=== PATIENT | female | born 1955 | race Caucasian/White ===

== ENCOUNTER 2024-12-09 16:17 | Emergency (ER) | payer MEDICARE, OTHER, SELFPAY ==
[2024-12-09 16:27] VITALS: BP 128/78; PULSE 74; TEMP 36.8; O2SAT 94; BMI 20.7
--- NOTE | 2024-12-09 16:42 | ED_ITS ---
HPI HPI - General Adult General Chief complaint: Upper Respiratory Infection Stated complaint: CONGESTION,COUGH 5TH DAY Time Seen by Provider: 12/09/24 16:19 Source: patient Mode of arrival: walk-in Related Data Previous Rx's ?Medication ?Instructions ?Recorded albuterol sulfate 90 mcg/actuation 2 inh inhalation QID PRN shortness 12/09/24 aerosol inhaler of breath or wheezing #8.5 grams benzonatate 200 mg capsule 200 mg PO TID PRN cough #20 caps 12/09/24 methylprednisolone 4 mg tablets in 4 mg PO DAILY #21 ea 12/09/24 a dose pack (Medrol (Sonny)) Allergies Allergy/AdvReac Type Severity Reaction Status Date / Time ibuprofen Allergy Severe Swelling Verified 12/09/24 16:32 of Lip/Tongue/Throat morphine Allergy Severe Vomiting Verified 12/09/24 16:32 Opioid HPI Opioid Management Most Recent Opioid Data: No Data to Display PFSH PFSH Social History Little interest or pleasure in doing things: not at all Feeling down, depressed, or hopeless: not at all Exam Narrative Exam Narrative: Prior to examining the patient, I have washed with hospital approved and provided Antiseptic [employer] and have also applied gloves.? Prior to touching the patient, I asked for consent to examine the patient.? General: Alert and oriented, well nourished, mild distress. Eye: PERRL, EOMI, normal conjunctiva. 4 mm and reactive HENT: Normocephalic, normal hearing, moist oral mucosa, no scleral icterus, no sinus tenderness. Tympanic membranes are not red, dull, bulging. Posterior oropharynx has no erythema, edema, or exudate Neck: Supple, non-tender, no carotid bruits, no JVD, no lymphadenopathy. Lungs: Clear to auscultation and percussion, non-labored respiration. Coarse breath sounds with scant end expiratory wheezing throughout. There is no rales or rhonchi appreciated. Heart: Normal rate, regular rhythm, 2 out of 4 systolic ejection murmur best auscultated at the right upper sternal border, gallop or edema. Abdomen: Soft, non-tender, non-distended, normal bowel sounds, no masses. Musculoskeletal: Normal range of motion and strength, no tenderness or swelling. Skin: Skin is warm, dry and pink, no rashes or lesions. Neurologic: Awake, alert, and oriented X3, CN II-XII intact. Psychiatric: Cooperative, appropriate mood and affect.? Following the conclusion of the examination, I have washed my hands thoroughly after removing examination gloves. Constitutional Vital Signs, click to edit/add: Last Vital Signs Temp 98.2 F 12/09/24 16:27 Pulse 75 12/09/24 17:00 Resp 18 12/09/24 16:27 BP 128/78 12/09/24 16:27 Pulse Ox 95 12/09/24 17:00 O2 Del Method Room Air 12/09/24 17:00 Course Course Hospital Course: The murmur is unknown to the patient. So on the physical exam discussion I recommended that she follow-up with her physician once her symptoms resolved. I did describe that they could have some innocent murmurs in times of illnesses but I did want her to proceed with getting follow-up for that. Vital Signs Vital signs: Vital Signs Temperature 98.2 F 12/09/24 16:27 Pulse Rate 74 12/09/24 16:27 Respiratory Rate 18 12/09/24 16:27 Blood Pressure 128/78 12/09/24 16:27 Pulse Oximetry 94 L 12/09/24 16:27 Oxygen Delivery Method Room Air 12/09/24 16:27 Temperature 98.2 F 12/09/24 16:27 Pulse Rate 75 12/09/24 17:00 Respiratory Rate 18 12/09/24 16:27 Blood Pressure 128/78 12/09/24 16:27 Pulse Oximetry 95 12/09/24 17:00 Oxygen Delivery Method Room Air 12/09/24 17:00 Medical Decision Making Lab Data Labs: Lab Results 12/09/24 Range/Units 16:34 Influenza Type A Ag Negative Influenza Type B Ag Negative SARS-CoV-2 Ag (CV2AG) Negative (NEGATIVE) Discharge Plan Discharge Chief Complaint: Upper Respiratory Infection Clinical Impression: Heart murmur, Bronchitis Patient Disposition: Home, Self-Care Time of Disposition Decision: 17:30 Condition: Good Mode of Transportation: Private Vehicle Prescriptions / Home Meds: New benzonatate 200 mg capsule 200 mg PO TID PRN (Reason: cough) Qty: 20 0RF albuterol sulfate 90 mcg/actuation HFA aerosol inhaler 2 inh inhalation QID PRN (Reason: shortness of breath or wheezing) Qty: 8.5 0RF methylprednisolone [Medrol (Sonny)] 4 mg tablets,dose pack 4 mg PO DAILY Qty: 21 0RF Rx Instructions: please use directions on package. Print Language: Hebrew Instructions: Acute Bronchitis (ED), Heart Murmur (ED) Additional Instructions: It was an honor to take care of you today. Thank you for trusting me with your care. Feel better soon.
[2024-12-09 16:55] LABS: Influenza Virus A Antigen Negative; Influenza Virus B Antigen Negative; Internal Control Within Normal Limits; SARS-CoV-2 Ag NEGATIVE (NEGATIVE)
[2024-12-09] MEDS: IPRATROPIUM/ALBUTEROL SULFATE 3 ML AMPUL.NEB IH (16:59)
[2024-12-09 17:00] VITALS: PULSE 75; O2SAT 95
[2024-12-09] MEDS: DEXAMETHASONE SOD PHOS 10 MG/ML VIAL PO (17:09)
== END 2024-12-09 17:40 | disposition home or self-care (01) ==
PROVIDERS: Emergency Provider Emergency Medicine; PCP Family Medicine
DX: J40 Bronchitis, not specified as acute or chronic (principal); R01.1 Cardiac murmur, unspecified
CPT/HCPCS: 71046; 87804; 87811; 94640; 99285; J1100

== ENCOUNTER 2025-06-11 17:59 | Emergency (ER) | payer MEDICARE, OTHER, SELFPAY ==
[2025-06-11] VITALS (7 sets, daily range): BP systolic 109–150; BP diastolic 75–77; PULSE 64–70; TEMP 36.7; O2SAT 92–98; BMI 20.6
--- OUTSIDE RECORDS SUMMARY | 2025-06-11 18:10 | XMS_ITS | CCD ---
Author Organization [facility] Care Team Providers Care Live In Companion Name Role Phone MD Rip Torres Attending Provider Furlong, DO Rogers Primary Care Provider Chinedu, Rogers Primary Care Unavailable Rip Torres Attending Unavailable Rip Torres Admitting Unavailable Rogers Che MD Primary Care Provider [phone] ROGERS CHE Referring Unavailable TURNERLONG, ROGERS Najera Primary Care Unavailable TurnerRogers may DO Primary Care Provider Rogers Che DO Primary Care Provider [phone] NEREYDA SINGH Referring Unavailable ROGERS CHE Primary Care Unavailable MAGDY MAI Referring Unavailable ROGERS CHE Primary Care Unavailable PROVIDER, UNKNOWN Referring Unavailable ROGERS CHE Primary Care Unavailable ALLY MENENDEZ Admitting Unavailable ALLY MENENDEZ Attending Unavailable FURLONG, ROGERS GEMA Primary Care Unavailab le FURLONG, ROGERS GEMA Primary Care Unavailab le VENNEPUREDDY, DON Referring Unavailable FURLONG, ROGERS GEMA Primary Care Unavailab le FURLONG, ROGERS GEMA Primary Care Unavailab le VENNEPUREDDY, DON Attending Unavailable TURNERLONG, ROGERS RIBEIRO Referring Unavailab le FURLONG, ROGERS GEMA Primary Care Unavailab le VENNEPUREDDY, DON Attending Unavailable FURLONG, ROGERS GEMA Primary Care Unavailab le FURLONG, ROGERS GEMA Primary Care Unavailab le VENNEPUREDDY, DON Attending Unavailable Furlong Rogers SCHOFIELD Primary Care Provider [phone] KAYLA RAWLS Admitting Unavailable RAWLS, CAROLINEIN Attending Unavailable RAWLS, CAROLINEIN Attending Unavailable RAWLS, CAROLINEIN Attending Unavailable RAWLS, CAROLINEIN Attending Unavailable RAWLS, JIAARAMIN Referring Unavailable RAWLS, JIANLIN Referring Unavailable FELTER, PATIENCE A Attending Unavailable FELTER, PATIENCE A Attending Unavailable FELTER, PATIENCE A Attending Unavailable RAMIRO TORRES Referring Unavailable FOREMAN, MARGY Layne Attending Unavailable FURLONG, ROGERS G Referring Unavailable FURLONG, ROGERS G Primary Care Unavailable FURLONG, ROGERS G Attending Unavailable FURLONG, ROGERS G Referring Unavailable FURLONG, ROGERS G Primary Care Unavailable FURLONG, ROGERS G Attending Unavailable FURLONG, ROGERS G Referring Unavailable FURLONG, ROGERS G Primary Care Unavailable MARGY FOREMAN Attending Unavailable FURLONG, ROGERS G Referring Unavailable FURLONG, ROGERS G Primary Care Unavailable POLINA ALMEIDA Attending Unavailable FURLONG, ROGERS G Referring Unavailable FURLONG, ROGERS G Primary Care Unavailable FURLONG, ROGERS G Referring Unavailable FURLONG, ROGERS G Primary Care Unavailable Allergies Allergy Classification Reported Allergen(s) Allergy Type Date of Onset Reaction(s) Facility (20 sources) Ibuprofen; Translations: [IBUPROFEN] Drug Allergy 4 Hives, Other: See Comments, Other (See Comments) [facility] Healthcare (20 sources) Morphine; Translations: [MORPHINE] Drug Allergy 4 Other, GI Upset, Other: See Comments, Vomiting, Other (See Comments) [facility] Medications Current Medications Medication Drug Class(es) Dates Sig (Normalized) Sig (Original) [id number] 200 actuat albuterol 0.09 mg/actuat metered dose inhaler (4 sources) beta2-Adrenergic Agonist Start: 12-09-2024 take 2 puff(s) by mouth four times daily as needed for wheezing albuterol (PROVENTIL HFA;VENTOLIN HFA) 90 mcg/actuation inhaler INHALE 2 PUFFS BY MOUTH 4 TIMES DAILY NEEDED FOR SHORTNESS OF BREATH FOR WHEEZING 12/09/2024 Active azithromycin 250 mg oral tablet (2 sources) Macrolide Antimicrobial Start: 12-22-2024 End: 12-26-2024 azithromycin (ZITHROMAX) 250 mg tablet Indications: Upper respiratory tract infection, unspecified type Take 2 tablets the first day, then 1 tablet daily for 4 days. 6 tablet 12/22/2024 12/26/2024 Active benzonatate 200 mg oral capsule (4 sources) Non-narcotic Antitussive Start: 12-09-2024 take 1 capsule by mouth three times daily as needed for cough benzonatate (TESSALON PERLES) 200 mg capsule TAKE 1 CAPSULE BY MOUTH THREE TIMES DAILY NEEDED FOR COUGH 12/09/2024 Active calcium carbonate 1500 mg oral tablet (12 sources) calcium carbonat e (OS-SAMUEL) 600 mg elemental (1,500 mg) tablet Take 2 tablets (1,200 mg total) by mouth. Active calcium carbonat e 1500 (600 Ca) MG tablet every 12 (twelve) hours. Active calcium carbonate 1250 mg / cholecalciferol 0.01 mg chewable tablet (20 sources) Vitamin D calcium carbonat e-vitamin D3 (CALCIUM 500 + D) 500 mg-10 mcg (400 unit) chewable tablet Calcium 500 + D one tablet daily Active Calcium Carbonate / vitamin D3 (4 sources) calcium carbonat e/vitamin D3 (CALCIUM WITH VITAMIN D3 ORAL) Take by mouth once daily. Active chlorhexidine gluconate 1.2 mg/ml mouthwash (8 sources) Start: 08-16-2022 chlorhexidine (Peridex) 0.12 % solution 08/16/2022 Active cholecalciferol 0.025 mg ora l capsule (9 sources) Vitamin D cholecalciferol (Vitamin D-3) 25 MCG (1000 UT) capsule 1 (one) time each day at the same time. Active End: 12-22-2024 take 1 capsule by mouth in the morning cholecalciferol, vitamin D3, 2,000 units capsule Take 1 capsule (2,000 Units total) by mouth in the morning. 12/22/2024 Discontinued (Therapy completed) clindamycin 300 mg oral capsule (5 sources) Lincosamide Antibacterial Start: 06-06-2024 take 1 capsule by mouth every six hours clindamycin (Cleocin) 300 MG capsule TAKE 1 CAPSULE BY MOUTH EVERY 6 HOURS 06/06/2024 Active cyclobenzaprine hydrochloride 10 mg oral tablet (8 sources) Muscle Relaxant Start: 01-07-2023 cyclobenzaprine (Flexeril) 10 MG tablet 01/07/2023 Active diphenhydrAMINE hydrochloride 20 mg/ml / zinc acetate 1 mg/ml topical cream (5 sources) Histamine-1 Receptor Antagonist Start: 06-25-2024 End: 06-25-2025 diphenhydrAMINE-zin c acetate (Benadryl Extra Strength) cream Indications: Rash and other nonspecific skin eruption Apply topically 3 (three) times a day as needed for itching 28 g 2 06/25/2024 06/25/2025 Active docosahexaenoic acid 120 mg / eicosapentaenoic acid 180 mg oral capsule (2 sources) omega-3 1000 MG capsule capsule Take by mouth. 0 Active esomeprazole 40 mg delayed release oral capsule (20 sources) Proton Pump Inhibitor End: 12-22-2024 take 1 capsule by mouth before mealtime esomeprazole (NexIUM) [address] capsule Take 40 mg by mouth in the morning. Take before meals. Active fexofenadine hydrochloride 180 mg oral tablet (6 sources) Histamine-1 Receptor Antagonist Start: 11-12-2023 take 1 tablet by mouth once daily fexofenadine (Alva) 180 MG tablet Indications: Dermatographism Take 1 tablet daily, by mouth, 30 days 30 tablet 11 11/12/2023 Active 12 hr fexofenadine hydrochloride 60 mg / pseudoephedrine hydrochloride 120 mg extended release oral tablet (20 sources) alpha-Adrenergic Agonist, Histamine-1 Receptor Antagonist take 1 tablet by mouth once daily fexofenadine-pseudo ephedrine (ALVA-D) 60-120 mg per 12 hr tablet Take 1 tablet by mouth once daily. Active 24 hr mirabegron 50 mg extended release oral tablet (17 sources) beta3-Adrenergic Agonist Start: 11-06-2023 End: 11-05-2024 take 1 tablet by mouth every twenty-four hours in the morning mirabegron ER (Myrbetriq) 50 MG 24 hr tablet Indications: Urinary urgency Take 1 tablet (50 mg) by mouth in the morning. Do not crush, chew, or split.. 30 tablet 11 11/06/2023 11/05/2024 Active omeprazole 40 mg delayed release oral capsule (7 sources) Proton Pump Inhibitor Start: 10-13-2024 End: 10-13-2025 take 1 capsule by mouth once daily omeprazole (PRILOSEC) 40 mg capsule Take 40 mg by mouth once daily. 10/13/2024 10/13/2025 Active 24 hr oxybutynin chloride 10 mg extended release oral tablet (20 sources) Cholinergic Muscarinic Antagonist Start: 03-25-2024 End: 03-25-2025 take 1 tablet by mouth once daily oxybutynin XL (DITROPAN-XL) 10 mg 24 hr tablet TAKE 1 TABLET BY MOUTH ONCE DAILY DO NOT CRUSH CHEW OR SPLIT 05/26/2024 Active sertraline 25 mg oral tablet (20 sources) Serotonin Reuptake Inhibitor Start: 01-29-2025 take 1 tablet by mouth in the morning sertraline (ZOLOFT) 25 mg tablet Indications: Mild major depression TAKE 1 TABLET BY MOUTH IN THE MORNING 90 tablet 1 01/29/2025 Active Start: 05-26-2024 End: 01-29-2025 take 1 tablet by mouth in the morning sertraline (ZOLOFT) 25 mg tablet Indications: Mild major depression Take 1 tablet (25 mg total) by mouth in the morning. 90 tablet 1 08/19/2024 01/29/2025 Discontinued Start: 08-07-2023 End: 08-19-2024 take 1 tablet by mouth in the morning sertraline (ZOLOFT) 50 mg tablet take 1 tablet by mouth in the morning 180 tablet 05/25/2024 08/19/2024 Discontinued (Reorder) Start: 04-03-2023 take 2 tablets by mo uth in the morning sertraline (Zoloft) 25 MG tablet Take 50 mg by mouth in the morning. 04/03/2023 Active vit C/E/Zn/coppr/lutein/zeax an (PRESERVISION AREDS-2 ORAL) (4 sources) vit C/E/Zn/coppr /lutein/zeaxan (PRESERVISION AREDS-2 ORAL) Take by mouth once daily. Active Zinc (8 sources) take 50 mg by mouth in the morning ZINC ORAL Take 50 mg by mouth in the morning. Active ZINC ORAL Take b y mouth once daily. Active Completed/Discontinued Medications Medication Drug Class(es) Dates Sig (Normalized) Sig (Original) lansoprazole 30 mg delayed release oral capsule (2 sources) Proton Pump Inhibitor End: 11-06-2023 take 1 capsule by mouth once daily lansoprazole (Prevacid) [address] capsule Take 1 capsule every day by oral route. 0 11/06/2023 Discontinued (Therapy completed) omega 0-ltv-fou-fish oil (Fish OiL) 300-1,000 mg capsule (11 sources) End: 05-26-2024 omega 4-uzh-xvm-fish oil (Fish OiL) 300-1,000 mg capsule Take by mouth. 05/26/2024 Discontinued (Therapy completed) omega 3-dha-epa- fish oil (Fish OiL) 300-1,000 mg capsule Take by mouth. Active omega 3-dha-epa- fish oil (Fish OiL) 300-1,000 mg capsule Take by mouth. 0 Active zinc gluconate 50 mg oral tablet (15 sources) End: 06-16-2024 take 1 tablet by mouth in the morning zinc gluconate 50 mg tablet Take 1 tablet (50 mg total) by mouth in the morning. 06/16/2024 Discontinued (Therapy completed) Problems Active Problems Problem Classification Problem Date Documented Da te Episodic/Chronic Allergic reactions (3 sources) Irritant contact dermatitis caused by chemical; Translations: [Irritant contact dermatitis due to other chemical products] 06-16-2024 Episodic Anxiety disorders (8 sources) Anxiety; Translations: [Anxiety disorder, unspecified] Onset: 4 11-01-2023 Chronic Diseases of white blood cells (10 sources) Decreased white blood cell count, unspecified; Translations: [Neutropenia] Onset: 4 09-16-2024 Chronic Disorders of lipid metabolism (20 sources) Hypercholesterolemia; Translations: [Pure hypercholesterolemia, unspecified] Onset: 3 11-01-2023 Chronic Esophageal disorders (20 sources) Gastroesophageal reflux disease; Translations: [Gastro-esophageal reflux disease without esophagitis] Onset: 2 11-01-2023 Chronic Essential hypertension (1 source) Hypertensive disorder Onset: Chronic Genitourinary symptoms and ill-defined conditions (10 sources) Urge incontinence of urine; Translations: [Urge incontinence] Onset: 4 11-06-2023 Chronic Genitourinary symptoms and ill-defined conditions (2 sources) Urgent desire to urinate; Translations: [Urgency of urination] 11-06-2023 Episodic Mood disorders (20 sources) Mild major depression; Translations: [Major depressive disorder, single episode, mild] Onset: 3 Resolved: 4 11-01-2023 Chronic Non-Hodgkin`s lymphoma (2 sources) History of malignant hematologic neoplasm; Translations: [Personal history of other malignant neoplasms of lymphoid, hematopoietic and related tissues] Onset: 5 10-28-2024 Episodic Nutritional deficiencies (9 sources) Vitamin D deficiency; Translations: [Vitamin D deficiency, unspecified] Onset: 4 11-01-2023 Chronic Osteoporosis (20 sources) Senile osteoporosis; Translations: [Age-related osteoporosis without current pathological fracture] Onset: 2 11-01-2023 Chronic Other circulatory disease (2 sources) Spider nevus; Translations: [Nevus, non-neoplastic] 06-25-2024 Episodic Other gastrointestinal disorders (20 sources) Irritable bowel syndrome; Translations: [Irritable bowel syndrome without diarrhea] Onset: 2 11-01-2023 Chronic Other hematologic conditions (1 source) Red blood cell disorder; Translations: [Other abnormality of red blood cells] 09-16-2024 Episodic Other hematologic conditions (1 source) Other abnormality of red blood cells; Translations: [Other abnormality of red blood cells] Onset: 4 Episodic Other screening for suspected conditions (not mental disorders or infectious disease) (5 sources) Cancer cervix screening status; Translations: [Encounter for screening for malignant neoplasm of cervix] Onset: 4 11-01-2023 Episodic Other skin disorders (4 sources) Seborrheic keratosis; Translations: [Other seborrheic keratosis] 06-25-2024 Episodic Other skin disorders (2 sources) Lentiginosis; Translations: [Other melanin hyperpigmentation] 06-25-2024 Episodic Other skin disorders (2 sources) Eruption; Translations: [Rash and other nonspecific skin eruption] 06-25-2024 Episodic Other skin disorders (2 sources) Inflamed seborrheic keratosis; Translations: [Inflamed seborrheic keratosis] 02-25-2025 Episodic Other upper respiratory infections (2 sources) Upper respiratory infection; Translations: [Acute upper respiratory infection, unspecified] Onset: 5 12-22-2024 Episodic Residual codes; unclassified (20 sources) Sleep apnea; Translations: [Sleep apnea, unspecified] Onset: 3 11-01-2023 Chronic Residual codes; unclassified (2 sources) Hypersomnia; Translations: [Hypersomnia, unspecified] 10-22-2023 Chronic Residual codes; unclassified (7 sources) Obstructive sleep apnea syndrome; Translations: [Obstructive sleep apnea (adult) (pediatric)] 10-22-2023 Chronic Residual codes; unclassified (1 source) Initial insomnia; Translations: [Other insomnia] 10-22-2023 Chronic Residual codes; unclassified (2 sources) Insomnia; Translations: [Other insomnia] 02-25-2024 Chronic Residual codes; unclassified (2 sources) Obstructive sleep apnea (adult) (pediatric); Translations: [Obstructive sleep apnea (adult) (pediatric)] Onset: 4 Chronic Screening and history of mental health and substance abuse codes (2 sources) Patient encounter status; Translations: [Encounter for screening for depression] 02-24-2024 Episodic Unclassified (1 source) Unspecified temporomandibular joint disorder, unspecified side; Translations: [Unspecified temporomandibular joint disorder, unspecified side] Onset: 2 Unclassified (1 source) wound on leg recheck Onset: 4 Past or Other Problems Problem Classification Problem Date Documented Da te Episodic/Chronic Abdominal hernia (20 sources) Diaphragmatic hernia; Translations: [Diaphragmatic hernia without obstruction or gangrene] Onset: 2 11-01-2023 Episodic Abdominal pain (2 sources) Epigastric pain; Translations: [Epigastric pain] Onset: 5 Episodic Disorders of teeth and jaw (20 sources) Inflammatory conditions of jaws; Translations: [Inflammatory conditions of jaw] Onset: 3 11-01-2023 Episodic Joint disorders and dislocations; trauma-related (20 sources) Dislocation of temporomandibular joint; Translations: [Dislocation of jaw, unspecified side, initial encounter] Onset: 3 11-01-2023 Episodic Malaise and fatigue (1 source) Fatigue; Translations: [Other fatigue] 10-22-2023 Episodic Mood disorders (20 sources) Mood disorders Onset: 4 Resolved: 5 02-20-2024 Other female genital disorders (8 sources) Burning sensation of vagina; Translations: [Unspecified condition associated with female genital organs and menstrual cycle] Onset: 4 11-01-2023 Episodic Other gastrointestinal disorders (20 sources) Heartburn; Translations: [Heartburn] Onset: 2 11-01-2023 Episodic Other gastrointestinal disorders (1 source) Heartburn; Translations: [Heartburn] Onset: 4 Episodic Other non-traumatic joint disorders (6 sources) Chronic ankle pain; Translations: [Pain in unspecified ankle and joints of unspecified foot] Onset: 5 10-28-2024 Episodic Other nutritional; endocrine; and metabolic disorders (20 sources) Abnormal weight loss; Translations: [Abnormal weight loss] Onset: 2 11-01-2023 Episodic Other skin disorders (1 source) History of cellulitis; Translations: [Personal history of diseases of the skin and subcutaneous tissue] 06-16-2024 Episodic Residual codes; unclassified (3 sources) Other specified health status; Translations: [Other specified conditions influencing health status] Onset: 4 05-26-2024 Episodic Urinary tract infections (20 sources) Urinary tract infectious disease; Translations: [Urinary tract infection, site not specified] Resolved: 3 02-19-2023 Episodic Results Test Name Value Interpretation Reference Range Facility No Panel Informationon 02-25 [facility] Healthcare 36on 01-29-2025 36 90 day with 1 refill sent to pharmacy. Normal [facility] Refillon 01-29-2025 Refill [id number] Davida Larson 1955 F Date Provider Department Center 01/29/2025 Frank-KAYLA RAWLS [facility] Fl No family history on file Reason for Visit and Comments: Med Refill [[id number]] Normal [facility] CBC W Auto Differential pane l (Bld)on 12-09-2024 Basophils (Bld) [#/Vol] 0.00 10*3/uL Normal <0.11 [facility] Comment on above: Order Comment: Speci men Type: BLOOD SPECIMEN Ordering Facility: [facility] Address: [address] [place] [address] Performed By: #### Lissette OPPER, 5763-8 #### [facility] CLIA [id number] [address] [place] [address] [place] Basophils/100 WBC (Bld) 0.0 % Normal [facility] Comment on above: Order Comment: Speci men Type: BLOOD SPECIMEN Ordering Facility: [facility] Address: [address] [place] [address] Performed By: #### Lissette OPPER, 5763-8 #### [facility] CLIA [id number] [address] [place] [address] [place] Differential cell count method Nom (Bld) Manual Normal [facility] Comment on above: Order Comment: Speci men Type: BLOOD SPECIMEN Ordering Facility: [facility] Address: [address] [place] [address] Performed By: #### Lissette BEYER, 5763-8 #### [facility] CLIA [id number] [address] [place] [address] [place] Eosinophils (Bld) [#/Vol] 0.04 10*3/uL Normal <0.46 [facility] Comment on above: Order Comment: Speci men Type: BLOOD SPECIMEN Ordering Facility: [facility] Address: [address] [place] [address] Performed By: #### Lissette OPPER, 5763-8 #### [facility] CLIA [id number] [address] [place] [address] [place] Eosinophils/100 WBC (Bld) 1.0 % Normal [facility] Comment on above: Order Comment: Speci men Type: BLOOD SPECIMEN Ordering Facility: [facility] Address: [address] [place] [address] Performed By: #### Lissette OPPER, 5763-8 #### [facility] CLIA [id number] [address] [place] [address] [place] Erythrocyte distribution width (RBC) [Ratio] 12.8 % Normal 11.5-15.0 [facility] Comment on above: Order Comment: Speci men Type: BLOOD SPECIMEN Ordering Facility: [facility] Address: [address] [place] [address] Performed By: #### Lissette BEYER, 5763-8 #### [facility] CLIA [id number] [address] [place] [address] [place] Hematocrit (Bld) [Volume fraction] 38.3 % Normal 36.0-46.0 [facility] Comment on above: Order Comment: Speci men Type: BLOOD SPECIMEN Ordering Facility: [facility] Address: [address] [place] [address] Performed By: #### Lissette BEYER, 5763-8 #### [facility] CLIA [id number] [address] [place] [address] [place] Hemoglobin (Bld) [Mass/Vol] 12.6 g/dL Normal 11.5-15.5 [facility] Comment on above: Order Comment: Speci men Type: BLOOD SPECIMEN Ordering Facility: [facility] Address: [address] [place] [address] Performed By: #### Lissette BEYER, 5763-8 #### [facility] CLIA [id number] [address] [place] [address] [place] Lymphocytes (Bld) [#/Vol] 1.80 10*3/uL Normal 1.00-4.00 [facility] Comment on above: Order Comment: Speci men Type: BLOOD SPECIMEN Ordering Facility: [facility] Address: [address] [place] [address] Performed By: #### Lissette OPMARYLOU, 5763-8 #### [facility] CLIA [id number] [address] [place] [address] [place] Lymphocytes/100 WBC (Bld) 42.0 % Normal [facility] Comment on above: Order Comment: Speci men Type: BLOOD SPECIMEN Ordering Facility: [facility] Address: [address] [place] [address] Performed By: #### Lissette BEYER, 5763-8 #### [facility] CLIA [id number] [address] [place] [address] [place] MCH (RBC) [Entitic mass] 32.1 pg Normal 26.0-34.0 [facility] Comment on above: Order Comment: Speci men Type: BLOOD SPECIMEN Ordering Facility: [facility] Address: [address] [place] [address] Performed By: #### Lissette BEYER, 5763-8 #### [facility] CLIA [id number] [address] [place] [address] [place] MCHC (RBC) [Mass/Vol] 32.9 g/dL Normal 30.5-36.0 [facility] Comment on above: Order Comment: Speci men Type: BLOOD SPECIMEN Ordering Facility: [facility] Address: [address] [place] [address] Performed By: #### Lissette BEYER, 5763-8 #### [facility] CLIA [id number] [address] [place] [address] [place] MCV (RBC) [Entitic vol] 97.7 fL Normal 80.0-100.0 [facility] Comment on above: Order Comment: Speci men Type: BLOOD SPECIMEN Ordering Facility: [facility] Address: [address] [place] [address] Performed By: #### Lissette BEYER, 5763-8 #### [facility] CLIA [id number] [address] [place] [address] [place] Monocytes (Bld) [#/Vol] 0.34 10*3/uL Normal <0.87 [facility] Comment on above: Order Comment: Speci men Type: BLOOD SPECIMEN Ordering Facility: [facility] Address: [address] [place] [address] Performed By: #### Lissette BEYER, 5763-8 #### [facility] CLIA [id number] [address] [place] [address] [place] Monocytes/100 WBC (Bld) 8.0 % Normal [facility] Comment on above: Order Comment: Speci men Type: BLOOD SPECIMEN Ordering Facility: [facility] Address: [address] [place] [address] Performed By: #### Lissette BEYER, 5763-8 #### [facility] CLIA [id number] [address] [place] [address] [place] Neutrophils (Bld) [#/Vol] 2.10 10*3/uL Normal 1.45-7.50 [facility] Comment on above: Order Comment: Speci men Type: BLOOD SPECIMEN Ordering Facility: [facility] Address: [address] [place] [address] Performed By: #### Lissette BEYER, 5763-8 #### [facility] CLIA [id number] [address] [place] [address] [place] Neutrophils/100 WBC (Bld) 49.0 % Normal [facility] Comment on above: Order Comment: Speci men Type: BLOOD SPECIMEN Ordering Facility: [facility] Address: [address] [place] [address] Performed By: #### Lissette BEYER, 5763-8 #### [facility] CLIA [id number] [address] [place] [address] [place] Nucleated RBC (Bld) [#/Vol] 10*3/uL Normal <0.01 [facility] Comment on above: Order Comment: Speci men Type: BLOOD SPECIMEN Ordering Facility: [facility] Address: [address] [place] [address] Performed By: #### Lissette BEYER, 5763-8 #### [facility] CLIA [id number] [address] [place] [address] [place] Nucleated RBC/100 WBC (Bld) [Ratio] 0.0 /100 WBC Normal [facility] Comment on above: Order Comment: Speci men Type: BLOOD SPECIMEN Ordering Facility: [facility] Address: [address] [place] [address] Performed By: #### Lissette BEYER, 5763-8 #### [facility] CLIA [id number] [address] [place] [address] [place] Ovalocytes LM Ql (Bld) Few Normal [facility] Comment on above: Order Comment: Speci men Type: BLOOD SPECIMEN Ordering Facility: [facility] Address: [address] [place] [address] Performed By: #### Lissette BEYER, 5763-8 #### [facility] CLIA [id number] [address] [place] [address] [place] Platelet mean volume (Bld) [Entitic vol] 9.3 fL Normal 9.0-12.7 [facility] Comment on above: Order Comment: Speci men Type: BLOOD SPECIMEN Ordering Facility: [facility] Address: [address] [place] [address] Performed By: #### Lissette BEYER, 5763-8 #### [facility] CLIA [id number] [address] [place] [address] [place] Platelets (Bld) [#/Vol] 198 10*3/uL Normal 150-400 [facility] Comment on above: Order Comment: Speci men Type: BLOOD SPECIMEN Ordering Facility: [facility] Address: [address] [place] [address] Performed By: #### Lissette BEYER, 5763-8 #### [facility] CLIA [id number] [address] [place] [address] [place] Platelets Estimate (Bld) [#/Vol] Adequate Normal [facility] Comment on above: Order Comment: Speci men Type: BLOOD SPECIMEN Ordering Facility: [facility] Address: [address] [place] [address] Performed By: #### Lissette BEYER, 5763-8 #### [facility] CLIA [id number] [address] [place] [address] [place] RBC (Bld) [#/Vol] 3.92 10*6/uL Normal 3.90-5.20 [facility] Comment on above: Order Comment: Jakobi men Type: BLOOD SPECIMEN Ordering Facility: [facility] Address: [address] [place] [address] Performed By: #### Lissette BEYER, 5763-8 #### [facility] CLIA [id number] [address] [place] [address] [place] RED CELL MORPH Reviewed: see result s of individual morphologies Normal [facility] Comment on above: Order Comment: Jakobi men Type: BLOOD SPECIMEN Ordering Facility: [facility] Address: [address] [place] [address] Performed By: #### Lissette BEYER, 5763-8 #### [facility] CLIA [id number] [address] [place] [address] [place] WBC (Bld) [#/Vol] 4.28 10*3/uL Normal 3.70-11.00 [facility] Comment on above: Order Comment: Segundo ferrara Type: BLOOD SPECIMEN Ordering Facility: [facility] Address: [address] [place] [address] Performed By: #### Lissette BEYER, 5763-8 #### [facility] CLIA [id number] [address] [place] [address] [place] CNOVSPon 12-09-2024 CNOVSP Visit (SP) Office ( KRISTINA) STEPHANIE LARSON ([id number]) 1955 F Date Time Provider Department 12/09/24 2:00 PM DON VILLANUEVA During your visit today, we recorded the following information about you: Temperature Pulse Respiration Blood pressure 97.6 degrees 78/minute 16/minute 126/78 Weight 53.2 kg Cornelio Ayoub MA 12/09/2024 2:07 PM Signed Clinical questionnaires incomplete due to Patient declined to complete or answer questions with nurse Don Villanueva MD 12/09/2024 1:55 PM Signed CBC today F/u in 6 months Don Villanueva MD 12/09/2024 2:07 PM Signed PATIENT NAME: Stephanie Larsno CLINIC NO.: [id number] ATTENDING PHYSICIAN: Don Villanueva MD DATE OF SERVICE: 12/09/[address] Rogers Che MD ([facility]) [address] [facility] [address] thank you for referring Stephanie Larson for an opinion regarding Leukopenia. Some of the elements of this note have been copied from my previous progress note dated 10/28/24. All the information has been reviewed carefully. CHIEF COMPLAINT: Leukopenia HPI: Stephanie Larson is a 68 year old year old female with GERD, depression referred to us for leukopenia. No smoking Occasionally drinks alcohol DEXA scan showed osteoporosis Uptodate with mammogram. CBC on 08/19/24 showed WBC 2.5 and ANC 1.0 No complaints 10/28/24: - Doing well - No major complaints - Denies infections 12/09/24: - BM biopsy showed Normocellular bone marrow with trilineage hematopoiesis - NGS studies showed BCORL1 - Normal cytogenetics - T cell receptor gene arrangement is negative. Current Outpatient Medications Medication Sig omeprazole (PRILOSEC) 40 mg capsule Take 40 mg by mouth once daily. vit C/E/Zn/coppr/lutein/zeaxan (PRESERVISION AREDS-2 ORAL) Take by mouth once daily. calcium carbonate/vitamin D3 (CALCIUM WITH VITAMIN D3 ORAL) Take by mouth once daily. ZINC ORAL Take by mouth once daily. esomeprazole (NEXIUM) 40 mg capsule Take 40 mg by mouth once daily. sertraline (ZOLOFT) 25 mg tablet Take 25 mg by mouth every morning. oxybutynin ER (DITROPAN XL) 10 mg 24 hr tablet TAKE 1 TABLET BY MOUTH ONCE DAILY DO NOT CRUSH CHEW OR SPLIT fexofenadine-pseudoephedrine (ALVA D) 60-120 mg per tablet Take 1 tablet by mouth once daily. No current facility-administered medications for this visit. ALLERGIES Allergen Reactions Ibuprofen Hives, Other: See Comments Also experiences sores in mouth after taking Ibuprofen Other Reaction(s): hives and sores, other Also experiences sores in mouth after taking Ibuprofen Other Reaction(s): other Also experiences sores in mouth after taking Ibuprofen Other Reaction(s): hives and sores, other Also experiences sores in mouth after taking Ibuprofen Other Reaction(s): other Morphine GI Upset, Other: See Comments, Vomiting Other Reaction(s): other, Unknown, Vomiting Other Reaction(s): Vomiting Other Reaction(s): other, Unknown, Vomiting Other Reaction(s): Vomiting PAST MEDICAL HISTORY Diagnosis Date Depression GERD (gastroesophageal reflux disease) Hiatal hernia Hypercholesterolemia Leukopenia PAST SURGICAL HISTORY Procedure Laterality Date PAST SURGICAL HISTORY OF EGD PAST SURGICAL HISTORY OF Tooth Post FAMILY HISTORY Problem Relation Age of Onset Hypertension Father Diabetes Father Social History Tobacco Use Smoking status: Never Smokeless tobacco: Never Substance Use Topics Alcohol use: Yes Drug use: Never REVIEW OF SYSTEMS GENERAL: No weight loss, malaise or fevers. No night sweats. HEENT: Negative for headaches, No changes in hearing or vision, no nose bleeds or other nasal problems. RESPIRATORY: Negative for cough, wheezing and shortness of breath CARDIOVASCULAR: Negative for chest pain, leg swelling and palpitations GI: Negative for abdominal discomfort, blood in stools or black stools and change in bowel habits : Negative for dysuria, frequency and incontinence MUSCULOSKELETAL: Negative for joint pain or swelling, back pain, and muscle pain. SKIN: Negative for lesions, rash, and itching. HEMATOLOGY/LYMPHOLOGY Negative for prolonged bleeding, bruising easily, and swollen nodes. NEURO: Negative for numbness or tingling of hands/feet. No weakness. PHYSICAL EXAMINATION: There were no vitals taken for this visit. There were no vitals taken for this visit. No data found for this vital: Wt General appearance:ECOG PERFORMANCE STATUS: 0- Fully active, able to carry on all pre-disease performance w/o restriction. Patient in NAD. Skin: Skin color, texture, turgor normal. No rashes or lesions. Eyes: Anicteric sclera. Pupils are equally round and reactive to light. Extraocular movements are intact. Breast: No palpable breast masses. No nipple change or discharge. Lymph Nodes: No cervical, supraclavicular, axillary (more content not included)... Normal [facility] BLOOD UREA NITROGENon 2024 Urea nitrogen [Mass/Vol] 12 mg/dL Normal 5-27 [facility] Comment on above: Performed By: #### 3 5365-6, 2777-1, 12728-2, [facility], 68122-9, 3094-0 #### [facility] ([id number]) [address], [address] [place] [address] CALCIUMon 11-24-2024 Calcium [Mass/Vol] 9.5 mg/dL Normal 8.5-10.5 [facility] Comment on above: Performed By: #### 3 5365-6, 2777-1, 89597-3, [facility], 70750-3, 3094-0 #### [facility] ([id number]) [address], [address] [place] [address] CREATININEon 11-24-2024 Creatinine [Mass/Vol] 0.74 mg/dL Normal 0.40-1.00 [facility] Comment on above: Result Comment: METH OD TRACEABLE TO IDMS STANDARD Performed By: #### 3 5365-6, 2777-1, 20565-3, [facility], 54973-5, 3094-0 #### [facility] ([id number]) [address], [address] [place] [address] GFR/1.73 sq M.predicted among non-blacks MDRD (S/P/Bld) [Vol rate/Area] 87 mL/min/{1.73_m2} Normal >59 [facility] Comment on above: Result Comment: Reported eGFR is based on the CKD-EPI 2020 equation that does not use a race coefficient. Performed By: #### 3 5365-6, 2777-1, 74397-6, [facility], , 3094-0 #### [facility] ([id number]) [address], [address] [place] [address] MAGNESIUMon 11-24-2024 Magnesium [Mass/Vol] 1.8 mg/dL Normal 1.8-2.6 [facility] Comment on above: Performed By: #### 3 5365-6, 2777-1, 24169-5, [facility], , 3094-0 #### [facility] ([id number]) [address], [address] [place] [address] PHOSPHORUSon 11-24-2024 Phosphate [Mass/Vol] 4.5 mg/dL Normal 2.4-4.9 [facility] Comment on above: Performed By: #### 3 5365-6, 2777-1, 49839-8, [facility], , 3094-0 #### [facility] ([id number]) [address], [address] [place] [address] Vitamin D+Metabolites [Mass/ Vol]on 11-24-2024 VITAMIN D 25 HYD TOT 56.7 ng/mL Normal 30-100 [facility] Comment on above: Result Comment: Vitamin D status 25 [place] Vitamin D Deficiency <20 ng/mL Insufficiency 20-29 ng/mL Sufficiency 30-100 ng/mL Toxicity >100 ng/mL NOTE: A pediatric reference range has not been established by the extermination inspector of this kit. The [place] [employer] recommends a Vitamin D level of = or >20ng/mL in infants and children. Performed By: #### 3 5365-6, 2777-1, 37445-6, [employer], 19995-9, 3094-0 #### [facility] ([id number]) [address] [facility], [address] [place] [address] ACUTE LEUKEMIA NGS PANEL, CARLOS NE MARROWon 11-19-2024 ACUTE LEUK NGS PANEL, BONE MARROW Normal [facility] Comment on above: Order Comment: Speci men Type: BONE MARROW SPECIMEN Ordering Facility: [facility] Address: [address] [place] [address] Result Comment: Acut e Leukemia NGS Panel, Bone Marrow Laboratory Accession Number: [id number] Result: Please see linked document and/or separate report for full result when available. As reviewed by Junior Peralta MD Performed By: #### F 3IM, HDMNGS #### [facility] CLIA [id number] [address] [place] [address] OF [facility] ALLIED HEALTHon 11-19-2024 ALLIED HEALTH HNO ID: [id number] Author: LINDY HENRY TECHNOLOGIST Service: ? Author Type: Technologist Type: Allied Health Filed: 11/19/2024 12:05 Note Text: Radiology Service Progress Note PATIENT NAME: Stephanie Larson DATE OF SERVICE: November 19, 2024 TIME: 12:05 PM PATIENT IDENTITY VERIFICATION COMPLETED USING TWO (2) IDENTIFIERS: Name and Date of confirmed by patient verbally. FALL SCREENING: Has the patient had 2 falls in the last year or 1 fall with injury or currently using an Ambulatory Assistive Device (Walker, Cane, Wheelchair, Crutches, etc.)? No PATIENT GENDER DATA: Assigned female at . status: : No status: NO. PATIENT RELEVANT IMPLANT DATA REVIEWED: Not Applicable PATIENT PRESENTS WITH AN IMPLANTABLE OR ATTACHED DISPATCHER CLERK: No RADIOLOGY DEPARTMENT: Biopsy PERIPHERAL IV DATA: Not applicable SIGNED BY: TECHNOLOGIST Scooter November 19, 2024 12:05 PM [facility] BONE MARROW ANALYSISon 11-19 CASE REPORT [facility] Comment on above: Order Comment: Speci men Type: BONE MARROW SPECIMEN Ordering Facility: [facility] Address: [address] [place] [address] Result Comment: Bone Marrow Pathology Report Case: [id number] Authorizing Provider: Don Villanueva MD Collected: 11/19/2024 12:03 PM Ordering Location: [facility] Received: 11/19/2024 01:41 PM RADIOLOGY Pathologist: Sandra Haas MD Specimens: A) - Bone Marrow, Aspirate, Left, Posterior, Iliac Crest B) - Bone Marrow, Biopsy, Left, Posterior, Iliac Crest C) - Bone Marrow, Clot, Left, Posterior, Iliac Crest D) - Blood Performed By: #### B MRT #### [facility] CLIA [id number] [address] [place] [address] [place] FINAL DIAGNOSIS Normal [facility] Comment on above: Order Comment: Segundo ferrara Type: BONE MARROW SPECIMEN Ordering Facility: [facility] Address: [address] [place] [address] Result Comment: A-C. Bone marrow, aspirate smear, touch imprint and core biopsy, with clot section: - Normocellular bone marrow with trilineage hematopoiesis. - Lymphoid aggregates present, favor reactive. - Stainable iron is present. - See comment. D. Peripheral blood smear: - Mild leukopenia. SB/ November 23, 2024 at 1546 EST Performed By: #### B MRT #### [facility] CLIA [id number] [address] [place] [address] [place] GROSS DESCRIPTION Normal [facility] Comment on above: Order Comment: Speci men Type: BONE MARROW SPECIMEN Ordering Facility: [facility] Address: [address] [place] [address] Result Comment: A. B one Marrow, Aspirate, Left, Posterior, Iliac Crest Received are air-dried bone marrow aspirate smears. Submitted for light microscopy. B. Bone Marrow, Biopsy, Left, Posterior, Iliac Crest Received in formalin is one segment of cylindrical tissue measuring 1.0 x 0.5 x 0.5 cm, arthur to red-brown and of a firm consistency. Totally submitted in formalin in one cassette after decalcification. Bone marrow touch imprints also received. Submitted for light microscopy. C. Bone Marrow, Clot, Left, Posterior, Iliac Crest Received in formalin is a segment of red-brown hemorrhagic material measuring 3.6 x 1.2 x 0.5 cm. Totally submitted in two cassettes. D. Blood Received is a peripheral blood smear. Submitted for light microscopy. [facility] November 19, 2024 7:16 PM Gross examination performed at [facility], [address] [place] [address] Performed By: #### B MRT #### [facility] CLIA [id number] [address] [place] [address] [id number] [place] MICROSCOPIC DESCRIPTION Normal [facility] Comment on above: Order Comment: Speci men Type: BONE MARROW SPECIMEN Ordering Facility: [facility] Address: [address] [place] [address] Result Comment: NALLELY PHERAL BLOOD: CBC (11/19/2024 11:26 AM) Diff: Auto WBC 3.57 k/uL Neutrophils % 45.4 Hemoglobin 12.0 g/dL Lymphocytes % 42 MCV 95.7 fL Monocytes % 9.5 RDW-CV 12.6 % Eosinophils % 1.4 Platelet Count 255 k/uL Basophils % 1.4 Immature Granulocytes % 0.3 Morphology/Interpretation: Mild leukopenia. BONE MARROW ASPIRATE: Result Normal Range 1 % Blasts 0-2 0 % Promyelocytes 1-5 52 % Myelos/Metas/Bands/Segs 32-72 1 % Eosinophils 1-6 0 % Basophils 0-1 4 % Monocytes 0-4 21 % Erythroid precursors 13-37 20 % Lymphocytes 7-23 1 % Plasma cells 0-2 Myeloid/Erythro (1.5-4): 2.7 Cells counted: 300. Iron stain result: Stainable iron is present. No ring sideroblasts seen. Specimen Quality: Paucispicular but adequately cellular aspirate smears. Megakaryocytes: Present, normal morphology. Erythropoiesis: Progressive maturation. Granulopoiesis: Progressive maturation with mild left shift. Other: Occasional blasts and plasma cells seen. BONE MARROW BIOPSY: Adequacy: Suboptimal (small, fragmented with aspiration artifact). Cellularity: Normal, approximately 20-30%. ME ratio: Normal. Hematopoiesis: Trilineage hematopoiesis. Megakaryocytes: Adequate. Megakaryocyte morphology: Unremarkable. Lymphoid infiltrate: No small lymphoid aggregates are seen predominantly composed of small lymphocytes, favor reactive. Bone trabeculae: Bone trabeculae are thinned consistent with history of osteoporosis. CLOT SECTION: Marrow particles: Many. Morphology: Similar biopsy. Other: Small lymphoid aggregates seen, favor reactive. ANCILLARY TESTS: Flow cytometry: Performed, see associated flow cytometry report [id number] . Cytogenetics: Pending. FISH: Not performed. Molecular: Buffy coat stored. T-cell clonality studies and acute leukemia NGS studies pending. Performed By: #### B MRT #### [facility] CLIA [id number] [address] [place] [address] [place] BONE MARROW CHROMOSOME ANALo n 11-19-2024 CHROMOSOME BM Normal [facility] Comment on above: Order Comment: Speci men Type: BONE MARROW SPECIMEN Ordering Facility: [facility] Address: [address] [place] [address] Result Comment: Nurysdebbi marcela Accession Number: [id number] Doctor: DON VILLANUEVA Pathologist: [facility] No: [id number] Clinical diagnosis: Neutropenia Specimen Type: Bone Marrow Received Date: 11/19/2024 Number of cells counted: 20 Number of cells analyzed: 20 Number of cells karyotyped: 20 Banding resolution: 400 Banding method: G-banding DIAGNOSIS: 46,XX[20] INTERPRETATION: Normal, female karyotype COMMENT: Ten metaphase cells were analyzed from the culture supplemented with GM-CSF and ten metaphase cells were analyzed from the 24 hour unstimulated culture. Twenty cells analyzed showed a 46,XX karyotype. There was no significant numerical chromosome abnormality and no structural change detected within the limits of resolution. Clinical and pathologic correlation is recommended. As reviewed by Mathew Devine MD Performed by [facility] Molecular Pathology and Cytogenomics ([id number]), Division of Laboratory Medicine Naty Stewart Department of Pathology & Laboratory Medicine, Diagnostics [place] [address] [place] [address]. [place] [address] Toll free: Performed By: #### C HRBM #### [facility] CLIA [id number] [address] [place] [address] [place] BRIEF OP NOTon 11-19-2024 BRIEF OP NOT HNO ID: [id number] Author: ALLY MENENDEZ MD Service: Radiology Author Type: Physician Type: Brief Op Note Filed: 11/19/2024 12:22 Note Text: BRIEF OPERATIVE / PROCEDURE NOTE LOG ID: [id number] SURGERY/PROCEDURE DATE: 11/19/2024 INCISION/PROCEDURE START TIME: 12:04 PM INCISION CLOSE/PROCEDURE END TIME: 12:08 PM SURGEON(S)/PROCEDURALIST(S) AND GAMBRELER HELPER(S): Surgeons and Role: * Ally Menendez MD - Primary No Additional Staff SURGERY/PROCEDURE(S): CT GUIDED BONE MARROW ASPIRATION AND BIOPSY ANESTHESIA: Procedural Sedation FINDINGS: LEFT ILIAC ACCESSED POSTERIORLY USING 11 G NEEDLE AND ASPIRATION AND BIOPSY OBTAINED. NO HEMATOMA. ESTIMATED BLOOD LOSS: 30 mls SPECIMENS: 2 CC X 1, 4 CC X 6 AND CORE COMPLICATIONS: None PRE-OP/PRE-PROCEDURE DIAGNOSIS: NEUTROPENIA POST-OP/POST-PROCEDURE DIAGNOSIS: Same as Preop SIGNATURE: Ally Menendez MD PATIENT NAME: Stephanie Larson DATE: November 19, 2024 TIME: 12:21 PM Normal [facility] CBC W Auto Differential pane l (Bld)on 11-19-2024 Basophils (Bld) [#/Vol] 0.05 10*3/uL Normal <0.11 [facility] Comment on above: Order Comment: Speci men Type: BLOOD SPECIMEN Ordering Facility: [facility] Address: [address] [place] [address] Performed By: #### 5 7021-8 #### [facility] CLIA [id number] [address] [place] [address] [place] Basophils/100 WBC (Bld) 1.4 % Normal [facility] Comment on above: Order Comment: Speci men Type: BLOOD SPECIMEN Ordering Facility: [facility] Address: [address] [place] [address] Performed By: #### 5 7021-8 #### [facility] CLIA [id number] [address] [place] [address] [place] Differential cell count method Nom (Bld) Auto Normal [facility] Comment on above: Order Comment: Speci men Type: BLOOD SPECIMEN Ordering Facility: [facility] Address: [address] [place] [address] Performed By: #### 5 7021-8 #### [facility] CLIA [id number] [address] [place] [address] [place] Eosinophils (Bld) [#/Vol] 0.05 10*3/uL Normal <0.46 [facility] Comment on above: Order Comment: Speci men Type: BLOOD SPECIMEN Ordering Facility: [facility] Address: [address] [place] [address] Performed By: #### 5 7021-8 #### [facility] CLIA [id number] [address] [place] [address] [place] Eosinophils/100 WBC (Bld) 1.4 % Normal [facility] Comment on above: Order Comment: Speci men Type: BLOOD SPECIMEN Ordering Facility: [facility] Address: [address] [place] [address] Performed By: #### 5 7021-8 #### [facility] CLIA [id number] [address] [place] [address] [place] Erythrocyte distribution width (RBC) [Ratio] 12.6 % Normal 11.5-15.0 [facility] Comment on above: Order Comment: Speci men Type: BLOOD SPECIMEN Ordering Facility: [facility] Address: [address] [place] [address] Performed By: #### 5 7021-8 #### [facility] CLIA [id number] [address] [place] [address] [place] Hematocrit (Bld) [Volume fraction] 35.9 % Low 36.0-46.0 [facility] Comment on above: Order Comment: Speci men Type: BLOOD SPECIMEN Ordering Facility: [facility] Address: [address] [place] [address] Performed By: #### 5 7021-8 #### [facility] CLIA [id number] [address] [place] [address] [place] Hemoglobin (Bld) [Mass/Vol] 12.0 g/dL Normal 11.5-15.5 [facility] Comment on above: Order Comment: Speci men Type: BLOOD SPECIMEN Ordering Facility: [facility] Address: [address] [place] [address] Performed By: #### 5 7021-8 #### [facility] CLIA [id number] [address] [place] [address] [place] Immature granulocytes (Bld) [#/Vol] 10*3/uL Normal <0.10 [facility] Comment on above: Order Comment: Speci men Type: BLOOD SPECIMEN Ordering Facility: [facility] Address: [address] [place] [address] Performed By: #### 5 7021-8 #### [facility] CLIA [id number] [address] [place] [address] [place] Immature granulocytes/100 WBC (Bld) 0.3 % Normal [facility] Comment on above: Order Comment: Speci men Type: BLOOD SPECIMEN Ordering Facility: [facility] Address: [address] [place] [address] Performed By: #### 5 7021-8 #### [facility] CLIA [id number] [address] [place] [address] [place] Lymphocytes (Bld) [#/Vol] 1.50 10*3/uL Normal 1.00-4.00 [facility] Comment on above: Order Comment: Speci men Type: BLOOD SPECIMEN Ordering Facility: [facility] Address: [address] [place] [address] Performed By: #### 5 7021-8 #### [facility] CLIA [id number] [address] [place] [address] [place] Lymphocytes/100 WBC (Bld) 42.0 % Normal [facility] Comment on above: Order Comment: Speci men Type: BLOOD SPECIMEN Ordering Facility: [facility] Address: [address] [place] [address] Performed By: #### 5 7021-8 #### [facility] CLIA [id number] [address] [place] [address] [place] MCH (RBC) [Entitic mass] 32.0 pg Normal 26.0-34.0 [facility] Comment on above: Order Comment: Speci men Type: BLOOD SPECIMEN Ordering Facility: [facility] Address: [address] [place] [address] Performed By: #### 5 7021-8 #### [facility] CLIA [id number] [address] [place] [address] [place] MCHC (RBC) [Mass/Vol] 33.4 g/dL Normal 30.5-36.0 [facility] Comment on above: Order Comment: Speci men Type: BLOOD SPECIMEN Ordering Facility: [facility] Address: [address] [place] [address] Performed By: #### 5 7021-8 #### [facility] CLIA [id number] [address] [place] [address] [place] MCV (RBC) [Entitic vol] 95.7 fL Normal 80.0-100.0 [facility] Comment on above: Order Comment: Speci men Type: BLOOD SPECIMEN Ordering Facility: [facility] Address: [address] [place] [address] Performed By: #### 5 7021-8 #### [facility] CLIA [id number] [address] [place] [address] [place] Monocytes (Bld) [#/Vol] 0.34 10*3/uL Normal <0.87 [facility] Comment on above: Order Comment: Speci men Type: BLOOD SPECIMEN Ordering Facility: [facility] Address: [address] [place] [address] Performed By: #### 5 7021-8 #### [facility] CLIA [id number] [address] [place] [address] [place] Monocytes/100 WBC (Bld) 9.5 % Normal [facility] Comment on above: Order Comment: Speci men Type: BLOOD SPECIMEN Ordering Facility: [facility] Address: [address] [place] [address] Performed By: #### 5 7021-8 #### [facility] CLIA [id number] [address] [place] [address] [place] Neutrophils (Bld) [#/Vol] 1.62 10*3/uL Normal 1.45-7.50 [facility] Comment on above: Order Comment: Speci men Type: BLOOD SPECIMEN Ordering Facility: [facility] Address: [address] [place] [address] Performed By: #### 5 7021-8 #### [facility] CLIA [id number] [address] [place] [address] [place] Neutrophils/100 WBC (Bld) 45.4 % Normal [facility] Comment on above: Order Comment: Speci men Type: BLOOD SPECIMEN Ordering Facility: [facility] Address: [address] [place] [address] Performed By: #### 5 7021-8 #### [facility] CLIA [id number] [address] [place] [address] [place] Nucleated RBC (Bld) [#/Vol] 10*3/uL Normal <0.01 [facility] Comment on above: Order Comment: Speci men Type: BLOOD SPECIMEN Ordering Facility: [facility] Address: [address] [place] [address] Performed By: #### 5 7021-8 #### [facility] CLIA [id number] [address] [place] [address] [place] Nucleated RBC/100 WBC (Bld) [Ratio] 0.0 /100 WBC Normal [facility] Comment on above: Order Comment: Speci men Type: BLOOD SPECIMEN Ordering Facility: [facility] Address: [address] [place] [address] Performed By: #### 5 7021-8 #### [facility] CLIA [id number] [address] [place] [address] [place] Platelet mean volume (Bld) [Entitic vol] 10.2 fL Normal 9.0-12.7 [facility] Comment on above: Order Comment: Speci men Type: BLOOD SPECIMEN Ordering Facility: [facility] Address: [address] [place] [address] Performed By: #### 5 7021-8 #### [facility] CLIA [id number] [place] [address] [place] Platelets (Bld) [#/Vol] 255 10*3/uL Normal 150-400 [facility] Comment on above: Order Comment: Speci men Type: BLOOD SPECIMEN Ordering Facility: [facility] Address: [address] [place] [address] Performed By: #### 5 7021-8 #### [facility] CLIA [id number] [address] [place] [address] [place] RBC (Bld) [#/Vol] 3.75 10*6/uL Low 3.90-5.20 [facility] Comment on above: Order Comment: Speci men Type: BLOOD SPECIMEN Ordering Facility: [facility] Address: [address] [place] [address] Performed By: #### 5 7021-8 #### [facility] CLIA [id number] [address] [place] [address] [place] WBC (Bld) [#/Vol] 3.57 10*3/uL Low 3.70-11.00 [facility] Comment on above: Order Comment: Speci men Type: BLOOD SPECIMEN Ordering Facility: [facility] Address: [address] [place] [address] Performed By: #### 5 7021-8 #### [facility] CLIA [id number] [address] [place] [address] [place] BIOPSY BONE MARROW (HEMO) on 11-19-2024 CT BIOPSY BONE MARROW (HEMO) * * *Final Report* * * DATE OF EXAM: Nov 19 2024 12:15PM [facility] 2037 - CT BIOPSY BONE MARROW (HEMO) / PROCEDURE REASON: Persistent neutropenia. R/o LGL leukemia * * * * Physician Interpretation * * * * PROCEDURE: IMAGE GUIDED BONE MARROW BIOPSY AND ASPIRATION Procedural Personnel Attending physician(s): Ally Menendez M.D. Fellow physician(s): None Resident physician(s): None Advanced practice provider(s): None Medical Student(s): None Pre-procedure diagnosis: Neutropenia Post-procedure diagnosis: Same Indication: Histopathologic diagnosis and molecular characterization Previous biopsy of same target (QCDR): No Additional clinical history: None PROCEDURE SUMMARY: - Percutaneous CT guided core needle biopsy and aspiration - Additional procedure(s): Marrow aspiration PROCEDURE DETAILS: Pre-procedure Consent: Consent obtained with the patient as documented. Medication reconciliation: Done Nallely-procedure discussion: The appropriate elements of the pre-procedure discussion, safety check list and sign-out were performed. Time out was completed before start of procedure. Preparation: The site was prepared and draped using maximal sterile barrier technique including cutaneous antisepsis. Contrast: Contrast agent: Contrast volume (mL): Image Guidance: Sonographic guidance with digital image storage Radiation/Dose: CT Radiation dose: Integrated Dose-length product (DLP) for this visit = 135 mGy*cm. CT Dose Reduction Employed: Automated exposure control (AEC) Anesthesia/Sedation: Level of anesthesia/sedation: Moderate sedation (conscious sedation) Anesthesia/sedation administered by: Independent trained observer under attending supervision with continuous monitoring of the patient?s level of consciousness and physiologic status Total intra-service sedation time (minutes): 13 Local anesthesia: 2 % lidocaine Antibiotics and meds: None Antibiotic infusion start time: N/A Prophylactic antibiotic administered: Within 1 hour of procedure start time or 2 hours for vancomycin or fluoroquinolones Additional med: None Additional med: None Start of procedure: 12:03 End of procedure: 12:08 TECHNIQUE Patient position: Prone Imaging prior to biopsy Initial imaging was performed. Biopsy target: LEFT iliac bone Biopsy Local anesthesia was administered. Under CT guidance, the biopsy needle was advanced into the iliac bone and biopsy was performed. Core needle biopsy device: Arrow Core needle size: 11 Gauge Number of core specimens: 1 Aspiration device: 11 Gauge Number of specimens: 2 cc x1, 4 cc x6 On-site biopsy touch preparation: Yes Additional sampling recommendations: None Preliminary assessment of sample adequacy: Adequate Needle removal The biopsy needle was removed and a sterile dressing was applied. Tract embolization: None Imaging following biopsy Immediate post-biopsy imaging was performed. Post-biopsy imaging findings: No hematoma Additional Details Specimens removed: Biopsy samples as detailed above Estimated blood loss (mL): 1150 Standardized report: [id number] COMPLICATIONS: No immediate complications CONCLUSION: The patient was comfortable and was transferred to the PACU in stable condition. The procedure was performed by the: attending radiologist, without an ward assistant. The attending radiologist performed the following procedural activities: Entire procedure IMPRESSION: Image-guided biopsy and marrow aspiration of LEFT iliac bone. Plan: Specimen(s) sent for evaluation. ATTESTATION: Signer name: Ally Menendez I attest that I was present for the entire procedure. I reviewed the stored images and agree with the report as written. Tent Finisher: Radionomy Transcribe Date/Time: Nov 19 2024 12:23P Dictated by : ALLY MENENDEZ MD This examination was interpreted and the report reviewed and electronically signed by: ALLY MENENDEZ MD on Nov 19 2024 12:25PM EST [id number] [facility] DNA EXTRACTION BONE MARROW ( BUFFY COAT)on 11-19-2024 DNA EXTRACTION BONE MARROW (BUFFY COAT) [facility] Comment on above: Order Comment: Segundo ferrara Type: BONE MARROW SPECIMEN Ordering Facility: [facility] Address: [address] [place] [address] Result Comment: This specimen was received and successfully processed for future DNA purification should molecular testing be needed. Specimens will be available for 3 years from date of collection. To order testing on this specimen for [facility] patients, please place an [facility] order for DNA and RNA Clinical Testing ([id number]). To order testing for patients outside of the [facility] system, please request DNA and RNA for Clinical Testing, order code [id number]. If additional paperwork is required for testing, please send completed forms via secure email to . Performed By: #### N UCBUF #### [facility] CLIA [id number] [address] [place] [address] [place] FLOW CYTOMETRY FOR LEUKEMIA/ LYMPHOMA (FCLL) PERFORMABLEon 11-19-2024 FLOW CYTOMETRY ORDER STATUS Results will be reported under F case ID when completed [facility] Comment on above: Order Comment: Segundo ferrara Type: BONE MARROW SPECIMEN Ordering Facility: [facility] Address: [address] [place], [place] [id number] Performed By: #### F CLLP #### [facility] CLIA [id number] [address] [place] [address] [place] FLOW CYTOMETRY FOR LEUKEMIA/ LYMPHOMA (FCLL) REFLEXon 11-19-2024 DIAGNOSIS COMMENT Normal [facility] Comment on above: Order Comment: Speci men Type: BONE MARROW SPECIMEN Ordering Facility: [facility] Address: [address] [place] [address] Result Comment: This assay is not designed to detect minimal residual disease, plasma cell neoplasms, or myeloid antigen maturational patterns. This test was developed and its performance characteristics determined by [facility]'s [facility] [place] ([facility] It has not been cleared or approved by the FDA. -[facility] is regulated under CLIA as qualified to perform high-complexity testing. This test is used for clinical purposes. It should not be regarded as investigational or for research. Performed By: #### F CLLRFLX #### [facility] CLIA [id number] [address] [place] [address] [place] [facility] Result Comment: The patient is a 69-year-old female with history of GERD, depression, and osteoporosis, being evaluated for neutropenia. Morphologic review demonstrates a normocellular bone marrow (approximately 20-30%) showing maturing trilineage hematopoiesis with no overt morphologic evidence of dysplasia or increased blasts. Flow cytometric immunophenotypic studies do not show evidence of a lymphoproliferative disorder or increased CD34 positive blasts ([id number]). Correlation with the clinical findings and the results of the pending molecular and cytogenetic studies is recommended. Performed By: #### B MRT #### [facility] CLIA [id number] [address] [place] [address] [place] FINAL PERFORMING LAB [facility] Comment on above: Order Comment: Speci men Type: BONE MARROW SPECIMEN Ordering Facility: [facility] Address: [address] [place] [address] Result Comment: Diag nostic interpretation performed at [facility], [address] [place] [address] CLIA# [id number] Burring Wheel Operator: Orlando Huerta M.D. Performed By: #### F CLLRFLX #### [facility] CLIA [id number] [address] [place] [address] [place] Result Comment: Diag nostic interpretation performed at: [facility], [address] [place] [address] CLIA# [id number] Burring Wheel Operator: Orlando Huerta MD Performed By: #### B MRT #### [facility] CLIA [id number] [address] [place] [address] [place] FLOW CYTOMETRY RESULTS [facility] Comment on above: Order Comment: Speci men Type: BONE MARROW SPECIMEN Ordering Facility: [facility] Address: [address] [place] [address] Result Comment: Spec imen type: Bone marrow aspirate Morphology comments: See associated bone marrow pathology report [id number]. Viability: 99% Flow Cytometry Bone Marrow Immunophenotyping Marker Normal Cell Type Result (Lymphocytes) CD3 T-cells Normal Pattern CD4 T-cell subset Normal Pattern CD5 T-cells Normal Pattern CD7 T/NK-cells Normal Pattern CD8 T-cell subset Normal Pattern CD13 Myeloid Normal Pattern CD16/56 NK cells Normal Pattern CD19 B-cells Normal Pattern CD34 Blasts Normal Pattern CD45 Bartlett-leukocyte Normal Pattern kappa/lambda B-cells Normal Pattern Flow cytometric analysis of the bone marrow aspirate reveals that 37% of total events have the CD45 and light scatter properties of lymphocytes. The lymphocytes are composed of T-cells (59%, CD4:CD8 ratio = 1.91), NK cells (20%), and polytypic B-cells (18%). Granulocytic elements are 47% of events. Blasts are not increased. SB/MXM 11/20/24 Performed By: #### F CLLRFLX #### [facility] CLIA [id number] [address] [place] [address] [place] GROSS DESCRIPTION A. Bone Marrow Normal [facility] Comment on above: Order Comment: Speci men Type: BONE MARROW SPECIMEN Ordering Facility: [facility] Address: [address] [place] [address] Result Comment: Rece ived 4 mL of bone marrow in heparin. Performed By: #### F CLLRFLX #### [facility] CLIA [id number] [address] [place] [address] [place] INTERPRETATION Normal [facility] Comment on above: Order Comment: Segundo ferrara Type: BONE MARROW SPECIMEN Ordering Facility: [facility] Address: [address] [place] [address] Result Comment: Ther e is no immunophenotypic evidence of involvement by a lymphoproliferative disorder or abnormal blast population. Correlation with the clinical and bone marrow histopathologic findings is suggested. November 23, 2024 at 1526 EST Performed By: #### F CLLRFLX #### [facility] CLIA [id number] [address] [place] [address] [place] FLT3 ITD HN BONE MARROWon [facility] PATHOLOGIST [id number] [facility] Comment on above: Order Comment: Segundo ferrara Type: BONE MARROW SPECIMEN Ordering Facility: [facility] Address: [address] [place] [address] Performed By: #### F 3IM, HDMNGS #### [facility] CLIA [id number] [address] [place] [address] [place] FLT3 ITD HN PANEL BONE MARROW [facility] Comment on above: Order Comment: Segundo ferrara Type: BONE MARROW SPECIMEN Ordering Facility: [facility] Address: [address] [place] [address] Result Comment: FLT3 Internal Tandem Duplication (ITD) Mutation Testing Laboratory Accession Number: [id number] FLT3 Internal Tandem Duplication (ITD) mutation: Not Detected Comment: FLT3/ITD is found in approx. 20-30% of adult patients and in approx. 5-12% of infants and children with acute myeloid leukemia (AML). FLT3/ITD are most often associated with a normal karyotype, t(15;17), and t(6;9). FLT3/ITD is associated with leukocytosis and a poor prognosis in both children and adults. In cytogenetically normal AML, FLT3/ITD has been associated with a poor prognosis. FLT3 mutation status has been reported to change between diagnosis and relapse; this may relate to the instability of FLT3 mutations. Methodology: DNA is isolated from the specimen provided. Regions of the FLT3 tyrosine kinase receptor gene are subjected to the polymerase chain reaction (PCR) using fluorescently labeled forward PCR primers. PCR products are analyzed by capillary gel electrophoresis for in-frame length mutations (ITD mutations). This assay can detect ITD mutant alleles which represent approx. 5-10% of the total alleles. The ITD ratio is calculated as the area under the curve of the ITD signal to the area under the curve of the wild type signal. Limitations: Due to the diversity of potential ITD mutations, standardized calibration material is not available and calculated ITD peak ratios may therefore not be directly comparable across laboratories. As PCR efficiency varies with the size of the insertion mutation, calculated peak ratios may not necessarily correlate with percentage of mutant alleles. ITD ratio information should be interpreted with caution, in conjunction with other cytogenetic and molecular findings to assess prognosis within myeloid neoplasms. References: 1) Librado MP, Braulio P, Tiacci E, et al. Mutational landscape of AML with normal cytogenetics: biological and clinical implications. Blood Rev.2013;27:13-22. 2) John MIREYA, Shefali M, Anirudh ME, et al. Prognostic relevance of integrated genetic profiling in acute myeloid leukemia. N Engl J Med. 2011Dec 19;366 (12):1079-89. 3) Peaceer H, Nora E, Bandar D, et al. Diagnosis and mangement of AML in adults: 2017 ELN recommendations from an international expert panel. Blood 129,[phone] (2017). Disclaimer: This test was developed and its performance characteristics determined by [facility]'s Pathology and Laboratory Medicine Department. It has not been cleared or approved by the FDA. [facility]'s Pathology and Laboratory Medicine Department is regulated under CLIA as certified to perform high-complexity testing. This test is used for clinical purposes. It should not be regarded as investigational or for research. Testing and interpretation performed at [facility], [address] [place] [id number]. CLIA Number: [id number] As reviewed by Lacie Patino, PhD, HCLD Performed By: #### F 3IM, [facility] #### [facility] [place] [id number] [address] [place] [address] [place] [facility] HISTORY PHYSICALon HISTORY PHYSICAL HNO ID: [id number] Author: ALLY MENENDEZ MD Service: Radiology Author Type: Physician Type: H&P Filed: 11/19/2024 11:33 Note Text: RADIOLOGY PROCEDURAL SEDATION HISTORY AND PHYSICAL EXAM SERVICE DATE: 11/19/2024 SERVICE TIME: 11:32 AM Subjective HPI: This is a 69 year old female who presents with NEUTROPENIA PROCEDURE SCHEDULED: Procedure(s) with comments: DIAGNOSTIC BONE MARROW BIOPSY(IES) (Pending) - Needs antiemetic, has Hx of vomiting after sedation RADIOLOGY ORDER PLACED: Radiology (1440h ago, onward) Start Ordered 10/28/24 0000 IMAGING GUIDED BIOPSY BONE MARROW (HEMATOLOGY) Routine Comments: Persistent neutropenia. R/o LGL leukemia Ordered T cell receptor gene rearrangement blood test separately. 10/28/24 1501 PAST ANESTHESIA HISTORY: No history of adverse event and Nausea and/or vomiting PAST MEDICAL HISTORY Diagnosis Date Depression GERD (gastroesophageal reflux disease) Hiatal hernia Hypercholesterolemia Leukopenia PAST SURGICAL HISTORY Procedure Laterality Date PAST SURGICAL HISTORY OF EGD PAST SURGICAL HISTORY OF Tooth Post Prior to Admission medications as of 11/19/24 1105 Medication Sig Last Dose Taking omeprazole (PRILOSEC) 40 mg capsule Take 40 mg by mouth once daily. 11/19/2024 Yes vit C/E/Zn/coppr/lutein/zeaxan (PRESERVISION AREDS-2 ORAL) Take by mouth once daily. calcium carbonate/vitamin D3 (CALCIUM WITH VITAMIN D3 ORAL) Take by mouth once daily. ZINC ORAL Take by mouth once daily. esomeprazole (NEXIUM) 40 mg capsule Take 40 mg by mouth once daily. sertraline (ZOLOFT) 25 mg tablet Take 25 mg by mouth every morning. 11/19/2024 Yes oxybutynin ER (DITROPAN XL) 10 mg 24 hr tablet TAKE 1 TABLET BY MOUTH ONCE DAILY DO NOT CRUSH CHEW OR SPLIT fexofenadine-pseudoephedrine (ALVA D) 60-120 mg per tablet Take 1 tablet by mouth once daily. ALLERGIES Allergen Reactions Ibuprofen Hives, Other: See Comments Also experiences sores in mouth after taking Ibuprofen Other Reaction(s): hives and sores, other Also experiences sores in mouth after taking Ibuprofen Other Reaction(s): other Also experiences sores in mouth after taking Ibuprofen Other Reaction(s): hives and sores, other Also experiences sores in mouth after taking Ibuprofen Other Reaction(s): other Morphine GI Upset, Other: See Comments, Vomiting Other Reaction(s): other, Unknown, Vomiting Other Reaction(s): Vomiting Other Reaction(s): other, Unknown, Vomiting Other Reaction(s): Vomiting Objective PHYSICAL EXAM: The remainder of the physical exam is noncontributory. GENERAL: Alert, no distress, cooperative AIRWAY: Airway Visualization of Uvula: Yes Mouth opening greater than 2 fingerbreadths: Yes Neck Full Range of Motion: Yes LUNGS: Lungs clear to auscultation, Good diaphragmatic excursion CARDIAC: Normal S1 and S2; no rubs, murmurs, or gallops Assessment/Plan ASA Class: ASA Class: Patient with severe systemic disease Provisional Diagnosis/Treatment Plan: CT GUIDED BONE MARROW ASPIRATION AND BIOPSY Sedation Goal: Moderate SIGNATURE: Ally Menendez MD PATIENT NAME: Stephanie Larson DATE: November 19, 2024 TIME: 11:32 AM [facility] NURSING PROGon 11-19-2024 NURSING PROG HNO ID: [id number] Author: MARTHA SOTOMAYOR RN Service: Radiology Author Type: Registered Nurse Type: Nursing Progress Note Filed: 11/19/2024 11:08 Note Text: PATIENT EDUCATION TOPIC: PROCEDURE / SURGERY: Procedure/Surgery: Bone marrow biopsy PATIENT NAME: Stephanie Larson PATIENT LOCATION: INTERVENTIONAL RADIOL* READINESS TO LEARN COGNITIVE ABILITY: Alert and oriented MOTIVATION TO LEARN: Interested FAMILY SUPPORT: Moderate - Family present but overwhelmed INSTRUCTION PROVIDED TO: Patient PATIENT LEARNS BEST BY: Written Instruction - Hand-outs Verbal Instruction FACTORS AFFECTING LEARNING: None PHYSICAL LIMITATIONS AFFECTING LEARNING: None LEARNING RESPONSE DIAGNOSIS: ADULT: Neutropenia PATIENT/FAMILY RESPONSE: Verbalizes understanding of: POST-PROCEDURE INSTRUCTIONS-Correct actions to take to reduce post procedure complications PRE-PROCEDURE INSTRUCTIONS-Correct action to take to follow pre-procedure instructions METHOD OF INSTRUCTION: Written instruction/Handouts Verbal instruction FOLLOW-UP PLAN: Complete - No need for follow-up INSTRUCTIONAL AIDS USED: NA SUPPLEMENTAL MATERIAL PROVIDED TO PATIENT: None REFERRAL (RECOMMENDATION): None Electronically Signed By: Martha Sotomayor [facility] T-CELL RECEPTOR GENE (TCR-G) BONE MARROWon 11-19-2024 T-CELL RECPTOR GENE (TCR-G) MARROW [facility] Comment on above: Order Comment: Speci men Type: BONE MARROW SPECIMEN Ordering Facility: [facility] Address: [address] [place] [address] Result Comment: T-Ce ll Receptor Gamma Clonality Laboratory Accession Number: [id number] Sample Description: N/A Sample Type: Bone Marrow Aspirate DNA Quality: GOOD (>=300 bp) Results: TCRG D: Non-clonal Interpretation: NEGATIVE: A clonal rearrangement is not detected by PCR using primers targeting the T-cell receptor gamma chain locus. A negative result does not completely exclude the possibility of a monoclonal T-cell population. If clinically indicated and not previously performed, additional studies for a T-cell receptor beta chain rearrangement may be helpful in further evaluation for a monoclonal T-cell population. Methodology: DNA is isolated from the specimen provided and subjected to PCR amplification using a fluorescently labeled primers targeting the T-cell receptor gamma chain locus (Phase [employer], [place], [place]). Fluorescently labeled PCR products were analyzed by capillary gel electrophoresis. An additional PCR reaction directed at housekeeping genes was performed as a control for each sample to ensure adequate DNA quality. Limitations: 1) PCR may not detect all clonal rearrangements detectable by Southern blot analysis. 2) The sensitivity of the assay is affected by the intensity of the polyclonal background. The assay detects a clonal population of approximately 5% in a background of tonsil DNA. 3) Monoclonality is not equivalent to malignancy. Therefore, results of this test must always be interpreted in the context of the clinical, histological, flow cytometric, and/or immunophenotypic information. 4) Detection of monoclonality with this assay usually indicates a monoclonal T-cell population; however, lineage assignment is not entirely reliable since some B-cell lymphomas and acute myeloid leukemias may demonstrate clonal TCRB genes. Disclaimer: This test was developed and its performance characteristics determined by [facility]'s Pathology and Laboratory Medicine Department. It has not been cleared or approved by the FDA. [facility]'s Pathology and Laboratory Medicine Department is regulated under CLIA as certified to perform high-complexity testing. This test is used for clinical purposes. It should not be regarded as investigational or for research. Testing and interpretation performed at [facility], [address] [place] [address]. CLIA Number: [id number] As reviewed by Ya Quezada MD Performed By: #### T CR #### [facility] CLIA [id number] [address] [place], [place] [address] [address] [place] CBC W Auto Differential pane l (Bld)on 10-28-2024 Basophils (Bld) [#/Vol] 0.03 10*3/uL [facility] Basophils/100 WBC (Bld) 1.0 % [facility] Differential cell count method Nom (Bld) Auto [facility] Eosinophils (Bld) [#/Vol] 0.03 10*3/uL [facility] Eosinophils/100 WBC (Bld) 1.0 % [facility] Erythrocyte distribution width (RBC) [Ratio] 12.3 % 11.5 - 15.0 % [facility] Hematocrit (Bld) [Volume fraction] 36.6 % 36.0 - 46.0 % [facility] Hemoglobin (Bld) [Mass/Vol] 12.3 g/dL 11.5 - 15.5 g/dL [facility] Immature granulocytes (Bld) [#/Vol] [facility] Immature granulocytes/100 WBC (Bld) 0.3 % [facility] Interpretation and review of laboratory results Abnormal [facility] Lymphocytes (Bld) [#/Vol] 1.80 10*3/uL [facility] Lymphocytes/100 WBC (Bld) 58.6 % [facility] MCH (RBC) [Entitic mass] 32.7 pg 26.0 - 34.0 pg [facility] MCHC (RBC) [Mass/Vol] 33.6 g/dL 30.5 - 36.0 g/dL [facility] MCV (RBC) [Entitic vol] 97.3 fL 80.0 - 100.0 fL [facility] Monocytes (Bld) [#/Vol] 0.32 10*3/uL [facility] Monocytes/100 WBC (Bld) 10.4 % [facility] Neutrophils (Bld) [#/Vol] 0.88 10*3/uL Low [facility] Neutrophils/100 WBC (Bld) 28.7 % [facility] Nucleated RBC (Bld) [#/Vol] NINF [facility] Nucleated RBC/100 WBC (Bld) [Ratio] 0.0 % /100 WBC [facility] Platelet mean volume (Bld) [Entitic vol] 9.1 fL 9.0 - 12.7 fL [facility] Platelets (Bld) [#/Vol] 229 10*3/uL [facility] RBC (Bld) [#/Vol] 3.76 10*6/uL Low 3.90 - 5.2 0 m/uL [facility] WBC (Bld) [#/Vol] 3.07 10*3/uL Low [facility] Basophils (Bld) [#/Vol] 0.03 10*3/uL Normal <0.11 [facility] Comment on above: Order Comment: Speci men Type: BLOOD SPECIMEN Ordering Facility: [facility] Address: [address] [place] [address] Performed By: #### Lissette BEYER, 5763-8 #### [facility] CLIA [id number] [address] [place] [address] [place] Basophils/100 WBC (Bld) 1.0 % Normal [facility] Comment on above: Order Comment: Speci men Type: BLOOD SPECIMEN Ordering Facility: [facility] Address: [address] [place] [address] Performed By: #### Lissette OPPER, 5763-8 #### [facility] CLIA [id number] [address] [place] [address] [place] Differential cell count method Nom (Bld) Auto Normal [facility] Comment on above: Order Comment: Speci men Type: BLOOD SPECIMEN Ordering Facility: [facility] Address: [address] [place] [address] Performed By: #### Lissette BEYER, 5763-8 #### [facility] CLIA [id number] [address] [place] [address] [place] Eosinophils (Bld) [#/Vol] 0.03 10*3/uL Normal <0.46 [facility] Comment on above: Order Comment: Speci men Type: BLOOD SPECIMEN Ordering Facility: [facility] Address: [address] [place] [address] Performed By: #### Lissette BEYER, 5763-8 #### [facility] CLIA [id number] [address] [place] [address] [place] Eosinophils/100 WBC (Bld) 1.0 % Normal [facility] Comment on above: Order Comment: Speci men Type: BLOOD SPECIMEN Ordering Facility: [facility] Address: [address] [place] [address] Performed By: #### Lissette BEYER, 5763-8 #### [facility] CLIA [id number] [address] [place] [address] [place] Erythrocyte distribution width (RBC) [Ratio] 12.3 % Normal 11.5-15.0 [facility] Comment on above: Order Comment: Speci men Type: BLOOD SPECIMEN Ordering Facility: [facility] Address: [address] [place] [address] Performed By: #### Lissette BEYER, 5763-8 #### [facility] CLIA [id number] [address] [place] [address] [place] Hematocrit (Bld) [Volume fraction] 36.6 % Normal 36.0-46.0 [facility] Comment on above: Order Comment: Speci men Type: BLOOD SPECIMEN Ordering Facility: [facility] Address: [address] [place] [address] Performed By: #### Lissette BEYER, 5763-8 #### [facility] CLIA [id number] [address] [place] [address] [place] Hemoglobin (Bld) [Mass/Vol] 12.3 g/dL Normal 11.5-15.5 [facility] Comment on above: Order Comment: Speci men Type: BLOOD SPECIMEN Ordering Facility: [facility] Address: [address] [place] [address] Performed By: #### Lissette OPPER, 5763-8 #### [facility] CLIA [id number] [address] [place] [address] [place] Immature granulocytes (Bld) [#/Vol] 10*3/uL Normal <0.10 [facility] Comment on above: Order Comment: Speci men Type: BLOOD SPECIMEN Ordering Facility: [facility] Address: [address] [place] [address] Performed By: #### Lissette OPPER, 5763-8 #### [facility] CLIA [id number] [address] [place] [address] [place] Immature granulocytes/100 WBC (Bld) 0.3 % Normal [facility] Comment on above: Order Comment: Speci men Type: BLOOD SPECIMEN Ordering Facility: [facility] Address: [address] [place] [address] Performed By: #### Lissette BEYER, 5763-8 #### [facility] CLIA [id number] [address] [place] [address] [place] Lymphocytes (Bld) [#/Vol] 1.80 10*3/uL Normal 1.00-4.00 [facility] Comment on above: Order Comment: Speci men Type: BLOOD SPECIMEN Ordering Facility: [facility] Address: [address] [place] [address] Performed By: #### Lissette OPPER, 5763-8 #### [facility] CLIA [id number] [address] [place] [address] [place] Lymphocytes/100 WBC (Bld) 58.6 % Normal [facility] Comment on above: Order Comment: Speci men Type: BLOOD SPECIMEN Ordering Facility: [facility] Address: [address] [place] [address] Performed By: #### Lissette BEYER, 5763-8 #### [facility] CLIA [id number] [address] [place] [address] [place] MCH (RBC) [Entitic mass] 32.7 pg Normal 26.0-34.0 [facility] Comment on above: Order Comment: Speci men Type: BLOOD SPECIMEN Ordering Facility: [facility] Address: [address] [place] [address] Performed By: #### Lissette BEYER, 5763-8 #### [facility] CLIA [id number] [address] [place] [address] [place] MCHC (RBC) [Mass/Vol] 33.6 g/dL Normal 30.5-36.0 [facility] Comment on above: Order Comment: Speci men Type: BLOOD SPECIMEN Ordering Facility: [facility] Address: [address] [place] [address] Performed By: #### Lissette BEYER, 5763-8 #### [facility] CLIA [id number] [address] [place] [address] [place] MCV (RBC) [Entitic vol] 97.3 fL Normal 80.0-100.0 [facility] Comment on above: Order Comment: Speci men Type: BLOOD SPECIMEN Ordering Facility: [facility] Address: [address] [place] [address] Performed By: #### Lissette BEYER, 5763-8 #### [facility] CLIA [id number] [address] [place] [address] [place] Monocytes (Bld) [#/Vol] 0.32 10*3/uL Normal <0.87 [facility] Comment on above: Order Comment: Speci men Type: BLOOD SPECIMEN Ordering Facility: [facility] Address: [address] [place] [address] Performed By: #### Lissette BEYER, 5763-8 #### [facility] CLIA [id number] [address] [place] [address] [place] Monocytes/100 WBC (Bld) 10.4 % Normal [facility] Comment on above: Order Comment: Speci men Type: BLOOD SPECIMEN Ordering Facility: [facility] Address: [address] [place] [address] Performed By: #### Lissette BEYER, 5763-8 #### [facility] CLIA [id number] [address] [place] [address] [place] Neutrophils (Bld) [#/Vol] 0.88 10*3/uL Low 1.45-7.50 [facility] Comment on above: Order Comment: Speci men Type: BLOOD SPECIMEN Ordering Facility: [facility] Address: [address] [place] [address] Performed By: #### Lissette BEYER, 5763-8 #### [facility] CLIA [id number] [address] [place] [address] [place] Neutrophils/100 WBC (Bld) 28.7 % Normal [facility] Comment on above: Order Comment: Speci men Type: BLOOD SPECIMEN Ordering Facility: [facility] Address: [address] [place] [address] Performed By: #### Lissette BEYER, 5763-8 #### [facility] CLIA [id number] [address] [place] [address] [place] Nucleated RBC (Bld) [#/Vol] 10*3/uL Normal <0.01 [facility] Comment on above: Order Comment: Speci men Type: BLOOD SPECIMEN Ordering Facility: [facility] Address: [address] [place] [address] Performed By: #### Lissette OPPER, 5763-8 #### [facility] CLIA [id number] [address] [place] [address] [place] Nucleated RBC/100 WBC (Bld) [Ratio] 0.0 /100 WBC Normal [facility] Comment on above: Order Comment: Speci men Type: BLOOD SPECIMEN Ordering Facility: [facility] Address: [address] [place] [address] Performed By: #### Lissette BEYER, 5763-8 #### [facility] CLIA [id number] [address] [place] [address] [place] Platelet mean volume (Bld) [Entitic vol] 9.1 fL Normal 9.0-12.7 [facility] Comment on above: Order Comment: Speci men Type: BLOOD SPECIMEN Ordering Facility: [facility] Address: [address] [place] [address] Performed By: #### Lissette BEYER, 5763-8 #### [facility] CLIA [id number] [address] [place] [address] [place] Platelets (Bld) [#/Vol] 229 10*3/uL Normal 150-400 [facility] Comment on above: Order Comment: Speci men Type: BLOOD SPECIMEN Ordering Facility: [facility] Address: [address] [place] [address] Performed By: #### Lissette BEYER, 5763-8 #### [facility] CLIA [id number] [address] [place] [address] [place] RBC (Bld) [#/Vol] 3.76 10*6/uL Low 3.90-5.20 [facility] Comment on above: Order Comment: Speci men Type: BLOOD SPECIMEN Ordering Facility: [facility] Address: [address] [place] [address] Performed By: #### Lissette BEYER, 5763-8 #### [facility] CLIA [id number] [address] [place] [address] [place] WBC (Bld) [#/Vol] 3.07 10*3/uL Low 3.70-11.00 [facility] Comment on above: Order Comment: Speci men Type: BLOOD SPECIMEN Ordering Facility: [facility] Address: [address] [place] [address] Performed By: #### C PEPITO, 5763-8 #### [facility] CLIA [id number] [address] [place] [address] [place] [address] [place] CNOVSPon 10-28-2024 CNOVSP Visit (SP) Office ([facility]) STEPHANIE LARSON ([id number]) 1955 F Date Time Provider Department 10/28/24 3:00 PM DON VILLANUEVA During your visit today, we recorded the following information about you: Temperature Pulse Respiration Blood pressure 97.2 degrees 55/minute 16/minute 129/61 Weight 52.4 kg Don Villanueva MD 10/28/2024 3:25 PM Signed PATIENT NAME: Stephanie Larson CLINIC NO.: [id number] ATTENDING PHYSICIAN: Don Villanueva MD DATE OF SERVICE: 10/28/[address] Rogers Che MD ([facility]) [facility] [id number] thank you for referring Stephanie Larson for an opinion regarding Leukopenia. Some of the elements of this note have been copied from my previous progress note dated 09/16/24. All the information has been reviewed carefully. CHIEF COMPLAINT: Leukopenia HPI: Stephanie Larson is a 68 year old year old female with GERD, depression referred to us for leukopenia. No smoking Occasionally drinks alcohol DEXA scan showed osteoporosis Uptodate with mammogram. CBC on 08/19/24 showed WBC 2.5 and ANC 1.0 No complaints 10/28/24: - Doing well - No major complaints - Denies infections Current Outpatient Medications Medication Sig omeprazole (PRILOSEC) 40 mg capsule Take 40 mg by mouth once daily. vit C/E/Zn/coppr/lutein/zeaxan (PRESERVISION AREDS-2 ORAL) Take by mouth once daily. calcium carbonate/vitamin D3 (CALCIUM WITH VITAMIN D3 ORAL) Take by mouth once daily. ZINC ORAL Take by mouth once daily. sertraline (ZOLOFT) 25 mg tablet Take 25 mg by mouth every morning. oxybutynin ER (DITROPAN XL) 10 mg 24 hr tablet TAKE 1 TABLET BY MOUTH ONCE DAILY DO NOT CRUSH CHEW OR SPLIT fexofenadine-pseudoephedrine (ALVA D) 60-120 mg per tablet Take 1 tablet by mouth once daily. esomeprazole (NEXIUM) 40 mg capsule Take 40 mg by mouth once daily. No current facility-administered medications for this visit. ALLERGIES Allergen Reactions Ibuprofen Hives, Other: See Comments Also experiences sores in mouth after taking Ibuprofen Other Reaction(s): hives and sores, other Also experiences sores in mouth after taking Ibuprofen Other Reaction(s): other Also experiences sores in mouth after taking Ibuprofen Other Reaction(s): hives and sores, other Also experiences sores in mouth after taking Ibuprofen Other Reaction(s): other Morphine GI Upset, Other: See Comments, Vomiting Other Reaction(s): other, Unknown, Vomiting Other Reaction(s): Vomiting Other Reaction(s): other, Unknown, Vomiting Other Reaction(s): Vomiting PAST MEDICAL HISTORY Diagnosis Date Depression GERD (gastroesophageal reflux disease) Hypercholesterolemia Leukopenia PAST SURGICAL HISTORY Procedure Laterality Date PAST SURGICAL HISTORY OF EGD PAST SURGICAL HISTORY OF Tooth Post FAMILY HISTORY Problem Relation Age of Onset Hypertension Father Diabetes Father Social History Tobacco Use Smoking status: Never Smokeless tobacco: Never Substance Use Topics Alcohol use: Yes Drug use: Never REVIEW OF SYSTEMS GENERAL: No weight loss, malaise or fevers. No night sweats. HEENT: Negative for headaches, No changes in hearing or vision, no nose bleeds or other nasal problems. RESPIRATORY: Negative for cough, wheezing and shortness of breath CARDIOVASCULAR: Negative for chest pain, leg swelling and palpitations GI: Negative for abdominal discomfort, blood in stools or black stools and change in bowel habits : Negative for dysuria, frequency and incontinence MUSCULOSKELETAL: Negative for joint pain or swelling, back pain, and muscle pain. SKIN: Negative for lesions, rash, and itching. HEMATOLOGY/LYMPHOLOGY Negative for prolonged bleeding, bruising easily, and swollen nodes. NEURO: Negative for numbness or tingling of hands/feet. No weakness. PHYSICAL EXAMINATION: BP 129/61 Pulse (!) 55 Temp 36.2 ?C (97.2 ?F) (Temporal) Resp 16 Wt 52.4 kg (115 lb 8.3 oz) SpO2 97% BMI 21.13 kg/m? There were no vitals taken for this visit. No data found for this vital: Wt General appearance:ECOG PERFORMANCE STATUS: 0- Fully active, able to carry on all pre-disease performance w/o restriction. Patient in NAD. Skin: Skin color, texture, turgor normal. No rashes or lesions. Eyes: Anicteric sclera. Pupils are equally round and reactive to light. Extraocular movements are intact. Breast: No palpable breast masses. No nipple change or discharge. Lymph Nodes: No cervical, supraclavicular, axillary or inguinal adenopathy. Oropharynx: Lips, mucosa, and tongue normal. Back: No pain to percussion. Negative SLR test Lungs clear to auscultation, No wheezing or rhonchi Heart: RRR without murmur, gallop, or rubs. Abdomen soft, non-tender. No masses, organomegaly Extremities: No deformities. No edema Neuro: Gait and speech normal. Reflex (more content not included)... Normal [facility] 10-28-2024 [facility] Telephone ([facility]) STEPHANIE LARSON ([id number]) 1955 F Date Time Provider Department 10/28/24 DON VILLANUEVA [facility] During your visit today, we recorded the following information about you: Stiven Nilo 10/28/2024 3:15 PM Signed Kendall Campbell, Referring this patient for BMBX. Patient aware, Can you reach out to her and get her scheduled? Thanks so much! Nilo Saleem Allergies As of Date: 10/28/2024 Noted Allergy Reaction IBUPROFEN 09/17/2014 4 - Hives 14 - Other: See Comments Comments: Also experiences sores in mouth after taking Ibuprofen Other Reaction(s): hives and sores, other Also experiences sores in mouth after taking Ibuprofen Other Reaction(s): other Also experiences sores in mouth after taking Ibuprofen Other Reaction(s): hives and sores, other Also experiences sores in mouth after taking Ibuprofen Other Reaction(s): other MORPHINE 09/17/2014 8 - GI Upset 14 - Other: See Comments 11 - Vomiting Comments: Other Reaction(s): other, Unknown, Vomiting Other Reaction(s): Vomiting Other Reaction(s): other, Unknown, Vomiting Other Reaction(s): Vomiting Date Reviewed: 10/28/2024 Reviewed by: La Nena Lee MA - Fully Assessed Reason for Visit: BMBX [Other] Prescriptions as of 10/30/2024 - omeprazole (PRILOSEC) 40 mg capsule Take 40 mg by mouth once daily. - vit C/E/Zn/coppr/lutein/zeaxan (PRESERVISION AREDS-2 ORAL) Take by mouth once daily. - calcium carbonate/vitamin D3 (CALCIUM WITH VITAMIN D3 ORAL) Take by mouth once daily. - ZINC ORAL Take by mouth once daily. - esomeprazole (NEXIUM) 40 mg capsule Take 40 mg by mouth once daily. - sertraline (ZOLOFT) 25 mg tablet Take 25 mg by mouth every morning. - oxybutynin ER (DITROPAN XL) 10 mg 24 hr tablet TAKE 1 TABLET BY MOUTH ONCE DAILY DO NOT CRUSH CHEW OR SPLIT - fexofenadine-pseudoephedrine (ALVA D) 60-120 mg per tablet Take 1 tablet by mouth once daily. Problem List As Of Date: 10/28/2024 (None) Encounter Status:Closed by NILO SALEEM on 10/30/24 Normal [facility] metabolic 2000 panelOrdered By: Abhishek Grossman on 10-28-2024 Albumin [Mass/Vol] 4.5 g/dL 3.9 - 4.9 g/dL [facility] ALP [Catalytic activity/Vol] 85 U/L 34 - 123 U/L [facility] ALT [Catalytic activity/Vol] 13 U/L 7 - 38 U/L [facility] Anion gap [Moles/Vol] 11 mmol/L 8 - 15 mmol/L [facility] AST [Catalytic activity/Vol] 22 U/L 13 - 35 U/L [facility] Bilirubin [Mass/Vol] 0.3 mg/dL 0.2 - 1.3 mg/dL [facility] Calcium [Mass/Vol] 9.5 mg/dL 8.5 - 10.2 mg/dL [facility] Chloride [Moles/Vol] 101 mmol/L 98 - 107 mmol/L [facility] CO2 [Moles/Vol] 28 mmol/L 22 - 30 mmol/L [facility] Creatinine [Mass/Vol] 0.74 mg/dL 0.58 - 0.96 mg/dL [facility] GFR/1.73 sq M.predicted among non-blacks MDRD (S/P/Bld) [Vol rate/Area] 87 mL/min/{1.73_m2} - PINF [facility] Comment on above: Estimated Glomerular Filtration Rate (eGFR) is calculated using the 2020 CKD-EPI creatinine equation. This equation utilizes serum creatinine, sex, and age as parameters. The creatinine assay has traceable calibration to isotope dilution-mass spectrometry. Refer to KDIGO guidelines for clinical interpretation. In patients with unstable renal function, e.g. those with acute kidney injury, the eGFR may not accurately reflect actual GFR. Glucose [Mass/Vol] 87 mg/dL 74 - 99 mg/dL [facility] Comment on above: The [place] [employer] s [employer] (ADA) provides guidance for cutoff values for fasting glucose and random glucose. The ADA defines fasting as no caloric intake for at least 8 hours. Fasting plasma glucose results between 100 to 125 mg/dL indicate increased risk for diabetes (prediabetes). Fasting plasma glucose results greater than or equal to 126 mg/dL meet the criteria for diagnosis of diabetes. In the absence of unequivocal hyperglycemia, results should be confirmed by repeat testing. In a patient with classic symptoms of hyperglycemia or hyperglycemic crisis, random plasma glucose results greater than or equal to 200 mg/dL meet the criteria for diagnosis of diabetes. Reference: Standards of Medical Care in Diabetes 2016, [employer] Association. Diabetes Care. 2016.39(Suppl 1). Interpretation and review of laboratory results Normal [facility] Potassium [Moles/Vol] 4.4 mmol/L 3.7 - 5.1 mmol/L [facility] Protein [Mass/Vol] 7.2 g/dL 6.3 - 8.0 g/dL [facility] Sodium [Moles/Vol] 140 mmol/L 136 - 144 mmol/L [facility] Urea nitrogen [Mass/Vol] 12 mg/dL 7 - 21 mg/dL [facility] Comprehensive metabolic 2000 panelon 10-28-2024 Albumin [Mass/Vol] 4.5 g/dL Normal 3.9-4.9 [facility] Comment on above: Order Comment: Speci men Type: BLOOD SPECIMEN Ordering Facility: [facility] Address: [address] [place] [address] Performed By: #### Lissette BEYER, 5763-8 #### [facility] CLIA [id number] [address] [place] [address] [place] ALP [Catalytic activity/Vol] 85 U/L Normal 34-123 [facility] Comment on above: Order Comment: Speci men Type: BLOOD SPECIMEN Ordering Facility: [facility] Address: [address] [place] [address] Performed By: #### Lissette BEYER, 5763-8 #### [facility] CLIA [id number] [address] [place] [address] [place] ALT [Catalytic activity/Vol] 13 U/L Normal 7-38 [facility] Comment on above: Order Comment: Speci men Type: BLOOD SPECIMEN Ordering Facility: [facility] Address: [address] [place] [address] Performed By: #### Lissette BEYER, 5763-8 #### [facility] CLIA [id number] [address] [place] [address] [place] Anion gap [Moles/Vol] 11 mmol/L Normal 8-15 [facility] Comment on above: Order Comment: Speci men Type: BLOOD SPECIMEN Ordering Facility: [facility] Address: [address] [place] [address] Performed By: #### Lissette BEYER, 5763-8 #### [facility] CLIA [id number] [address] [place] [address] [place] AST [Catalytic activity/Vol] 22 U/L Normal 13-35 [facility] Comment on above: Order Comment: Speci men Type: BLOOD SPECIMEN Ordering Facility: [facility] Address: [address] [place] [address] Performed By: #### Lissette BEYER, 5763-8 #### [facility] CLIA [id number] [address] [place] [address] [place] Bilirubin [Mass/Vol] 0.3 mg/dL Normal 0.2-1.3 [facility] Comment on above: Order Comment: Speci men Type: BLOOD SPECIMEN Ordering Facility: [facility] Address: [address] [place] [address] Performed By: #### Lissette BEYER, 5763-8 #### [facility] CLIA [id number] [address] [place] [address] [place] Calcium [Mass/Vol] 9.5 mg/dL Normal 8.5-10.2 [facility] Comment on above: Order Comment: Speci men Type: BLOOD SPECIMEN Ordering Facility: [facility] Address: [address] [place] [address] Performed By: #### Lissette BEYER, 5763-8 #### [facility] CLIA [id number] [address] [place] [address] [place] Chloride [Moles/Vol] 101 mmol/L Normal 98-107 [facility] Comment on above: Order Comment: Speci men Type: BLOOD SPECIMEN Ordering Facility: [facility] Address: [address] [place] [address] Performed By: #### Lissette BEYER, 5763-8 #### [facility] CLIA [id number] [address] [place] [address] [place] CO2 [Moles/Vol] 28 mmol/L Normal 22-30 [facility] Comment on above: Order Comment: Segundo ferrara Type: BLOOD SPECIMEN Ordering Facility: [facility] Address: [address] [place] [address] Performed By: #### C YUDELKAPER, 5763-8 #### [facility] CLIA [id number] [address] [place] [address] [place] Creatinine [Mass/Vol] 0.74 mg/dL Normal 0.58-0.96 [facility] Comment on above: Order Comment: Speci men Type: BLOOD SPECIMEN Ordering Facility: [facility] Address: [address] [place] [address] Performed By: #### C OPPER, 5763-8 #### [facility] CLIA [id number] [address] [place] [address] [place] [facility] Creatinine and Glomerular filtration rate.predicted panel (S/P/Bld) 87 mL/min/1.73m??? Normal >=60 [facility] Comment on above: Order Comment: Jakobi alem Type: BLOOD SPECIMEN Ordering Facility: [facility] Address: [address] [place] [address] Result Comment: Maria Fernanda mated Glomerular Filtration Rate (eGFR) is calculated using the 2020 CKD-EPI creatinine equation. This equation utilizes serum creatinine, sex, and age as parameters. The creatinine assay has traceable calibration to isotope dilution-mass spectrometry. Refer to KDIGO guidelines for clinical interpretation. In patients with unstable renal function, e.g. those with acute kidney injury, the eGFR may not accurately reflect actual GFR. Performed By: #### C OPPER, 5763-8 #### [facility] CLIA [id number] [address] [place] [address] [place] Glucose [Mass/Vol] 87 mg/dL Normal 74-99 [facility] Comment on above: Order Comment: Jakobi men Type: BLOOD SPECIMEN Ordering Facility: [facility] Address: [address] [place] [address] Result Comment: The [place] Diabetes Association (ADA) provides guidance for cutoff values for fasting glucose and random glucose. The ADA defines fasting as no caloric intake for at least 8 hours. Fasting plasma glucose results between 100 to 125 mg/dL indicate increased risk for diabetes (prediabetes). Fasting plasma glucose results greater than or equal to 126 mg/dL meet the criteria for diagnosis of diabetes. In the absence of unequivocal hyperglycemia, results should be confirmed by repeat testing. In a patient with classic symptoms of hyperglycemia or hyperglycemic crisis, random plasma glucose results greater than or equal to 200 mg/dL meet the criteria for diagnosis of diabetes. Reference: Standards of Medical Care in Diabetes 2016, [place] Diabetes Association. Diabetes Care. 2016.39(Suppl 1). Performed By: #### Lissette BEYER, 5763-8 #### [facility] CLIA [id number] [address] [place] [address] [place] Potassium [Moles/Vol] 4.4 mmol/L Normal 3.7-5.1 [facility] Comment on above: Order Comment: Speci men Type: BLOOD SPECIMEN Ordering Facility: [facility] Address: [address] [place] [address] Performed By: #### Lissette BEYER, 5763-8 #### [facility] CLIA [id number] [address] [place] [address] [place] Protein [Mass/Vol] 7.2 g/dL Normal 6.3-8.0 [facility] Comment on above: Order Comment: Speci men Type: BLOOD SPECIMEN Ordering Facility: [facility] Address: [address] [place] [address] Performed By: #### Lissette BEYER, 5763-8 #### [facility] CLIA [id number] [address] [place] [address] [place] Sodium [Moles/Vol] 140 mmol/L Normal 136-144 [facility] Comment on above: Order Comment: Speci men Type: BLOOD SPECIMEN Ordering Facility: [facility] Address: [address] [place] [address] Performed By: #### Lissette BEYER, 5763-8 #### [facility] CLIA [id number] [address] [place] [address] [place] Urea nitrogen [Mass/Vol] 12 mg/dL Normal 7-21 [facility] Comment on above: Order Comment: Speci men Type: BLOOD SPECIMEN Ordering Facility: [facility] Address: [address] [place] [address] Performed By: #### Lissette BEYER, 5763-8 #### [facility] CLIA [id number] [facility] [place] [address] [place] Follow-Upon 10-13-2024 Follow-Up [id number] Monroe 1955 Date Provider Department [facility] 10/[facility]2024 [facility] No family history on file Level of Service:33816 DC OFFICE/OUTPATIENT ESTABLISHED LOW MDM 20 MIN Reason for Visit and Comments: Follow-up [050880] - Patient here for a follow up on her heartburn, epigastric pain, and to review gall bladder US results completed this morning. Normal [facility] FL ESOPHAGUS BARIUM SWALLOWo n 10-07-2024 DC ESOPHAGUS BARIUM SWALLOW Fluoroscopy esophagus HISTORY: Heartburn COMPARISON: 02/24/2019 FINDINGS: The esophagus is normal in course and caliber with no mucosal filling defects, strictures, or diverticula. There is a moderate-sized hiatal hernia, which appears to consist of both paraesophageal and sliding components (type III hiatal hernia). No gastroesophageal reflux observed. Normal esophageal motility. Reference air kerma 24.5 mGy. IMPRESSION: * Moderate-sized type III hiatal hernia. Electronically signed: Armand Weinstein MD. Normal [facility] Follow-Upon 10-07-2024 Follow-Up [id number] Monroe 1955 Provider Department Center 10/07/2024 [facility] No family history on file Level of Service:22251 DC OFFICE/OUTPATIENT ESTABLISHED LOW MDM 20 MIN Reason for Visit and Comments: Follow-up [464922] - Stephanie is here today for follow up: Heartburn s/p EGD and Esophagram same day [facility] HISTOLOGY - TISSUE EXAMon LAB AP CASE REPORT [facility] Comment on above: Order Comment: Pre-o p diagnosis:Heartburn [R12] Result Comment: Surg ical Pathology Case: [id number] Authorizing Provider: Kayla Rawls MD Collected: 10/02/2024 1048 Ordering Location: [facility] Main Operating Room Received: 10/02/2024 1141 Pathologist: Jasmyn Lopez MD Specimen: Stomach, GE JUNCTION BIOPSY Performed By: #### L [id number] ####[facility] (BEAKER)[address] [place] [address] LAB AP CLINICAL INFORMATION [facility] Comment on above: Order Comment: Pre-o p diagnosis:Heartburn [R12] Result Comment: Post -Op Diagnoses R12 - Heartburn [ICD-10-CM] Performed By: #### L [id number] ####[facility] (BEAKER)[address] [place] [address] LAB AP GROSS DESCRIPTION A. Stomach. [facility] Comment on above: Order Comment: Pre-o p diagnosis:Heartburn [R12] Result Comment: Rece ived in formalin labeled Stephanie Flaco, GE junction biopsy is scant red feathery material. Definitive soft tissue is indeterminant. The specimen is submitted to cytology for cellblock. Jasmyn Arceo, Pathologists' Belt Line Feeder Performed By: #### L [id number] ####[facility] (BEAKER)[address] [place] [address] LAB AP MICROSCOPIC DESCRIPTION Microscopic examination performed. [facility] Comment on above: Order Comment: Pre-o p diagnosis:Heartburn [R12] Performed By: #### L [id number] ####[facility] (BEAKER)[address] [place] [address] LAB AP REPORT FINAL DIAGNOSIS NARRATIVE [facility] Comment on above: Order Comment: Pre-o p diagnosis:Heartburn [R12] Result Comment: GE j unction, biopsy: - No viable tissue present for evaluation Performed By: #### L [id number] ####[facility] (AMOL)[address] [place] [address] HPon 10-02-2024 HP H&P reviewed. The sugar jean baptiste was examined and there are no changes to the H&P. Normal [facility] OPNOTEon 10-02-2024 OPNOTE EGD (ESOPHAGOGASTRODUODENOSCOPY) HIATUS 35CM, GE JUNCTION 30CM Operative Note Date: 10/02/2024 Location: [facility] OR Name: Stephanie Larson, : 1955, Diagnosis Pre-op Diagnosis * Heartburn [R12] Post-op Diagnosis * Heartburn [R12] Procedures EGD (ESOPHAGOGASTRODUODENOSCOPY) HIATUS 35CM, GE JUNCTION 30CM [address]304 - DC ESOPHAGOGASTRODUODENOSCOPY TRANSORAL DIAGNOSTIC Surgeons Primary: Kayla Rawls MD Resident - Assisting: Wendie Vizcarra MD Procedure Summary Anesthesia: Monitor Anesthesia Care ASA: ASA status not filed in the log. Estimated Blood Loss: Minimal Total IV Fluids: Refer to anesthesia record Drains: * None in log * Specimens ID Source Type Tests Collected By Collected At Frozen? Priority Lab ID A Stomach Tissue HISTOLOGY - TISSUE EXAM Kayla Rawls MD 10/02/24 1048 Routine Description: GE JUNCTION BIOPSY Staff: Public Speaking Professor: Nilo Bar RN Scrub Person: Talisha Vizcarra [place] Public Speaking Professor: Sina Ramsey RN Indications: Stephanie Larson is an 69 y.o. female who is having surgery for Heartburn [R12]. Patient has history of hiatal hernia repair in 2010 and has been experiencing worsening reflux. Procedure Details: The patient was seen in the preoperative area. The risks, benefits, complications, treatment options, non-operative alternatives, expected recovery and outcomes were discussed with the patient. The possibilities of reaction to medication, pulmonary aspiration, injury to surrounding structures, bleeding, recurrent infection, the need for additional procedures, failure to diagnose a condition, and creating a complication requiring transfusion or operation were discussed with the patient. The patient concurred with the proposed plan, giving informed consent. The site of surgery was properly noted/marked if necessary per policy. The patient has been actively warmed in preoperative area. Preoperative antibiotics are not indicated. Venous thrombosis prophylaxis are not indicated. Patient brought to the endoscopy suite and placed in left lateral position. Monitored care anesthesia initiated and found to be adequate. Endoscope was advanced and the esophagus, stomach, and mid-distal portion of the duodenum (confirmed by visualization of the papilla) examined. The z line appeared normal. No evidence of ulceration. Evidence of recurrent hiatal hernia with hiatus at 35 cm and GE junction at 30 cm. There were benign appearing gastric polyps which were not biopsied. An area of erythema noted near the pylorus which was biopsied. No other abnormalities identified. Findings: Normal Z line. Hiatus at 35 cm and GE junction at 30 cm with evidence of recurrent hiatal hernia. Benign appearing gastric polyps noted. An area of erythema near the pylorus biopsied. No ulcerations noted. Complications: None; patient tolerated the procedure well. Disposition: PACU - hemodynamically stable. Condition: stable Dr. Rawls was present for the entire procedure. Wendie Vizcarra MD General Surgery Resident Normal [facility] POCT GLUCOSE METER UNSOLICIT ED RESULTSon 10-02-2024 Glucose [Mass/Vol] 78 mg/dL Normal 70-105 [facility] Comment on above: Order Comment: Waive d Testing in the ED is performed under the ED CLIA certificate #[id number]. Result Comment: jenc k2 Performed By: #### L [id number] ####[facility] (BEAKER)[address] [place] [address] Orders Onlyon 09-21-2024 Orders Only [id number] Davida Larson 1955 F Date Provider Department Center 09/21/2024 [id number][facility] Medical C No family history on file Normal [facility] CBC W Auto Differential pane l (Bld)on 09-17-2024 Basophils (Bld) [#/Vol] 0.03 10*3/uL Normal <0.11 [facility] Comment on above: Order Comment: Speci men Type: BLOOD SPECIMEN Ordering Facility: [facility] Address: [address] [place] [address] [place] [address] Performed By: #### 5 7021-8 #### [facility] CLIA [id number] [address] [place] [address] Basophils/100 WBC (Bld) 0.9 % Normal [facility] Comment on above: Order Comment: Speci men Type: BLOOD SPECIMEN Ordering Facility: [facility] Address: [address] [place] [address] Performed By: #### 5 7021-8 #### [facility] CLIA [id number] [address] [place] [address]23 Differential cell count method Nom (Bld) Auto Normal [facility] Comment on above: Order Comment: Speci men Type: BLOOD SPECIMEN Ordering Facility: [facility] Address: [address] [place] [address] Performed By: #### 5 7021-8 #### [facility] CLIA [id number] [address] [place] [address] Eosinophils (Bld) [#/Vol] 0.09 10*3/uL Normal <0.46 [facility] Comment on above: Order Comment: Speci men Type: BLOOD SPECIMEN Ordering Facility: [facility] Address: [address] [place] [address] Performed By: #### 5 7021-8 #### [facility] CLIA [id number] [address] [place] [address] Eosinophils/100 WBC (Bld) 2.8 % Normal [facility] Comment on above: Order Comment: Speci men Type: BLOOD SPECIMEN Ordering Facility: [facility] Address: [address] [place] [address] Performed By: #### 5 7021-8 #### [facility] CLIA [id number] [address] [place] [address] Erythrocyte distribution width (RBC) [Ratio] 12.3 % Normal 11.5-15.0 [facility] Comment on above: Order Comment: Speci men Type: BLOOD SPECIMEN Ordering Facility: [facility] Address: [address] [place] [address] Performed By: #### 5 7021-8 #### [facility] CLIA [id number] [address] [place] [address] Hematocrit (Bld) [Volume fraction] 37.5 % Normal 36.0-46.0 [facility] Comment on above: Order Comment: Speci men Type: BLOOD SPECIMEN Ordering Facility: [facility] Address: [address] [place] [address] Performed By: #### 5 7021-8 #### [facility] CLIA [id number] [address] [place] [address]25 Hemoglobin (Bld) [Mass/Vol] 12.2 g/dL Normal 11.5-15.5 [facility] Comment on above: Order Comment: Speci men Type: BLOOD SPECIMEN Ordering Facility: [facility] Address: [address] [place] [address] Performed By: #### 5 7021-8 #### [facility] CLIA [id number] [address] [place] [address]23 Immature granulocytes (Bld) [#/Vol] 10*3/uL Normal <0.10 [facility] Comment on above: Order Comment: Speci men Type: BLOOD SPECIMEN Ordering Facility: [facility] Address: [address] [place] [address] Performed By: #### 5 7021-8 #### [facility] CLIA [id number] [address] [place] [address] 11465 Immature granulocytes/100 WBC (Bld) 0.0 % Normal [facility] Comment on above: Order Comment: Speci men Type: BLOOD SPECIMEN Ordering Facility: [facility] Address: [address] [place] [address] Performed By: #### 5 7021-8 #### [facility] CLIA [id number] [address] [place] [address] 46087 Lymphocytes (Bld) [#/Vol] 1.73 10*3/uL Normal 1.00-4.00 [facility] Comment on above: Order Comment: Speci men Type: BLOOD SPECIMEN Ordering Facility: [facility] Address: [address] [place] [address] Performed By: #### 5 7021-8 #### [facility] CLIA [id number] [address] [place] [address] Lymphocytes/100 WBC (Bld) 54.6 % Normal [facility] Comment on above: Order Comment: Speci men Type: BLOOD SPECIMEN Ordering Facility: [facility] Address: [address] [place] [address] Performed By: #### 5 7021-8 #### [facility] CLIA [id number] [address] [place] [address] 01683 MCH (RBC) [Entitic mass] 32.3 pg Normal 26.0-34.0 [facility] Comment on above: Order Comment: Speci men Type: BLOOD SPECIMEN Ordering Facility: [facility] Address: [address] [place] [address] Performed By: #### 5 7021-8 #### [facility] CLIA [id number] [address] [place] [address] 40927 MCHC (RBC) [Mass/Vol] 32.5 g/dL Normal 30.5-36.0 [facility] Comment on above: Order Comment: Speci men Type: BLOOD SPECIMEN Ordering Facility: [facility] Address: [address] [place] [address] Performed By: #### 5 7021-8 #### [facility] CLIA [id number] [address] [place] [address] 27699 MCV (RBC) [Entitic vol] 99.2 fL Normal 80.0-100.0 [facility] Comment on above: Order Comment: Speci men Type: BLOOD SPECIMEN Ordering Facility: [facility] Address: [address] [place] [address] Performed By: #### 5 7021-8 #### [facility] CLIA [id number] [address] [place] [address] 41807 Monocytes (Bld) [#/Vol] 0.29 10*3/uL Normal <0.87 [facility] Comment on above: Order Comment: Speci men Type: BLOOD SPECIMEN Ordering Facility: [facility] Address: [address] [place] [address] Performed By: #### 5 7021-8 #### [facility] CLIA [id number] [address] [place] [address] 72114 Monocytes/100 WBC (Bld) 9.1 % Normal [facility] Comment on above: Order Comment: Speci men Type: BLOOD SPECIMEN Ordering Facility: [facility] Address: [address] [place] [address] Performed By: #### 5 7021-8 #### [facility] CLIA [id number] [address] [place] [address] 09937 Neutrophils (Bld) [#/Vol] 1.03 10*3/uL Low 1.45-7.50 [facility] Comment on above: Order Comment: Speci men Type: BLOOD SPECIMEN Ordering Facility: [facility] Address: [address] [place] [address] Performed By: #### 5 7021-8 #### [facility] CLIA [id number] [address] [place] [address] 86518 Neutrophils/100 WBC (Bld) 32.6 % Normal [facility] Comment on above: Order Comment: Speci men Type: BLOOD SPECIMEN Ordering Facility: [facility] Address: [address] [place] [address] Performed By: #### 5 7021-8 #### [facility] CLIA [id number] [address] [place] [address] 69739 Nucleated RBC (Bld) [#/Vol] 10*3/uL Normal <0.01 [facility] Comment on above: Order Comment: Speci men Type: BLOOD SPECIMEN Ordering Facility: [facility] Address: [address] [place] [address] Performed By: #### 5 7021-8 #### [facility] CLIA [id number] [address] [place] [address] Nucleated RBC/100 WBC (Bld) [Ratio] 0.0 /100 WBC Normal [facility] Comment on above: Order Comment: Speci men Type: BLOOD SPECIMEN Ordering Facility: [facility] Address: [address] [place] [address] Performed By: #### 5 7021-8 #### [facility] CLIA [id number] [address] [place] [address] 68729 Platelet mean volume (Bld) [Entitic vol] 9.5 fL Normal 9.0-12.7 [facility] Comment on above: Order Comment: Speci men Type: BLOOD SPECIMEN Ordering Facility: [facility] Address: [address] [place] [address] Performed By: #### 5 7021-8 #### [facility] CLIA [id number] [address] [place] [address] 28217 Platelets (Bld) [#/Vol] 254 10*3/uL Normal 150-400 [facility] Comment on above: Order Comment: Speci men Type: BLOOD SPECIMEN Ordering Facility: [facility] Address: [address] [place] [address] Performed By: #### 5 7021-8 #### [facility] CLIA [id number] [address] [place] [address] RBC (Bld) [#/Vol] 3.78 10*6/uL Low 3.90-5.20 [facility] Comment on above: Order Comment: Speci men Type: BLOOD SPECIMEN Ordering Facility: [facility] Address: [address] [place] [address] Performed By: #### 5 7021-8 #### [facility] CLIA [id number] [address] [place] [address] WBC (Bld) [#/Vol] 3.17 10*3/uL Low 3.70-11.00 [facility] Comment on above: Order Comment: Speci men Type: BLOOD SPECIMEN Ordering Facility: [facility] Address: [address] [place] [address] Performed By: #### 5 7021-8 #### [facility] CLIA [id number] [address] [place] [address] COPPER BLOODon 09-17-2024 Copper [Mass/Vol] 87 ug/dL Normal 80-155 [facility] Comment on above: Order Comment: Speci men Type: BLOOD SPECIMEN Ordering Facility: [facility] Address: [address] [place] [address] Result Comment: This test was developed, and its performance characteristics determined by the [facility] Department of Pathology and Laboratory Medicine. It has not been cleared or approved by the FDA. The [facility] Department of Pathology and Laboratory Medicine is regulated under CLIA as qualified to perform high-complexity testing. This test is used for clinical purposes. It should not be regarded as investigational or for research. Performed By: #### Lissette BEYER, 5763-8 #### [facility] CLIA [id number] [address] [place] [address] [place] Comprehensive metabolic 2000 panelon 09-17-2024 Albumin [Mass/Vol] 4.4 g/dL Normal 3.9-4.9 [facility] Comment on above: Order Comment: Speci men Type: BLOOD SPECIMEN Ordering Facility: [facility] Address: [address] [place] [address] Performed By: #### Lissette BEYER, 5763-8 #### [facility] CLIA [id number] [address] [place] [address] [place] ALP [Catalytic activity/Vol] 92 U/L Normal 34-123 [facility] Comment on above: Order Comment: Speci men Type: BLOOD SPECIMEN Ordering Facility: [facility] Address: [address] [place] [address] Performed By: #### Lissette BEYER, 5763-8 #### [facility] CLIA [id number] [address] [place] [address] [place] ALT [Catalytic activity/Vol] 16 U/L Normal 7-38 [facility] Comment on above: Order Comment: Speci men Type: BLOOD SPECIMEN Ordering Facility: [facility] Address: [address] [place] [address] Performed By: #### Lissette BEYER, 5763-8 #### [facility] CLIA [id number] [address] [place] [address] [place] Anion gap [Moles/Vol] 10 mmol/L Normal 8-15 [facility] Comment on above: Order Comment: Speci men Type: BLOOD SPECIMEN Ordering Facility: [facility] Address: [address] [place] [address] Performed By: #### Lissette BEYER, 5763-8 #### [facility] CLIA [id number] [address] [place] [address] [place] AST [Catalytic activity/Vol] 19 U/L Normal 13-35 [facility] Comment on above: Order Comment: Speci men Type: BLOOD SPECIMEN Ordering Facility: [facility] Address: [address] [place] [address] Performed By: #### Lissette BEYER, 5763-8 #### [facility] CLIA [id number] [address] [place] [address] [place] Bilirubin [Mass/Vol] 0.4 mg/dL Normal 0.2-1.3 [facility] Comment on above: Order Comment: Speci men Type: BLOOD SPECIMEN Ordering Facility: [facility] Address: [address] [place] [address] Performed By: #### Lissette BEYER, 5763-8 #### [facility] CLIA [id number] [address] [place] [address] [place] Calcium [Mass/Vol] 8.9 mg/dL Normal 8.5-10.2 [facility] Comment on above: Order Comment: Speci men Type: BLOOD SPECIMEN Ordering Facility: [facility] Address: [address] [place] [address] Performed By: #### Lissette JHAPER, 5763-8 #### [facility] CLIA [id number] [address] [place] [address] [place] Chloride [Moles/Vol] 103 mmol/L Normal 98-107 [facility] Comment on above: Order Comment: Speci men Type: BLOOD SPECIMEN Ordering Facility: [facility] Address: [address] [place] [address] Performed By: #### Lissette BEYER, 5763-8 #### [facility] CLIA [id number] [address] [place] [address] [place] CO2 [Moles/Vol] 30 mmol/L Normal 22-30 [facility] Comment on above: Order Comment: Speci men Type: BLOOD SPECIMEN Ordering Facility: [facility] Address: [address] [place] [address] Performed By: #### Lissette BEYER, 5763-8 #### [facility] CLIA [id number] [address] [place] [address] [place] Creatinine [Mass/Vol] 0.71 mg/dL Normal 0.58-0.96 [facility] Comment on above: Order Comment: Speci men Type: BLOOD SPECIMEN Ordering Facility: [facility] Address: [address] [place] [address] Performed By: #### Lissette BEYER, 5763-8 #### [facility] CLIA [id number] [address] [place] [address] [place] Creatinine and Glomerular filtration rate.predicted panel (S/P/Bld) 92 mL/min/1.73m??? Normal >=60 [facility] Comment on above: Order Comment: Speci men Type: BLOOD SPECIMEN Ordering Facility: [facility] Address: [address] [place] [address] Result Comment: Maria Fernanda mated Glomerular Filtration Rate (eGFR) is calculated using the 2020 CKD-EPI creatinine equation. This equation utilizes serum creatinine, sex, and age as parameters. The creatinine assay has traceable calibration to isotope dilution-mass spectrometry. Refer to KDIGO guidelines for clinical interpretation. In patients with unstable renal function, e.g. those with acute kidney injury, the eGFR may not accurately reflect actual GFR. Performed By: #### Lissette BEYER, 5763-8 #### [facility] CLIA [id number] [address] [place] [address] [place] Glucose [Mass/Vol] 95 mg/dL Normal 74-99 [facility] Comment on above: Order Comment: Segundo ferrara Type: BLOOD SPECIMEN Ordering Facility: [facility] Address: [address] [place] [address] Result Comment: The [place] Diabetes Association (ADA) provides guidance for cutoff values for fasting glucose and random glucose. The ADA defines fasting as no caloric intake for at least 8 hours. Fasting plasma glucose results between 100 to 125 mg/dL indicate increased risk for diabetes (prediabetes). Fasting plasma glucose results greater than or equal to 126 mg/dL meet the criteria for diagnosis of diabetes. In the absence of unequivocal hyperglycemia, results should be confirmed by repeat testing. In a patient with classic symptoms of hyperglycemia or hyperglycemic crisis, random plasma glucose results greater than or equal to 200 mg/dL meet the criteria for diagnosis of diabetes. Reference: Standards of Medical Care in Diabetes 2016, [place] Diabetes Association. Diabetes Care. 2016.39(Suppl 1). Performed By: #### Lissette BEYER, 5763-8 #### [facility] CLIA [id number] [address] [place] [address] [place] Potassium [Moles/Vol] 4.2 mmol/L Normal 3.7-5.1 [facility] Comment on above: Order Comment: Segundo ferrara Type: BLOOD SPECIMEN Ordering Facility: [facility] Address: [address] [place] [address] Performed By: #### Lissette BEYER, 5763-8 #### [facility] CLIA [id number] [address] [id number] [address] [place] Protein [Mass/Vol] 7.2 g/dL Normal 6.3-8.0 [facility] Comment on above: Order Comment: Speci men Type: BLOOD SPECIMEN Ordering Facility: [facility] Address: [address] [place] [address] Performed By: #### Lissette BEYER, 5763-8 #### [facility] CLIA [id number] [address] [place] [address] [place] Sodium [Moles/Vol] 143 mmol/L Normal 136-144 [facility] Comment on above: Order Comment: Speci men Type: BLOOD SPECIMEN Ordering Facility: [facility] Address: [address] [place] [address] Performed By: #### Lissette BEYER, 5763-8 #### [facility] CLIA [id number] [address] [place] [address] [place] Urea nitrogen [Mass/Vol] 11 mg/dL Normal 7-21 [facility] Comment on above: Order Comment: Speci men Type: BLOOD SPECIMEN Ordering Facility: [facility] Address: [address] [place] [address] Performed By: #### Lissette BEYER, 5763-8 #### [facility] CLIA [id number] [address] [place] [address] [place] Ferritin SerPl-mCncon 2023 Ferritin [Mass/Vol] 78.8 ng/mL Normal 14.7-205.1 [facility] Comment on above: Order Comment: Speci men Type: BLOOD SPECIMEN Ordering Facility: [facility] Address: [address] [place] [address] Performed By: #### 5 0190-8, 2132-9, 2276-4, 2284-8 #### [facility] CLIA [id number] [address] [place] [address] [place] Folate SerPl-mCncon 09-17-20 Folate [Mass/Vol] 12.1 ng/mL Normal >4.7 [facility] Comment on above: Order Comment: Speci men Type: BLOOD SPECIMEN Ordering Facility: [facility] Address: [address] [place] [address] Performed By: #### 5 0190-8, 9, 2275-12, 2284-04 #### [facility] CLIA [id number] [address] [place] [address] [place] Iron and Iron binding capaci ty panelon 09-17-2024 Iron [Mass/Vol] 78 ug/dL Normal 41-186 [facility] Comment on above: Order Comment: Speci men Type: BLOOD SPECIMEN Ordering Facility: [facility] Address: [address] [place] [address] Performed By: #### 5 0190-8, 2132-05, 2275-12, 2284-04 #### [facility] CLIA [id number] [address] [place] [address] [place] Iron binding capacity [Mass/Vol] 260 ug/dL Normal 232-386 [facility] Comment on above: Order Comment: Speci men Type: BLOOD SPECIMEN Ordering Facility: [facility] Address: [address] [place] [address] Performed By: #### 5 0190-8, 9, 2275-12, 2284-04 #### [facility] CLIA [id number] [address] [place] [address] [place] Iron/TIBC [Molar ratio] 30.0 % Normal 15.0-57.0 [facility] Comment on above: Order Comment: Speci men Type: BLOOD SPECIMEN Ordering Facility: [facility] Address: [address] [place] [address] Performed By: #### 5 0190-8, 9, 2275-12, 2284-04 #### [facility] CLIA [id number] [address] [id number] [address] [place] Nuclear Ab IA Ql (S)on 09-17 ARLEY SCR QUAL Negative Normal Negative [facility] Comment on above: Order Comment: Segundo ferrara Type: BLOOD SPECIMEN Ordering Facility: [facility] Address: [address] [place] [address] Result Comment: The qualitative antinuclear antibody screen test performed using the following antigens: dsDNA, Chromatin, Ribosomal P, SS-A 60, SS-A 52, SS-B, Sm, SmRNP, MEDICAL OFFICE MANAGER A, MEDICAL OFFICE MANAGER 68, Scl-70, Zoe-1, and Centromere B. Methodology: Multiplex flow immunoassay. Performed By: #### 4 7383-5 #### [facility] CLIA [id number] [address] [place], [place] [address] [place] Vit [facility] Cobalamin (Vitamin B12) [Mass/Vol] 433 pg/mL Normal 232-1245 [facility] Comment on above: Order Comment: Segundo ferrara Type: BLOOD SPECIMEN Ordering Facility: [facility] Address: [address] [place] [address] Performed By: #### 5 0190-8, 2132-9, 2276-4, 2284-8 #### [facility] CLIA [id number] [address] [place] [address] [place] Zinc [facility] 09-17-2024 Zinc [Mass/Vol] 108 ug/dL Normal 60-120 [facility] Comment on above: Order Comment: Segundo ferrara Type: BLOOD SPECIMEN Ordering Facility: [facility] Address: [address] [place] [address] Result Comment: This test was developed, and its performance characteristics determined by the [facility] Department of Pathology and Laboratory Medicine. It has not been cleared or approved by the FDA. The [facility] Department of Pathology and Laboratory Medicine is regulated under CLIA as qualified to perform high-complexity testing. This test is used for clinical purposes. It should not be regarded as investigational or for research. Performed By: #### C PEPITO, 5763-8 #### [facility] CLIA [id number] [address] [place] [id number] [facility] CNOVSPon 09-16-2024 CNOVSP Visit (SP) Office ([facility]) STEPHANIE LARSON ([id number]) 1955 F Date Time Provider Department 09/16/24 4:00 PM DON VILLANUEVA During your visit today, we recorded the following information about you: Temperature Pulse Respiration Blood pressure 97.8 degrees 79/minute 18/minute 115/68 Weight Height 52.6 kg 1.575 m Don Villanueva MD 09/16/2024 4:29 PM Signed PATIENT NAME: Stephanie Larson CLINIC NO.: [id number] ATTENDING PHYSICIAN: Don Villanueva MD DATE OF SERVICE: September 16, [address] Rogers Che MD ([facility]) [address] [facility] [address] thank you for referring Stephanie Larson for an opinion regarding Leukopenia. CHIEF COMPLAINT: Leukopenia HPI: Stephanie Larson is a 68 year old year old female with GERD, depression referred to us for leukopenia. No smoking Occasionally drinks alcohol DEXA scan showed osteoporosis Uptodate with mammogram. CBC on showed WBC 2.5 and ANC 1.0 No complaints Current Outpatient Medications Medication Sig esomeprazole (NEXIUM) 40 mg capsule Take 40 mg by mouth once daily. sertraline (ZOLOFT) 50 mg tablet Take 50 mg by mouth every morning. oxybutynin ER (DITROPAN XL) 10 mg 24 hr tablet TAKE 1 TABLET BY MOUTH ONCE DAILY DO NOT CRUSH CHEW OR SPLIT fexofenadine-pseudoephedrine (ALVA D) 60-120 mg per tablet Take 1 tablet by mouth once daily. No current facility-administered medications for this visit. ALLERGIES Not on File PAST MEDICAL HISTORY Diagnosis Date Depression GERD (gastroesophageal reflux disease) Hypercholesterolemia Leukopenia No past surgical history on file. No family history on file. REVIEW OF SYSTEMS GENERAL: No weight loss, malaise or fevers. No night sweats. HEENT: Negative for headaches, No changes in hearing or vision, no nose bleeds or other nasal problems. RESPIRATORY: Negative for cough, wheezing and shortness of breath CARDIOVASCULAR: Negative for chest pain, leg swelling and palpitations GI: Negative for abdominal discomfort, blood in stools or black stools and change in bowel habits : Negative for dysuria, frequency and incontinence MUSCULOSKELETAL: Negative for joint pain or swelling, back pain, and muscle pain. SKIN: Negative for lesions, rash, and itching. HEMATOLOGY/LYMPHOLOGY Negative for prolonged bleeding, bruising easily, and swollen nodes. NEURO: Negative for numbness or tingling of hands/feet. No weakness. PHYSICAL EXAMINATION: There were no vitals taken for this visit. There were no vitals taken for this visit. No data found for this vital: Wt General appearance:ECOG PERFORMANCE STATUS: 0- Fully active, able to carry on all pre-disease performance w/o restriction. Patient in NAD. Skin: Skin color, texture, turgor normal. No rashes or lesions. Eyes: Anicteric sclera. Pupils are equally round and reactive to light. Extraocular movements are intact. Breast: No palpable breast masses. No nipple change or discharge. Lymph Nodes: No cervical, supraclavicular, axillary or inguinal adenopathy. Oropharynx: Lips, mucosa, and tongue normal. Back: No pain to percussion. Negative SLR test Lungs clear to auscultation, No wheezing or rhonchi Heart: RRR without murmur, gallop, or rubs. Abdomen soft, non-tender. No masses, organomegaly Extremities: No deformities. No edema Neuro: Gait and speech normal. Reflexes normal and symmetric. Muscular strength intact. Sensation grossly intact. Rectal: Deferred : Deferred LABS: BUN (mg/dL) Date Value 10/01/2023 13 No results found for: WBC , RBC , HB , HCT , MCV , MCH , MCHC , RDWCV , PLT , MPV , NEUT , ABSNEUT , LYMPHP , ABSLYMPH , MONOP , ABSMONO , EOSINP , ABSEOSIN , BASOP , ABSBASO PATH: IMAGING: ASSESSMENT AND PLAN: Stephanie Larson is a 68 year old year old female referred to us for leukopenia. PS 0 PLAN: -Explained to her in detail the various etiologies for leukopenia including vitamin deficiencies , autoimmune disorders and bone marrow disorders. -CBC on 08/19/24 showed WBC 2.5 and ANC 1.0 with a normal hemoglobin and platelets. -Check CBC CMP ferritin iron studies B12 folate ARLEY copper and zinc levels -Monitor the mild neutropenia for now -Further management depending on the above blood test results -Will consider doing a bone marrow biopsy in the future if necessary -All her questions answered in detail - F/u in [address] Rogers Che MD ([facility]) [address] [place] [address] thank you for allowing me to participate in Stephanie Larson care, if there are any questions or concerns please do not hesitate to contact me at the number below. I spent a total of 45 minutes on the date of the service which included preparing to see the patient, [id number] patient care, completing clinical doc (more content not included)... Normal [facility] Follow-Upon 09-15-2024 Follow-Up [id number] Davida Larson 1955 F Date Provider Department Center 09/15/2024 Frank-KAYLA RAWLS [facility] SURG Second Fl No family history on file Level of Service:60451 DC OFFICE/OUTPATIENT ESTABLISHED LOW MDM 20 MIN Reason for Visit and Comments: Follow-up [789737] - Stephanie is here today for follow up: s/p hiatal hernia repair in 2009, having increased heartburn Normal [facility] HPon 09-15-2024 HP Subjective Patient ID: Stephanie Larson is a 68 y.o. female who presents for Follow-up (Stephanie is here today for follow up: s/p hiatal hernia repair in 2009, having increased heartburn/). HPI She is tolerating soft diet and with normal BM. Review of Systems Constitutional: Negative. HENT: Negative. Respiratory: Negative. Cardiovascular: Negative. Gastrointestinal: Negative. Genitourinary: Negative. Neurological: Negative. Hematological: Negative. Objective Visit Vitals BP 97/65 (BP Location: Right arm, Patient Position: Sitting) Pulse 63 Temp 36.7 ???C (98 ???F) (Oral) Physical Exam HENT: Head: Atraumatic. Cardiovascular: Rate and Rhythm: Normal rate. Pulmonary: Effort: Pulmonary effort is normal. Abdominal: General: Abdomen is flat. Palpations: Abdomen is soft. Musculoskeletal: Cervical back: Neck supple. Neurological: Mental Status: She is alert and oriented to person, place, and time. Assessment/Plan Heartburn EGD Esophagram No diagnosis found. No orders of the defined types were placed in this encounter. No results found for this or any previous visit (from the past 36 hour(s)). No follow-ups on file. Normal [facility] MAMM SCREENING BILATERAL W C compensation and hris analyst 09-10-2024 MAMM SCREENING BILATERAL W CAD MAMM SCREENING BILATERAL W CAD STEPHANIE LARSON 1955 [id number] EXAM: MAMM SCREENING BILATERAL W CAD, 09/10/2024 11:33 AM CLINICAL INDICATIONS: Screening, Encounter for screening mammogram for malignant neoplasm of breast COMPARISON: 09/09/2023 TECHNIQUE: Bilateral digital tomosynthesis MLO and CC views of the breasts were obtained, with creation of synthetic 2D views. Computer aided detection was utilized. FINDINGS: The breasts are extremely dense, which lowers the sensitivity of mammography. There are no suspicious masses, calcifications, or areas of architectural distortion. IMPRESSION: No mammographic evidence of malignancy. BI-RADS: BI-RADS 1 - Negative RECOMMENDATION: Routine screening mammogram in 1 year. RISK ASSESSMENT: TC Lifetime risk: 5.5%. The patient's reported personal and family medical history was used calculate their Tyrer-Cuzick lifetime risk of malignancy. Scores less than 20% are not considered high risk per ACR guidelines and patient should continue with the above recommendation. Finalized by Sy Sandoval MD on 09/10/2024 1:09 PM 1 d MAMM 1 YR Normal [facility] DEXA BONE DENSITYon 09-08-20 24 DEXA BONE DENSITY Examination: DEXA CARLOS NE DENSITY Clinical History: osteoporosis Technique: Bone density study was performed. T score values for the lumbar spine, right femoral neck and left femoral neck were obtained. Comparison: 09/03/2022. Findings: Value for the lumbar spine from L1-L4 is -1.9. Value for the right femoral neck is -2.8. Value for the left femoral neck is -2.9. Findings are compatible with osteoporosis with high increased fracture risk. Study was compared to the prior exam dated 09/03/2022 which demonstrates similar findings. IMPRESSION: Impression: Findings compatible osteoporosis with high increased fracture risk. Findings are similar to the prior exam. ELECTRONICALLY SIGNED BY: Narendra Goodwin M.D. Normal Not Available Comment on above: Order Comment: Kay layne send images along with the report CBC AND AUTO DIFFon 08-19-20 ABSOLUTE BASOPHIL 0.0 X10E9/L Normal 0.0-0.2 [facility] Comment on above: Performed By: #### Lissette WEAVER CMP, 64211-8 #### [facility] ([id number]) [address], [address] [place] [address] ABSOLUTE NEUTROPHIL 1.0 X10E9/L Low 1.5-6.6 [facility] Comment on above: Performed By: #### Lissette WEAVER CMP, 23688-2 #### [facility] ([id number]) [address], [address] [place] [address] Basophils/100 WBC (Bld) 0.5 % Normal [facility] Comment on above: Performed By: #### Lissette WEAVER CMP, 71635-2 #### [facility] ([id number]) [address], [address] [place] [address] Eosinophils (Bld) [#/Vol] 0.1 10*3/uL Normal 0.0-0.4 [facility] Comment on above: Performed By: #### Lissette WEAVER CMP, 81914-3 #### [facility] ([id number]) [address], [address] [place] [address] Eosinophils/100 WBC (Bld) 2.2 % Normal [facility] Comment on above: Performed By: #### Lissette WEAVER CMP, 65540-3 #### [facility] ([id number]) [address], [facility] [address] [place] [address] Erythrocyte distribution width (RBC) [Ratio] 13.0 % Normal 11.5-15.0 [facility] Comment on above: Performed By: #### Lissette WEAVER CMP, 78218-4 #### [facility] ([id number]) [address] [address] [place] [address] Hematocrit (Bld) [Volume fraction] 38.0 % Normal 35-47 [facility] Comment on above: Performed By: #### Lissette WEAVER CMP, 07451-4 #### [facility] ([id number]) [address] [address] [place] [address] Hemoglobin (Bld) [Mass/Vol] 12.8 g/dL Normal 11.7-15.5 [facility] Comment on above: Performed By: #### Lissette WEAVER CMP, 97246-8 #### [facility] ([id number]) [address] [address] [place] [address] Lymphocytes (Bld) [#/Vol] 1.3 10*3/uL Normal 1.0-3.5 [facility] Comment on above: Performed By: #### Lissette WEAVER CMP, 80070-5 #### [facility] ([id number]) [address] [address] [place] [address] Lymphocytes/100 WBC (Bld) 50.1 % Normal [facility] Comment on above: Performed By: #### Lissette WEAVER, CMP, 02557-4 #### [facility] ([id number]) [address] [address] [place] [address] MCH (RBC) [Entitic mass] 33.1 pg Normal 27-34 [facility] Comment on above: Performed By: #### Lissette WEAVER, CMP, 37723-9 #### [facility] ([id number]) [address] [place] [address] MCHC (RBC) [Mass/Vol] 33.7 g/dL Normal 32-36 [facility] Comment on above: Performed By: #### Lissette WEAVER CMP, 50282-7 #### [facility] ([id number]) [address], [address] [place] [address] MCV (RBC) [Entitic vol] 98 fL Normal 80-100 [facility] Comment on above: Performed By: #### Lissette WEAVER CMP, 13691-4 #### [facility] ([id number]) [address] [place] [address] Monocytes (Bld) [#/Vol] 0.2 10*3/uL Normal 0-0.9 [facility] Comment on above: Performed By: #### Lissette WEAVER CMP, 74290-6 #### [facility] ([id number]) [address] [place] [address] Monocytes/100 WBC (Bld) 9.7 % Normal [facility] Comment on above: Performed By: #### Lissette WEAVER CMP, 01169-7 #### [facility] ([id number]) [address] [place] [address] Neutrophils/100 WBC (Bld) 37.5 % Normal [facility] Comment on above: Performed By: #### Lissette WEAVER CMP, 86538-2 #### [facility] ([id number]) [address] [place] [address] Platelet mean volume (Bld) [Entitic vol] 8.0 fL Normal 7-12 [facility] Comment on above: Performed By: #### Lissette WEAVER CMP, 79331-8 #### [facility] ([id number]) [address] [place] [address] Platelets (Bld) [#/Vol] 249 10*3/uL Normal 150-450 [facility] Comment on above: Performed By: #### C MEG CMP, 51639-1 #### [facility] ([id number]) [address], [address] [place] [address] RBC COUNT 3.87 X10E12/L Normal 3.80-5.20 [facility] Comment on above: Performed By: #### C MEG CMP, 52459-4 #### [facility] ([id number]) [address] [place] [address] WBC (Bld) [#/Vol] 2.5 10*3/uL Low 4.0-11.0 [facility] Comment on above: Performed By: #### C MEG CMP, 03410-7 #### [facility] ([id number]) [address] [place] [address] COMPREHENSIVE METABOLIC PANE [facility] 08-19-2024 Albumin [Mass/Vol] 4.3 g/dL Normal 3.2-5.3 [facility] Comment on above: Performed By: #### Lissette WEAVER CMP, 71350-1 #### [facility] ([id number]) [address] [place] [address] ALP [Catalytic activity/Vol] 90 U/L Normal 39-130 [facility] Comment on above: Performed By: #### C MEG CMP, 28376-0 #### [facility] ([id number]) [address] [place] [address] ALT [Catalytic activity/Vol] 28 U/L Normal 0-31 [facility] Comment on above: Performed By: #### Lissette BCA, CMP, 62119-2 #### [facility] ([id number]) [address] [place] [address] Anion gap [Moles/Vol] 7 mmol/L Normal 5-15 [facility] Comment on above: Performed By: #### C BCA, CMP, 71610-7 #### [facility] ([id number]) [address] [place] [address] AST [Catalytic activity/Vol] 24 U/L Normal 0-41 [facility] Comment on above: Performed By: #### C BCA, CMP, 05084-0 #### [facility] ([id number]) [address] [place] [address] Bilirubin [Mass/Vol] 0.7 mg/dL Normal 0.3-1.2 [facility] Comment on above: Performed By: #### C BCA, CMP, 64530-2 #### [facility] ([id number]) [address] [place] [address] Calcium [Mass/Vol] 9.7 mg/dL Normal 8.5-10.5 [facility] Comment on above: Performed By: #### C BCA, CMP, 77031-0 #### [facility] ([id number]) [address] [place] [address] Chloride [Moles/Vol] 100 mmol/L Normal 98-109 [facility] Comment on above: Performed By: #### C BCA, CMP, 33583-6 #### [facility] ([id number]) [address] [place] [address] CO2 [Moles/Vol] 32 mmol/L Normal 22-32 [facility] Comment on above: Performed By: #### C BCA, CMP, 35246-4 #### [facility] ([id number]) [address] [place] [address] Creatinine [Mass/Vol] 0.74 mg/dL Normal 0.40-1.00 [facility] Comment on above: Result Comment: METH OD TRACEABLE TO IDMS STANDARD Performed By: #### C BCA, CMP, 21201-0 #### [facility] ([id number]) [address] [place] [address] GFR/1.73 sq M.predicted among non-blacks MDRD (S/P/Bld) [Vol rate/Area] 88 mL/min/{1.73_m2} Normal >59 [facility] Comment on above: Result Comment: Reported eGFR is based on the CKD-EPI 2020 equation that does not use a race coefficient. Performed By: #### Lissette WEAVER CMP, 80472-8 #### [facility] ([id number]) [address] [place] [address] Glucose [Mass/Vol] 94 mg/dL Normal 65-99 [facility] Comment on above: Performed By: #### Lissette WEAVER CMP, 21548-2 #### [facility] ([id number]) [address] [place] [address] Potassium [Moles/Vol] 4.1 mmol/L Normal 3.5-5.0 [facility] Comment on above: Performed By: #### Lissette WEAVER CMP, 31001-0 #### [facility] ([id number]) [address] [place] [address] Protein [Mass/Vol] 7.4 g/dL Normal 6.0-8.0 [facility] Comment on above: Performed By: #### Lissette WEAVER CMP, 98061-8 #### [facility] ([id number]) [address] [place] [address] Sodium [Moles/Vol] 139 mmol/L Normal 134-146 [facility] Comment on above: Performed By: #### Lissette WEAVER CMP, 30614-6 #### [facility] ([id number]) [address] [place] [address] Urea nitrogen [Mass/Vol] 15 mg/dL Normal 5-27 [facility] Comment on above: Performed By: #### Lissette BCA, CMP, 86810-0 #### [facility] ([id number]) [address] [place] [address] Lipid 1996 panelon 4 Cholesterol [Mass/Vol] 238 mg/dL High 150-200 [facility] Comment on above: Performed By: #### Lissette BCA, CMP, 74466-4 #### [facility] ([id number]) [address] [place] [address] Cholesterol in HDL [Mass/Vol] 83 mg/dL Normal >39 [facility] Comment on above: Result Comment: HDL <40 mg/dL - High Risk HDL > or = 40mg/dL- Desirable HDL >60 mg/dL - Negative Risk Performed By: #### Lissette WEAVER, CMP, 87563-5 #### [facility] ([id number]) [address] [place] [address] Cholesterol in LDL [Mass/Vol] 136 mg/dL High <130 [facility] Comment on above: Result Comment: LDL <100 mg/dL - Desirable LDL >160 mg/dL - High Risk Performed By: #### Lissette BCA, CMP, 03439-0 #### [facility] ([id number]) [address] [place] [address] Cholesterol in VLDL [Mass/Vol] 19 mg/dL Normal 0-30 [facility] Comment on above: Performed By: #### Lissette BCA, CMP, 67104-1 #### [facility] ([id number]) [address] [place] [address] CHOLESTEROL:HDL 2.9 Normal 1.0-5.0 [facility] Comment on above: Performed By: #### C BCA, CMP, 05892-6 #### [facility] ([id number]) [address] [place] [address] Triglyceride [Mass/Vol] 95 mg/dL Normal 27-150 [facility] Comment on above: Performed By: #### C BCA, CMP, 92956-1 #### [facility] ([id number]) [address] [place] [address] 29on 07-14-2024 29 Addended by: Francesca RAWLS on: 07/14/2024 01:50 PM Modules accepted: Orders [facility] 06-28-2024 Refill [id number] Davida Larson ecca 1955 F Date Provider Department Center 06/28/2024 [facility] No family history on file Reason for Visit and Comments: Med Refill [[id number]] [facility] 06-23-2024 Refill [id number] [place] ecca 1955 F Date Provider [facility] No family history on file Reason for Visit and Comments: Med Refill [[id number]] [facility] 03-30-2024 Refill [id number] Davida Larson ecca 1955 F Date Provider Department [facility]20[facility] No family history on file Reason for Visit and Comments: Med Refill [[id number]] Normal [facility] CT facial bones vincent fatima CT facial bones wo [facility] [place] [address] CT Scan Report Signed Patient: Stephanie Larson MR#: [id number] : 1955 Acct:[id number] Age/Sex: 66 / F ADM Date: 09/12/22 Loc: CT Room: Type: [facility] Attending Dr: Rip Torres MD Copies to: Ramiro Torres MD Ordering Provider: Ramiro Torres MD Date of Service: 09/12/22 CT/CT facial bones wo con: PAIN IN MANDIBLE MAXILLOFACIAL CT WITHOUT CONTRAST: CLINICAL HISTORY: Implant work right mouth now with increased pain. COMPARISON: None TECHNIQUE: Spiral axial unenhanced images were obtained through the facial bones. Coronal and sagittal reconstructions were also reviewed. This CT exam was performed using one or more following dose reduction techniques: Automated exposure control, adjustment of the mA and/or kV according to patient size, or use of iterative reconstruction technique. FINDINGS: Nasal bones appear intact. The pterygoid plates and zygomatic arches appear intact. Nasal septum is relatively midline. No sinus disease is seen. Mastoid air cells are well pneumatized. Maxilla and mandible demonstrate no acute findings. Degenerative changes are seen involving the temporomandibular joints. No soft tissue swelling or bony destruction. Nasopharynx appears unremarkable. Oropharynx appears grossly unremarkable. No lymphadenopathy. CT/CT facial bones wo con IMPRESSION: NO ACUTE FINDINGS. Impression dictated by: Yo Singleton Jr., D.OBarbara09/12/2022 12:33 PM Dictation Location: [place] [address] Transcribed By: [facility] 09/12/22 1233 Dictated By: Yo Singleton Jr, DO 09/12/22 1230 Signed By: 09/12/22 1233 [facility] CULTURE, URINE, ROUTINEon CULTURE, URINE, ROUTINE SEE NOTE Normal [facility] Comment on above: Result Comment: CULTURE, URINE, ROUTINE Micro Number: [id number] Test Status: Final Specimen Source: URINE Specimen Quality: Adequate Result: Less than 10,000 CFU/mL of single Gram negative organism isolated. No further testing will be performed. If clinically indicated, recollection using a method to minimize contamination, with prompt transfer to Urine Culture Transport Tube, is recommended. NO COLLECTION DATE RECEIVED. WE HAVE USED THE DATE THE SPECIMEN WAS RECEIVED BY THIS LABORATORY THE COLLECTION DATE. IF THIS IS INCORRECT, PLEASE CONTACT CLIENT SERVICES. PHONE NUMBER: [phone] Performed By: #### 3 95 #### [facility] [address] [facility], [address] [place] [id number] Tile Layer: Hilario Ortiz MD ESOPHAGRAMon 02-24-2019 ESOPHAGRAM [facility] Department of Radiology [address] [place] [address] Patient Name: STEPHANIE LARSON : 1955 Sex: F Age: Race: White Pt. Location: Patient Status: O Ordered Date: 02/24/2019 5:00:00 AM Completed Date: 02/24/2019 08:20 AM Requesting Provider: KAYLA RAWLS Attending Provider: KAYLA RAWLS Report Copy To: WILLIAM PRESTON Signs & Symptoms: K21.9 Gastro-esophageal reflux disease without esophagitis I10 History: Marissa Comments: , Nothing by mouth after midnight; [facility] , Appointment Date: 02/24/2019 , Appointment Time: 800 , Nothing by mouth after midnight; [facility] , Appointment Date: 02/24/2019 , Appointment Time: 800 , , , Ordering Provider - KAYLA RAWLS MD , Exam: ESOPHAGRAM ESOPHAGRAM 02/24/2019 8:20 AM EDT SIGNS AND SYMPTOMS: K21.9 Gastro-esophageal reflux disease without esophagitis I10 TECHNOLOGIST COMMENTS: 1.2 minutes of fluoro used with Dr. Borrero for esophagram. QUESTION FOR THE RADIOLOGIST: , Nothing by mouth after midnight; [facility] , Appointment Date: 02/24/2019 , Appointment Time: 800 , Nothing by mouth after midnight; [facility] , Appointment Date: ...More In Sending System CONTRAST: Contrast: Effervescent Granules, 4 gram, Oral Contrast: UGI (thick) Barium Sulfate Powder for suspension, 8 ounce, Oral Contrast: UGI (thin) Barium Sulfate Powder for suspension, 7 ounce, Oral COMPARISON: CT February 15, 2015. FINDINGS: The esophagus is normal in course and caliber. Contrast flows normally through the esophagus. The mucosal pattern is within normal limits. No evidence of intraluminal mass or extrinsic mass effect. There is a moderate-sized paraesophageal hernia. Gastroesophageal reflux witnessed into the middle third of the esophagus. IMPRESSION: * Moderate paraesophageal hernia. Size does not appear significantly changed since prior CT February 15, 2015. * Moderate gastroesophageal reflux. Approved by:Errol Borrero on 02/24/2019 9:17 AM EDT. I, Naty Zhu, have reviewed the images and report and concur with these findings. Electronically signed by:Naty Zhu. Transcribed by: [email or web address], User Resident: ALEM BORRERO Electronically Signed by: NATY ZHU @ 02/24/2019 09:25 AM I personally read this/these film(s) with this resident Normal [facility] Comment on above: Order Comment: , Not kendrick by mouth after midnight; [facility] , Appointment Date: 02/24/2019 , Appointment Time: 800 , Nothing by mouth after midnight; [facility] , Appointment Date: 02/24/2019 , Appointment Time: 800 , , , Ordering Provider - KAYLA RAWLS MD , Vital Signs Date Time Vital Sign Value Performing Clinician Faci lity 02-25-2025 11:45-0400 Body height 157.5 cm [employer] Work Phone: [employer] 02-25-2025 11:45-0400 Body mass index (BMI) [Ratio] 21.77 kg/m2 [employer] Work Phone: [employer] 02-25-2025 11:45-0400 Body weight 53.98 kg Rogers Che DO [facility] 02-25-2025 11:45-0400 Diastolic blood pressure 62 mm[Hg] Rogers Che DO [facility] 02-25-2025 11:45-0400 Systolic blood pressure 110 mm[Hg] Rogers Che DO Work Phone: [facility] [employer] 12-22-2024 09:11-0400 Body height 157.5 cm Polina Almeida APRN-KICK B[employer]ER Work Phone: [facility] [employer] 12-22-2024 09:11-0400 Body mass index (BMI) [Ratio] 21.58 kg/m2 Polina Almeida APRN-[employer] Work Phone: [facility] [employer] 12-22-2024 09:11-0400 Body temperature 97.9 [degF] Polina Almeida APRN-[employer] Work Phone: [facility] [employer] 12-22-2024 09:11-0400 Body weight 53.52 kg Polina Almeida FLIGHT KITCHEN MANAGER-[employer] Work Phone: [facility] [employer] 12-22-2024 09:11-0400 Diastolic blood pressure 68 mm[Hg] Polina Almeida FLIGHT KITCHEN MANAGER-[employer] Work Phone: [facility] [employer] 12-22-2024 09:11-0400 Heart rate 80 /min Polina Almeida FLIGHT KITCHEN MANAGER-[employer]ER Work Phone[facility] 12-22-2024 09:11-0400 Respiratory rate 20 /min Polina Almeida FLIGHT KITCHEN MANAGER-[employer]ER Work Phone: [facility] [employer] [facility] 12-22-2024 09:11-0400 SaO2% (BldA) [Mass fraction] 97 % Polina Almeida FLIGHT KITCHEN MANAGER-K[employer]ER Work Phone: [facility] [employer] [facility] 12-22-2024 09:11-0400 Systolic blood pressure 120 mm[Hg] Polina Almeida FLIGHT KITCHEN MANAGER-[employer]ER Work Phone: [facility] 12-09-2024 13:42-0400 Body mass index (BMI) [Ratio] 21.45 kg/m2 Don Villanueva MD Work Phone: [facility] 12-09-2024 13:42-0400 Body temperature 97.59 [degF] Don Villanueva MD Work Phone: [facility] 12-09-2024 13:42-0400 Body weight 53.2 kg Don Villanueva MD Work Phone: [facility] 12-09-2024 13:42-0400 Diastolic blood pressure 78 mm[Hg] Don Villanueva MD Work Phone: [facility] 12-09-2024 13:42-0400 Heart rate 78 /min Don Villanueva MD Work Phone: [facility] 12-09-2024 13:42-0400 Respiratory rate 16 /min Don Villanueva MD Work Phone: [facility] 12-09-2024 13:42-0400 SaO2% (BldA) [Mass fraction] 95 % Don Villanueva MD Work Phone: [facility] 12-09-2024 13:42-0400 Systolic blood pressure 126 mm[Hg] Don Villanueva MD Work Phone: [facility] 10-28-2024 14:50-0500 Body mass index (BMI) [Ratio] 21.13 kg/m2 Don Villanueva MD Work Phone: [facility] 10-28-2024 14:50-0500 Body temperature 97.2 [degF] Don Villanueva MD Work Phone: [facility] 10-28-2024 14:50-0500 Body weight 52.4 kg Don Villanueva MD Work Phone: [facility] 10-28-2024 14:50-0500 Diastolic blood pressure 61 mm[Hg] Don Villanueva MD Work Phone: [facility] 10-28-2024 14:50-0500 Heart rate 55 /min Don Villanueva MD Work Phone: [facility] 10-28-2024 14:50-0500 Respiratory rate 16 /min Don Villanueva MD Work Phone: [facility] 10-28-2024 14:50-0500 SaO2% (BldA) [Mass fraction] 97 % Don Villanueva MD Work Phone: [facility] 10-28-2024 14:50-0500 Systolic blood pressure 129 mm[Hg] Don Villanueva MD Work Phone: [facility] 09-16-2024 15:51-0500 Body height 157.5 cm Don Villanueva MD Work Phone: [facility] Comment on above: pt reported 09-16-2024 15:51-0500 Body mass index (BMI) [Ratio] 21.21 kg/m2 Don Villanueva MD Work Phone: [facility] 09-16-2024 15:51-0500 Body temperature 97.81 [degF] Don Villanueva MD Work Phone: [facility] 09-16-2024 15:51-0500 Body weight 52.6 kg Don Villanueva MD Work Phone: [facility] 09-16-2024 15:51-0500 Diastolic blood pressure 68 mm[Hg] Don Villanueva MD Work Phone: [facility] 09-16-2024 15:51-0500 Heart rate 79 /min Don Villanueva MD Work Phone: [facility] 09-16-2024 15:51-0500 Respiratory rate 18 /min Don Villanueva MD Work Phone: [facility] 09-16-2024 15:51-0500 SaO2% (BldA) [Mass fraction] 98 % Don Villanueva MD Work Phone: [facility] 09-16-2024 15:51-0500 Systolic blood pressure 115 mm[Hg] Don Villanueva MD Work Phone: [facility] 09-08-2024 10:36-0500 Body height 160 cm Margy Foreman MD Work Phone: [facility] 09-08-2024 10:36-0500 Body mass index (BMI) [Ratio] 20.2 kg/m2 Margy Foreman MD Work Phone: [facility] 09-08-2024 10:36-0500 Body weight 51.71 kg Margy Foreman MD Work Phone: [facility] 09-08-2024 10:36-0500 Diastolic blood pressure 73 mm[Hg] Margy Foreman MD Work Phone: [facility] 09-08-2024 10:36-0500 Heart rate 68 /min Margy Foreman MD Work Phone: [facility] [employer] [facility] 09-08-2024 10:36-0500 SaO2% (BldA) [Mass fraction] 98 % Margy Foreman MD Work Phone: [facility] [employer] [facility] 09-08-2024 10:36-0500 Systolic blood pressure 114 mm[Hg] Margy Foreman MD Work Phone: [facility] [employer] [facility] 08-19-2024 10:43-0500 Body height 160 cm Rogers Che DO Work Phone: [facility] [employer] [facility] 08-19-2024 10:43-0500 Body mass index (BMI) [Ratio] 20.09 kg/m2 Rogers Che DO Work Phone: [facility] 08-19-2024 10:43-0500 Body temperature 98.1 [degF] Rogers Furlong DO Work Phone: [facility] 08-19-2024 10:43-0500 Body weight 51.44 kg Rogers Furlong DO Work Phone: [facility] 08-19-2024 10:43-0500 Diastolic blood pressure 62 mm[Hg] Rogers Furlong DO Work Phone: [facility] 08-19-2024 10:43-0500 Heart rate 70 /min Rogers Furlong DO Work Phone: [facility] 08-19-2024 10:43-0500 Respiratory rate 18 /min Rogers Furlong DO Work Phone: [facility] 08-19-2024 10:43-0500 SaO2% (BldA) [Mass fraction] 96 % Rogers Furlong DO Work Phone: [facility] 08-19-2024 10:43-0500 Systolic blood pressure 90 mm[Hg] Rogers Furlong DO Work Phone: [facility] 06-16-2024 14:12-0400 Body height 160 cm Rogers Furlong DO Work Phone: [facility] 06-16-2024 14:12-0400 Body mass index (BMI) [Ratio] 20.02 kg/m2 Rogers Furlong DO Work Phone: [facility] 06-16-2024 14:12-0400 Body temperature 98.8 [degF] Rogers Furlong DO Work Phone: [facility] 06-16-2024 14:12-0400 Body weight 51.26 kg Rogers Furlong DO Work Phone: [facility] 06-16-2024 14:12-0400 Diastolic blood pressure 58 mm[Hg] Rogers Furlong DO Work Phone: [facility] [employer] 06-16-2024 14:12-0400 Heart rate 78 /min Rogers Furlong DO Work Phone: [facility] [employer] 06-16-2024 14:12-0400 Respiratory rate 18 /min Rogers Tompkinslong DO Work Phone: [facility] [employer] 06-16-2024 14:12-0400 SaO2% (BldA) [Mass fraction] 98 % Rogers Tompkinslong DO Work Phone: [facility] [employer] 06-16-2024 14:12-0400 Systolic blood pressure 90 mm[Hg] Rogers Furlong DO Work Phone: [facility] [employer] [facility] 05-26-2024 09:29-0400 Body height 160 cm Margy Foreman MD Work Phone: [facility] [employer] 05-26-2024 09:29-0400 Body mass index (BMI) [Ratio] 19.89 kg/m2 Margy Foreman MD Work Phone: [facility] [employer] 05-26-2024 09:29-0400 Body weight 50.94 kg Margy Foreman MD Work Phone: [facility] [employer] [facility] 05-26-2024 09:29-0400 Diastolic blood pressure 74 mm[Hg] Margy Foreman MD Work Phone: [facility] [employer] 05-26-2024 09:29-0400 Heart rate 63 /min Margy Foreman MD Work Phone: [facility] [employer] [facility] 05-26-2024 09:29-0400 SaO2% (BldA) [Mass fraction] 99 % Margy Foreman MD Work Phone: [facility] [employer] [facility] 05-26-2024 09:29-0400 Systolic blood pressure 120 mm[Hg] Margy Foreman MD Work Phone: [facility] [employer] [facility] 02-25-2024 11:30-0400 Body height 160 cm Margy Foreman MD Work Phone: [facility] [employer] [facility] 02-25-2024 11:30-0400 Body mass index (BMI) [Ratio] 20.74 kg/m2 Margy Foreman MD Work Phone: [facility] [employer] [facility] 02-25-2024 11:30-0400 Body weight 53.12 kg Margy Foreman MD Work Phone: [facility] [employer] [facility] 02-25-2024 11:30-0400 Diastolic blood pressure 74 mm[Hg] Margy Foreman MD Work Phone: [facility] 02-25-2024 11:30-0400 Heart rate 72 /min Margy Foreman MD Work Phone: [facility] 02-25-2024 11:30-0400 SaO2% (BldA) [Mass fraction] 97 % Margy Foreman MD Work Phone: [facility] [employer] [facility] 02-25-2024 11:30-0400 Systolic blood pressure 111 mm[Hg] Margy Foreman MD Work Phone: [facility] 02-20-2024 14:05-0400 Body height 160 cm Rogers Furlong DO Work Phone: [facility] [employer] [facility] 02-20-2024 14:05-0400 Body mass index (BMI) [Ratio] 21.04 kg/m2 Rogers Furlong DO Work Phone: [facility] [employer] [facility] 02-20-2024 14:05-0400 Body weight 53.89 kg Rogers Furlong DO Work Phone: [facility] [employer] [facility] 02-20-2024 14:05-0400 Diastolic blood pressure 62 mm[Hg] Rogers Furlong DO Work Phone: [facility] [employer] [facility] 02-20-2024 14:05-0400 Systolic blood pressure 122 mm[Hg] Rogers Furlong DO Work Phone: [facility] [employer] [facility] 11-27-2023 19:20-0500 Body height [address] [facility] 11-27-2023 19:20-0500 Body mass index (BMI) [Ratio] 20.55 kg/m2 [facility] 11-27-2023 19:20-0500 Body weight 52.[address] [facility] 11-06-2023 12:36-0500 Body mass index (BMI) [Ratio] 21.23 kg/m2 Magdy Mai MD Work Phone: [facility] 11-06-2023 12:36-0500 Body weight 53.07 kg Magdy Mai MD Work Phone: [facility] 11-06-2023 12:36-0500 Diastolic blood pressure 68 mm[Hg] Magdy Mai MD Work Phone: [facility] 11-06-2023 12:36-0500 Systolic blood pressure 110 mm[Hg] Magdy Mai MD Work Phone: [facility] 10-22-2023 12:02-0500 Body height 160 cm Nereyda Singh MD Work Phone: [facility] 10-22-2023 12:02-0500 Body mass index (BMI) [Ratio] 20.64 kg/m2 Nereyda Singh MD Work Phone: [facility] 10-22-2023 12:02-0500 Body weight 52.84 kg Nereyda Singh MD Work Phone: [facility] 10-22-2023 12:02-0500 Diastolic blood pressure 62 mm[Hg] Nereyda Singh MD Work Phone: [facility] 10-22-2023 12:02-0500 Heart rate 75 /min Nereyda Singh MD Work Phone: [facility] 10-22-2023 12:02-0500 SaO2% (BldA) [Mass fraction] 97 % Nereyda Singh MD Work Phone: [facility] 10-22-2023 12:02-0500 Systolic blood pressure 120 mm[Hg] Nereyda Singh MD Work Phone: [facility] Encounters Encounter Date Encounter Type Care Provider Facility Start: 02-25-2025 End: 02-25-2025 Bamboo flowsheet Patience Mccormick FLIGHT KITCHEN MANAGER-KICK BOXER Work Phone: [facility] Start: 02-25-2025 End: 02-25-2025 Bamboo flowsheet Patience Mccormick FLIGHT KITCHEN MANAGER-KICK BOXER Work Phone: [facility] Start: 02-25-2025 End: 02-25-2025 ambulatory RICHFIELD Reinaldo [facility] Start: 02-25-2025 End: 02-25-2025 Patient encounter procedure Rogers Che DO Work Phone: [facility] - Family Medicine Comment on above: Medicare annual well ness visit, subsequent (Primary Dx); Screening for depression Start: 02-25-2025 End: 02-25-2025 Office outpatient visit 15 minutes Patience Mccormick FLIGHT KITCHEN MANAGER-KICK BOXER Work Phone: [facility] Comment on above: Seborrheic keratosis (Primary Dx); Inflamed seborrheic keratosis; Dermatographism Start: 02-25-2025 End: 02-25-2025 ambulatory PATIENCE MCCORMICK Not Available Start: 01-29-2025 End: 01-29-2025 Refill Rogers Che DO Work Phone: [facility] Comment on above: Mild major depressio n Start: 12-25-2024 End: 12-25-2024 Telephone encounter Yamilex KRUSE [facility] Start: 12-22-2024 End: 12-22-2024 Office outpatient visit 15 minutes Polina Almeida FLIGHT KITCHEN MANAGER-KICK BOXER Work Phone: [facility] Comment on above: Upper respiratory tr act infection, unspecified type (Primary Dx) Start: 12-22-2024 End: 12-22-2024 ambulatory [facility] Francesca [facility] Start: 12-21-2024 End: 12-21-2024 Orders Only Rogers Che DO Work Phone: [facility] Start: 12-09-2024 End: 12-09-2024 Office outpatient visit 15 minutes Don Villanueva MD Work Phone: Hematology/Oncology Comment on above: Neutropenia, unspeci fied type (HCC) (Primary Dx) Start: 12-09-2024 End: 12-09-2024 ambulatory ROGERS GEMA CHINEDU Facility:[facility] Start: 11-24-2024 End: 11-24-2024 ambulatory UNKNOWN PROVIDER [facility] Start: 11-19-2024 End: 11-19-2024 ambulatory ALLYRADHA MENENDEZ Facility:[facility] Start: 10-28-2024 End: 10-28-2024 Office outpatient visit 15 minutes Don Villanueva MD Work Phone: Hematology/Oncology Comment on above: Neutropenia, unspeci fied type (HCC) (Primary Dx); Personal history of other malignant neoplasms of lymphoid, hematopoietic and related tissues Start: 10-28-2024 End: 10-30-2024 Orders Only Rogers Che DO Work Phone: [facility] Comment on above: BMBX Start: 10-26-2024 End: 10-27-2024 Telephone encounter Jasmyn Moreira CMA [facility] Start: 10-15-2024 End: 10-28-2024 Telephone encounter Rogersbianca Che DO Work Phone: [facility] Start: 10-13-2024 End: 10-13-2024 ambulatory [facility] Start: 10-13-2024 End: 10-13-2024 ambulatory [facility] Start: 10-07-2024 End: 10-07-2024 ambulatory [facility] Start: 10-07-2024 End: 10-07-2024 ambulatory [facility] Start: 10-02-2024 End: 10-02-2024 ambulatory KAYLA [facility] Start: 09-17-2024 End: 09-17-2024 ambulatory ROGERS TOMPKINSJ CARLOS Facility:[facility] Start: 09-16-2024 End: 09-16-2024 ambulatory ROGERS TOMPKINSJ CARLOS Facility:[facility] Start: 09-16-2024 End: 09-16-2024 Office outpatient new 45 minutes Don Villanueva MD Work Phone: Hematology/Oncology Comment on above: Neutropenia, unspeci fied type (HCC) (Primary Dx); Other abnormality of red blood cells Start: 09-15-2024 End: 09-15-2024 ambulatory [facility] Start: 09-15-2024 End: 09-15-2024 Chart abstracting Don Villanueva MD Work Phone: Hematology/Oncology Start: 09-10-2024 End: 09-10-2024 ambulatory MAGDY MAI [facility] Start: 09-09-2024 End: 09-09-2024 Telephone encounter Margy Foreman MD Work Phone: [facility] - Sleep Disorders Comment on above: Sleep Lab (PAP) Start: 09-08-2024 End: 09-08-2024 ambulatory RAMIRO TORRES Not Available Start: 09-08-2024 End: 09-08-2024 Office outpatient visit 25 minutes Margy Foreman MD Work Phone: [facility] Comment on above: Obstructive sleep ap jesús (Primary Dx); Intolerance of continuous positive airway pressure (CPAP) ventilation; Gastroesophageal reflux disease, unspecified whether esophagitis present Start: 09-08-2024 End: 09-08-2024 ambulatory MARGY FOREMAN [facility] Start: 09-02-2024 End: 09-02-2024 Orders Only Rogers Najera Chinedu DO Work Phone: [facility] Comment on above: Leukopenia, unspecif ied type (Primary Dx) Start: 08-19-2024 End: 08-19-2024 ambulatory [facility] Start: 08-19-2024 End: 08-19-2024 ambulatory [facility] Start: 08-19-2024 End: 08-19-2024 Office outpatient visit 25 minutes [facility] Work Phone: [facility] Comment on above: Mild major depressio n (CMS-HCC) (Primary Dx); Gastroesophageal reflux disease, unspecified whether esophagitis present; Hypercholesterolemia; Leukopenia, unspecified type Start: 07-22-2024 End: 07-22-2024 Telephone encounter Luisa Sunshine LPN [facility] Start: 06-25-2024 End: 06-25-2024 [email or web address] Patience A Felter FLIGHT KITCHEN MANAGER-KICK BOXER Work Phone: [facility] Start: 06-25-2024 End: 06-25-2024 [email or web address] Patience A Felter FLIGHT KITCHEN MANAGER-KICK BOXER Work Phone: [facility] Start: 06-25-2024 End: 06-25-2024 Office outpatient visit 25 minutes Patience Allison Felter FLIGHT KITCHEN MANAGER-KICK BOXER Work Phone: [facility] Comment on above: Seborrheic keratosis (Primary Dx); Lentigines; Capillary angioma; Rash and other nonspecific skin eruption Start: 06-25-2024 End: 06-25-2024 ambulatory PATIENCE Allison FELTER Not Available Start: 06-16-2024 End: 06-16-2024 Office outpatient visit 15 minutes [facility] Work Phone: [facility] Comment on above: History of celluliti s (Primary Dx); Irritant contact dermatitis due to other chemical products Start: 06-16-2024 End: 06-16-2024 ambulatory [facility] Start: 06-05-2024 End: 06-05-2024 Telephone encounter Yamilex KRUSE [facility] Start: 05-26-2024 End: 05-26-2024 ambulatory MARGY FOREMAN [facility] Start: 05-26-2024 End: 05-26-2024 Office outpatient visit 15 minutes Margy Foreman MD Work Phone: [facility] Pulmonary/Sleep Medicine Comment on above: Obstructive sleep ap jesús (Primary Dx); Difficulty using continuous positive airway pressure (CPAP) full face mask; Other insomnia Start: 05-25-2024 End: 05-25-2024 Refill Rogers Che DO Work Phone: [facility] Family [facility] Start: 03-24-2024 End: 03-24-2024 ambulatory PATIENCE MCCORMICK Not Available Start: 03-04-2024 End: 03-04-2024 Telephone encounter Yamilex KRUSE [facility]Sleep [facility] Start: 02-25-2024 End: 02-25-2024 Office outpatient visit 15 minutes Margy Foreman MD Work Phone: [facility] Pulmonary/Sleep Medicine Comment on above: Obstructive sleep ap jesús (Primary Dx); Hypersomnia; Other insomnia Start: 02-20-2024 End: 02-20-2024 Patient encounter procedure Rogers Che DO Work Phone: [facility] Internal Medicine - Family Medicine Comment on above: Medicare annual well ness visit, subsequent (Primary Dx); Screening for depression Start: 01-02-2024 Telephone encounter Ligia [facility]edic[facility] Start: 12-23-2023 Telephone encounter Ligia sterling [facility] Start: 11-27-2023 End: 11-27-2023 Clinical Support Nereyda Singh MD Work Phone: [facility] - Sleep Disorders Comment on above: Obstructive sleep ap jesús Start: 11-27-2023 End: 11-29-2023 ambulatory NEREYDA SINGH [facility] Start: 11-06-2023 End: 11-06-2023 Office outpatient visit 10 minutes Magdy Mai MD Work Phone: [facility] Comment on above: Urinary urgency (Yvonne sofiya Dx); Urge incontinence; Encounter for gynecological examination without abnormal finding; Screening for malignant neoplasm of cervix; Encounter for screening mammogram for malignant neoplasm of breast Start: 11-06-2023 End: 11-06-2023 Patient encounter status Magdy Mai MD Work Phone: [facility] Start: 10-23-2023 Telephone encounter Nereyda bishop MD Work Phone: [facility] - Sleep Disorders Comment on above: Sleep Lab (HST) Start: 10-22-2023 End: 10-22-2023 Office outpatient new 45 minutes Nereyda Singh MD Work Phone: [facility]Sleep [facility] Comment on above: Obstructive sleep ap jesús (Primary Dx); Other fatigue; Hypersomnia; Trouble getting to sleep Start: 09-24-2023 Orders Only Rogers Reinaldo may DO Work Phone: [facility] Internal [facility] - Family Medicine Comment on above: Mild major depressio n ([facility] Start: 09-12-2022 End: 09-12-2022 ambulatory Rogers Clarimedixlong Facility:[facility] Start: 09-12-2022 End: 09-12-2022 ambulatory DO Rogers Dcikensng Work Phone: [facility] Work Phone: Start: 09-12-2022 End: 09-12-2022 Patient encounter procedure DO Rogers Dickensng Work Phone: [facility] [place] Procedures Date Procedure Procedure Detail Performing Clinician Start: 02-25-2025 CRYOTHERAPY SKIN LESION Patience Mccormick FLIGHT KITCHEN MANAGER-KICK BOXER Work Phone: Start: 02-25-2025 Adult depression screening assessment Rogers Che DO Work Phone: Start: 12-22-2024 Follow-up visit Follow-up POLINA ALMEIDA Start: 12-22-2024 Adult depression screening assessment Polina Almeida FLIGHT KITCHEN MANAGER-KICK BOXER Work Phone: Start: 09-10-2024 Mammography Jasmyn cary [employer]IPE [employer]ER Start: 08-19-2024 Lipid 1996 panel - S lisa or Plasma Don Villanueva MD Work Phone: Start: 02-20-2024 Adult depression screening assessment Rogers Dickensng DO Work Phone: Start: 09-09-2023 Mammography Rogers Tompkins long DO Work Phone: Start: 08-07-2023 Adult depression screening assessment Rogers Turnerlong DO Work Phone: Start: 09-12-2022 CT of facial bones without contrast DO [employer] Work Phone: Start: 01-03-2022 Colonoscopy Rogers Tompkins long DO Work Phone: Plan of Treatment Date Care Activity Detail Author Start: 03-12-2033 DTaP,Tdap and Td Vaccines (2 - Td or Tdap) DTaP,Tdap and Td Vaccines (2 - Td or Tdap) [facility] Start: 03-12-2033 Urine microalbumin profile DTaP,Tdap,Td Vaccine (2 - Td or Tdap) [facility] Start: 01-04-2032 Screening for malignant neoplasm of colon [facility] Start: 08-19-2029 Lipid panel Lipid Screening [facility] Start: 10-28-2027 Diabetes Screening Diabetes Screening [facility] Start: 08-19-2027 Diabetes Screening Diabetes Screening [facility] Start: 03-01-2026 End: 03-01-2026 Patient encounter procedure 03/01/2026 1:20 PM EDT Office Visit [facility] Internal [facility] - Family Medicine [address] [place] [address] [facility] Start: 02-25-2026 Adult BMI Screening Adult BMI Screening [facility] Start: 02-25-2026 Depression Screening Depression Screening [facility] Start: 02-25-2026 Fall Risk Screening Fall Risk Screening [facility] Start: 02-25-2026 Medicare Annual Wellness Visit Medicare Annual Wellness Visit [facility] Start: 12-22-2025 Adult BMI Screening Adult BMI Screening [facility] Start: 12-22-2025 Depression Screening Depression Screening [facility] Start: 12-22-2025 Fall Risk Screening Fall Risk Screening [facility] Start: 12-22-2025 Tobacco Screening Tobacco Screening [facility] Start: 09-10-2025 Adult BMI Screening Adult BMI Screening [facility] Start: 09-10-2025 Screening for malignant neoplasm of breast [facility] Start: 09-08-2025 Adult BMI Screening Adult BMI Screening [facility] Start: 09-08-2025 Tobacco Screening Tobacco Screening [facility] Start: 08-19-2025 Adult BMI Screening Adult BMI Screening [facility] Start: 08-19-2025 Tobacco Screening Tobacco Screening [facility] Start: 08-19-2025 End: 08-19-2025 Patient encounter procedure 08/19/2025 10:30 AM EST Office Visit [facility] Internal [facility] - Family Medicine [address] [place] [address] Rogers Che DO [address], [facility] [place] [address] [facility] - Family Medicine Start: 07-07-2025 End: 07-07-2025 Follow-up encounter 07/07/2025 2:00 PM EDT Visit (SP) Office Hematology/Oncology [address] [place] [address] Don Villanueva MD [address] [place] [address] 6 month follow up with lab Hematology/Oncology Comment on above: 6 month follow up with lab Start: 07-07-2025 End: 07-07-2025 Patient encounter procedure 07/07/2025 1:45 PM EDT Office Visit [facility] [address] [place] [address] 6 month follow up with lab [facility] Comment on above: 6 month follow up with lab Start: 06-28-2025 End: 06-28-2025 Patient encounter procedure 06/28/2025 10:50 AM EDT Office Visit [facility] [address] [place] [phone] Patience MccormickPABLO-KICK BOXER [address] [place] [address] [facility] Start: 06-16-2025 Adult BMI Screening Adult BMI Screening [facility] Start: 06-16-2025 Tobacco Screening Tobacco Screening [facility] Start: 05-31-2025 Influenza vaccination Influenza Vaccine [facility] Start: 05-26-2025 Adult BMI Screening Adult BMI Screening [facility] Start: 05-26-2025 Tobacco Screening Tobacco Screening [facility] Start: 03-23-2025 End: 03-23-2025 Patient encounter procedure 03/23/2025 10:45 AM EDT Office Visit [facility] [address] [place] [address] Margy Foreman MD [address] [facility] [place] [id number] [facility] Start: 02-25-2025 End: 02-25-2025 Patient encounter procedure 02/25/2025 11:40 AM EDT Office Visit [facility] [address] [place] [address] [facility] Start: 02-24-2025 Adult BMI Screening Adult BMI Screening [facility] Start: 02-24-2025 Tobacco Screening Tobacco Screening [facility] Start: 02-19-2025 Adult BMI Screening Adult BMI Screening [facility] Start: 02-19-2025 Depression Screening Depression Screening [facility] Start: 02-19-2025 Fall Risk Screening Fall Risk Screening [facility] Start: 02-19-2025 Medicare Annual Wellness Visit Medicare Annual Wellness Visit [facility] Start: 12-22-2024 End: 12-22-2024 Patient encounter procedure 12/22/2024 9:00 AM EDT Office Visit [facility] - Family Medicine [address] [place] [phone] Polina Almeida, FLIGHT KITCHEN MANAGER-KICK BOXER [address] [place] [phone] [facility] Internal Medicine - Family Medicine Start: 12-09-2024 End: 12-09-2024 Follow-up encounter 12/09/2024 2:00 PM EDT Visit (SP) Office Hematology/Oncology [address] [place] [place] [address] Don Villanueva MD [address] [place] [place] [address] 6 week follow up Hematology/Oncology Comment on above: 6 week follow up Start: 12-09-2024 End: 12-09-2024 Patient encounter procedure 12/09/2024 1:45 PM EDT Office Visit [facility] [address] [place] [address] lab [facility] Comment on above: lab Start: 11-27-2024 Adult BMI Screening Adult BMI Screening [facility] Start: 11-27-2024 Tobacco Screening Tobacco Screening [facility] Start: 11-19-2024 End: 11-19-2024 Admission to same day surgery center 11/19/2024 11:30 AM EST - 11/19/2024 12:30 PM EST Surgery [facility] [address] [place] [address] [place] [address] [place] [address] DIAGNOSTIC BONE MARROW BIOPSY(IES) [facility] Comment on above: DIAGNOSTIC BONE MARROW BIOPSY(IES) Start: 11-19-2024 End: 11-19-2024 Diagnostic bone marrow biopsies DIAGNOSTIC BONE MARROW BIOPSY(IES) Neutropenia, unspecified type (HCC) 11/19/2024 11:30 AM EST [facility] Start: 11-19-2024 Subsequent hospital visit by physician 11/19/2024 11:30 AM EST Hospital Encounter [facility] [address] [place] [address] [place] [address] [place] [address] Neutropenia, unspecified type (HCC) [D70.9] [facility] Comment on above: Neutropenia, unspecified type (HCC) [D70 .9] Start: 11-18-2024 End: 11-27-2025 Guidance for biopsy of Bone marrow IMAGING GUIDED BIOPSY BONE MARROW (HEMATOLOGY) Radiology Routine Neutropenia, unspecified type (HCC) Expected: 11/18/2024 (Approximate), Expires: 11/27/2025 [facility] Comment on above: Expected: 11/18/2024 (Approximate), Expi res: 11/27/2025 Start: 11-11-2024 End: 02-10-2025 T-CELL RECEPTOR GENE (TCR-G) BONE MARROW T-CELL RECEPTOR GENE (TCR-G) BONE MARROW Lab Routine Neutropenia, unspecified type (HCC) Personal history of other malignant neoplasms of lymphoid, hematopoietic and related tissues Expected: 11/11/2024, Expires: 02/10/2025 [facility] Comment on above: Expected: 11/11/2024, Expires: Start: 10-28-2024 End: 10-28-2024 Follow-up encounter 10/28/2024 3:00 PM EST Visit (SP) Office Hematology/Oncology [address] [place] [address] [place] [address] Don Villanueva MD [address] [place] [address] 6 week follow up Hematology/Oncology Comment on above: 6 week follow up Start: 10-28-2024 End: 01-27-2025 CBC W Auto Differential panel - Blood COMPLETE BLOOD COUNT AND DIFFERENTIAL Lab Routine Neutropenia, unspecified type (HCC) Expected: 10/28/2024, Expires: 01/27/2025 [facility] Work Phone: Comment on above: Expected: 10/28/2024, Expires: Start: 10-22-2024 Adult BMI Screening Adult BMI Screening [facility] Start: 10-22-2024 Tobacco Screening Tobacco Screening [facility] Start: 09-30-2024 Advance Directive Discussion Advance Directive Discussion [facility] Start: 09-17-2024 End: 09-17-2024 Patient encounter procedure 09/17/2024 10:00 AM EST Office Visit [facility] [address] [address] LAB [facility] Comment on above: LAB Start: 09-16-2024 End: 09-16-2024 ambulatory 09/16/2024 4:00 PM EST Visit (SP) Office Hematology/Oncology [address] [place] [address] Don Villanueva MD [address] [address] Rogers Che DX: Leukopenia Hematology/Oncology Comment on above: Ref by Dr Rogers Che DX: Leukopenia Start: 09-16-2024 End: 12-16-2024 CBC W Auto Differential panel - Blood COMPLETE BLOOD COUNT AND DIFFERENTIAL Lab Routine Neutropenia, unspecified type (HCC) Expected: 09/16/2024, Expires: 12/16/2024 [facility] Work Phone: Comment on above: Expected: 09/16/2024, Expires: Start: 09-16-2024 End: 12-16-2024 Cobalamin (Vitamin B12) [Mass/volume] in Serum or Plasma VITAMIN B12 Lab Routine Neutropenia, unspecified type (HCC) Expected: 09/16/2024, Expires: 12/16/2024 [facility] Comment on above: Expected: 09/16/2024, Expires: Start: 09-16-2024 End: 12-16-2024 Comprehensive metabolic 2000 panel - Serum or Plasma COMPREHENSIVE METABOLIC PANEL Lab Routine Neutropenia, unspecified type (HCC) Expected: 09/16/2024, Expires: 12/16/2024 [facility] Comment on above: Expected: 09/16/2024, Expires: Start: 09-16-2024 End: 12-16-2024 COPPER BLOOD COPPER BLOOD Lab Routine Neutropenia, unspecified type (HCC) Expected: 09/16/2024, Expires: 12/16/2024 [facility] Comment on above: Expected: 09/16/2024, Expires: Start: 09-16-2024 End: 12-16-2024 Ferritin [Mass/volume] in Serum or Plasma FERRITIN Lab Routine Neutropenia, unspecified type (HCC) Other abnormality of red blood cells Expected: 09/16/2024, Expires: 12/16/2024 [facility] Comment on above: Expected: 09/16/2024, Expires: Start: 09-16-2024 End: 12-16-2024 Folate [Mass/volume] in Serum or Plasma FOLATE, SERUM Lab Routine Neutropenia, unspecified type (HCC) Expected: 09/16/2024, Expires: 12/16/2024 [facility] Comment on above: Expected: 09/16/2024, Expires: Start: 09-16-2024 End: 12-16-2024 Iron and Iron binding capacity panel - Serum or Plasma IRON AND TIBC Lab Routine Neutropenia, unspecified type (HCC) Other abnormality of red blood cells Expected: 09/16/2024, Expires: 12/16/2024 [facility] Comment on above: Expected: 09/16/2024, Expires: Start: 09-16-2024 End: 12-16-2024 Nuclear Ab [Presence] in Serum by Immunoassay ARLEY BLOOD Lab Routine Neutropenia, unspecified type (HCC) Expected: 09/16/2024, Expires: 12/16/2024 [facility] Comment on above: Expected: 09/16/2024, Expires: Start: 09-16-2024 End: 12-16-2024 Zinc [Mass/volume] in Serum or Plasma ZINC BLD Lab Routine Neutropenia, unspecified type (HCC) Expected: 09/16/2024, Expires: 12/16/2024 [facility] Comment on above: Expected: 09/16/2024, Expires: 5 Start: 09-10-2024 End: 12-30-2024 DBT Breast - bilateral screening Bilateral screening mammogram with tomosynthesis Imaging Routine Encounter for screening mammogram for malignant neoplasm of breast Expected: 09/10/2024, Expires: 12/30/2024 [facility] Work Phone: Comment on above: Expected: 09/10/2024, Expires: 5 Start: 09-10-2024 Subsequent hospital visit by physician 09/10/2024 11:30 AM EST Hospital Encounter [facility] - Mammography/DEXA Imaging [address] [place] [id number] [facility] - Mammography/DEXA Imaging Start: 09-09-2024 Adult BMI Screening Adult BMI Screening [facility] Start: 09-09-2024 Screening for malignant neoplasm of breast [facility] Start: 09-08-2024 End: 09-08-2024 Patient encounter procedure 09/08/2024 10:30 AM EST Office Visit [facility] [address] [place] [address] Margy Foreman MD [address] [place] [address] [facility] Start: 08-19-2024 End: 08-19-2024 Patient encounter procedure 08/19/2024 10:30 AM EST Office Visit [facility] Internal [facility] - Family Medicine [address] [place] [phone] Rogers Che DO [address] [facility] [place] [address] [facility] Start: 08-07-2024 Depression Screening Depression Screening [facility] Start: 08-07-2024 Tobacco Screening Tobacco Screening [facility] Start: 06-25-2024 End: 06-25-2024 Patient encounter procedure [facility] Comment on above: Arrived Start: 06-02-2024 End: 06-02-2024 Patient encounter procedure 06/02/2024 10:30 AM EDT Office Visit [facility] [address] [place] [id number] Margy Foreman MD [address] [address] [facility] Start: 05-31-2024 Covid-19 Vaccine ( season) Covid-19 Vaccine ( season) [facility] Start: 05-31-2024 Covid-19 Vaccine ( season) Covid-19 Vaccine ( season) [facility] Start: 05-31-2024 COVID-19 Vaccine ( season) COVID-19 Vaccine ( season) [facility] Start: 05-31-2024 COVID-19 Vaccine ( season) COVID-19 Vaccine ( season) [facility] Start: 05-31-2024 Influenza vaccination [facility] Start: 05-26-2024 End: 05-26-2024 Patient encounter procedure 05/26/2024 9:15 AM EDT Office Visit [facility] [address] [place] [address] Margy Foreman MD [address] [phone] [facility] Start: 04-03-2024 Fall Risk Screening Fall Risk Screening [facility] Start: 02-25-2024 End: 02-25-2024 Patient encounter procedure 02/25/2024 11:30 AM EDT Office Visit [facility] [address] [place] [address] Margy Foreman MD [address] [place] [address] [facility] Start: 02-20-2024 End: 02-20-2024 Patient encounter procedure 02/20/2024 2:20 PM EDT Office Visit [facility] - Family Medicine [address] [place] [address] [facility] Start: 02-15-2024 Medicare Annual Wellness Visit Medicare Annual Wellness Visit 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 Start: 2019 Screening for osteoporosis Bone Density Screening [facility] Start: 1999 Screening for malignant neoplasm of colon [facility] Start: 1972 Anxiety Screening Anxiety Screening [facility] Start: 1972 Depression Screening Depression Screening [facility] Start: 1972 Hepatitis C screening Hepatitis C Screening [facility] Start: 1954 Screening for malignant neoplasm of colon [facility] End: 08-19-2025 CBC W Auto Differential panel - Blood CBC auto differential Lab Routine Leukopenia, unspecified type 1 Occurrences starting 08/19/2024 until 08/19/2025 [employer] Comment on above: 1 Occurrences starting 08/19/2024 until 08/19/2025 CBC W Auto Differential panel - Blood COMPLETE BLOOD COUNT AND DIFFERENTIAL Lab Routine Neutropenia, unspecified type (HCC) 12/09/2024 2:08 PM EDT [facility] Work Phone: End: 08-19-2025 Comprehensive metabolic 2000 panel - Serum or Plasma Comprehensive metabolic panel Lab Routine Hypercholesterolemia 1 Occurrences starting 08/19/2024 until 08/19/2025 [employer] Work Phone: Comment on above: 1 Occurrences starting 08/19/2024 until 08/19/2025 End: 10-22-2024 Home sleep study Home sleep study Sleep Center Routine Obstructive sleep apnea 1 Occurrences starting 10/22/2023 until 10/22/2024 [employer] Work Phone: Comment on above: 1 Occurrences starting 10/22/2023 until 10/22/2024 End: 08-19-2025 Lipid panel Lipid panel Lab Routine Hypercholesterolemia 1 Occurrences starting 08/19/2024 until 08/19/2025 [employer] Comment on above: 1 Occurrences starting 08/19/2024 until 08/19/2025 End: 09-08-2025 Polysomnography 4 or more parameters with PAP titration Polysomnography 4 or more parameters with PAP titration Sleep Center Routine Obstructive sleep apnea 1 Occurrences starting 09/08/2024 until 09/08/2025 [employer] Work Phone: Comment on above: 1 Occurrences starting 09/08/2024 until 09/08/2025 Immunizations Immunization Date Immunization Notes Care Provider [facility] 07-30-2024 influenza, high dose seasonal, preservative-free Rogers Che DO Work Phone: [facility] 07-30-2024 influenza virus vacc ine, unspecified formulation Rogers Furlong DO Work Phone: [facility] 07-30-2023 RSV, bivalent, prote in subunit RSVpreF, diluent reconstituted, 0.5 mL, PF Rogers Furlong DO Work Phone: [facility] 07-17-2023 COVID-19, mRNA, LNP- S, PF, 30mcg/0.3mL Dose Rogers Furlong DO Work Phone: [facility] 07-01-2023 Influenza, High-dose , Quadrivalent Rogers Furlong DO Work Phone: [facility] 07-01-2023 influenza virus vacc ine, unspecified formulation Ligia Ordaz [facility] 03-12-2023 tetanus toxoid, redu kim diphtheria toxoid, and acellular pertussis vaccine, adsorbed Rogers Furlong DO Work Phone: [facility] 07-17-2022 Influenza, High-dose , Quadrivalent Rogers Furlong DO Work Phone: [facility] 06-26-2022 Covid-19, Mrna, Lnp- s, Bivalent, Pf, 50mcg/0.5ml or 25mcg/0.25ml Rogers Furlong DO Work Phone: [facility] 06-26-2022 SARS-COV-2 (COVID-19 ) Vaccine, Unspecified Rogers Furlong DO Work Phone: [facility] 07-07-2021 pneumococcal polysaccharide vaccine, 23 valent Rogers Furlong DO Work Phone: [facility] 06-19-2021 Influenza, High-dose , Quadrivalent Rogers Furlong DO Work Phone: [facility] 07-05-2020 pneumococcal conjuga te vaccine, 13 valent Rogers Furlong DO Work Phone: [facility] 06-23-2020 Influenza Vaccine, Quadrivalent, Adjuvanted Rogers Furlong DO Work Phone: [facility] 07-29-2019 zoster vaccine recombinant Rogers Furlong DO Work Phone: [facility] 07-03-2019 Seasonal, quadrivale nt, recombinant, injectable influenza vaccine, preservative free Rogers Furlong DO Work Phone: [facility] 06-29-2019 influenza, injectabl e, quadrivalent, preservative free Rogers Furlong DO Work Phone: [facility] 05-23-2019 zoster vaccine recombinant Rogers Furlong DO Work Phone: [facility] 07-07-2018 influenza, injectabl e, quadrivalent, preservative free Rogers Furlong DO Work Phone: [facility] 06-30-2018 influenza, injectabl e, quadrivalent, contains preservative Rogers Furlong DO Work Phone: [facility] 08-21-2017 Oral Polio Vaccine, Unspecified formulation Rogers Furlong DO Work Phone: [facility] 07-25-2016 Oral Polio Vaccine, Unspecified formulation Rogers Furlong DO Work Phone: [facility] 07-20-2016 influenza, seasonal, injectable, preservative free Rogers Furlong DO Work Phone: [facility] 07-18-2015 influenza, seasonal, injectable Rogers Furlong DO Work Phone: [facility] 06-30-2015 seasonal influenza, intradermal, preservative free Rogers Furlong DO Work Phone: [facility] 06-24-2013 influenza virus vacc ine, whole virus Rogers Furlong DO Work Phone: [facility] 07-01-2012 influenza virus vacc ine, whole virus Rogers Furlong DO Work Phone: [facility] 07-16-2011 influenza virus vacc ine, whole virus Rogers Furlong DO Work Phone: [facility] 07-12-2010 influenza virus vacc ine, whole virus Rogers Furlong DO Work Phone: [facility] 07-06-2009 influenza virus vacc ine, whole virus Rogers Furlong DO Work Phone: [facility] 07-16-2007 influenza virus vacc ine, whole virus Rogers Furlong DO Work Phone: [facility] Payers Date Payer Category Payer Self-pay [id number] 2022 Managed Care Other (unspecified) COMMERCIAL Member Subscriber Plan / Payer (Effective 2022-Present) Name: Stephanie Larson Relation to Subscriber: Self Name: Stephanie Larson Payer ID: Not on file Group ID: [id number] Type: Not on file Address: [address] [address] [id number] 2022 Unknown [id number] 2019 Private Health Insurance [id number] 2019 Unknown [id number] 2019 Medicare [id number] 2019 Medicare [id number] 1954 Unknown [id number] .1286 1954 Unknown [id number] [id number] .1286 1954 Unknown [id number] 2.16.840.1.953496.3.579.2 .1286 1954 Unknown [id number] [id number] .1286 1954 Unknown [id number] 2.16.840.1.000457.3.579.2 .1259 1954 Unknown [id number] 2.16.840.1.137302.3.579.2 .1259 1954 Unknown [id number] 2.16.840.1.531076.3.579.2 .1259 1954 Unknown [id number] 2.16.840.1.382114.3.579.2 .1259 1954 Unknown [id number] 2.16.840.1.906497.3.579.2 .1286 1954 Unknown [id number] 2.16.840.1.851401.3.579.2 .1286 1954 Unknown [id number] 2.16.840.1.751345.3.579.2 .1286 1954 Unknown [id number] 2.16.840.1.138978.3.579.2 .1286 1954 Unknown [id number] 2.16.840.1.321473.3.579.2 .1286 1954 Unknown [id number] [id number] .1286 Unknown [place] [employer] [id number] Unknown [id number] .531 Social History Date Type Detail Facility Tobacco smoking stat [facility] Unknown if ever smoked [facility] Work Phone: Start: 1955 Sex Assigned At Female [facility] Start: 02-19-2023 End: 06-12-2023 Tobacco smoking status NHIS Never smoked tobacco [facility] Start: 02-19-2023 End: 06-12-2023 Tobacco use and exposure Smokeless tobacco non-user [facility] Start: 11-06-2023 End: 12-22-2024 Alcohol intake Current drinker of alcohol (finding) [facility] Start: 02-14-2023 End: 11-06-2023 History of Social function [facility] Start: 02-14-2023 End: 11-06-2023 Alcohol Use Disorder Identification Test - Consumption [AUDIT-C] [facility] How often to you hav e a drink containing alcohol? Monthly or less [facility] How many standard dr inks containing alcohol do you have on a typical day? 1 or 2 [facility] How often do you hav e 6 or more drinks on 1 occasion? Less than monthly [facility] Start: 06-12-2023 Alcohol Comment Alcohol: 1 or 2 drinks on a typical day / 2 to 4 times a month. Caffeine: 1-2 cups/day [facility] Start: 1955 Sex Assigned At Not on file [facility] Tobacco smoking stat [facility] Tobacco smoking consumption unknown [facility] National Score (1-10 0), lower number is lower risk 88 [facility] Has the [employer], [employer], or water company threatened to shut off services in your home in past 12Mo No [facility] Are you now , , , , never or living with a partner? [facility] How often to you hav e a drink containing alcohol? Never [facility] How hard is it for y ou to pay for the very basics like food, housing, medical care, and heating Not very hard [facility] Do you feel stress - tense, restless, nervous, or anxious, or unable to sleep at night because your mind is troubled all the time - these days [OSQ] To some extent [facility] Start: 10-26-20[address] [facility] Start: 05-05-2015 Sex Female (finding) [facility] Do you feel stress - tense, restless, nervous, or anxious, or unable to sleep at night because your mind is troubled all the time - these days [OSQ] Very much [facility] Functional Status Date Assessment Result Facility 02-25-2025 Humiliation, Afraid, Rape, and Kick questionnaire [HARK] [facility] Clinical Notes 10-22-2023 to 02-25-2025 Rogers Che, DO - 02/25/2025 11:40 AM EDTNatalichintan Mccormick APRN-HUE - 02/25/2025 8:35 AM EDTTelephone Encounter - [facility] - 12/25/2024 9:33 AM EDTPatient Instructions Note Date & Type Note Facility 02-25-2025 History of Present illness Narrative Subjective SUBJECTIVE: Patient ID: Stephanie Larson is a 69 y.o. female who presents for a Medicare Annual Wellness exam. HPI The following portions of the patient's history were reviewed and updated as appropriate: allergies, current medications, past family history, past medical history, past social history, past surgical history and problem list. [employer] FLOWSHEET : Lifestyle Assessment Do you smoke or use smokeless tobacco?: No If you smoke or use smokeless tobacco, are you ready to quit?: NA Are you exposed to secondhand smoke?: No On average, how many drinks of alcohol do you consume in a week?: 1 or less Do you exercise for 30 or more minutes on average at least 3 days a week?: (!) Never Do you have any tooth, denture, or oral problems?: (!) Yes Do you snore or has anyone told you that you snore?: (!) Yes Do you try to eat a balanced diet?: Yes Do you experience leakage of urine, also known as urinary incontinence?: (!) Sometimes Do you have difficulty bathing?: No Do you have difficulty dressing?: No Do you have difficulty grooming?: No Do you have difficulty eating?: No Do you have difficulty getting out of a chair?: No Do you have difficulty walking?: No Do you have difficulty using the toilet?: No Do you have difficulty doing laundry?: No Do you have difficulty with housekeeping?: No Do you have difficulty preparing a meal?: No Do you have difficulty shopping?: No Do you have difficulty using transportation?: No Do you have difficulty paying bills?: No Do you have difficulty managing finances?: No Fall Risk Fall Risk Assessment Completed?: Yes Have you fallen in the past year?: No Are you worried about falling?: No Do you feel unsteady when standing or walking?: No Risk Stratification: Low Risk Depression Screening Little interest or pleasure in doing things: Not at all Feeling down, depressed, or hopeless: (!) Several days Trouble falling or staying asleep, or sleeping too much: (!) Several days Feeling tired or having little energy: (!) Several days Poor appetite or overeating: Not at all Feeling bad about yourself - or that you are a failure or have let yourself or your family down: Not at all Trouble concentrating on things, such as reading the newspaper or watching television: Not at all Moving or speaking so slowly that other people could have noticed. Or the opposite - being so fidgety or restless that you have been moving around a lot more than usual: Not at all Thoughts that you would be better off , or of hurting yourself in some way: Not at all PEG Scale What number best describes your pain on average in the past week?: 0 - No pain Safety Assessment Do you have throw rugs on the floor?: (!) Yes Do you feel safe at your home?: Yes Do you feel unsteady when walking?: No Are you having difficulty with driving?: No Do you have trouble seeing?: No Do you use a bath bar/seat?: No Do you use a raised toilet seat?: No Do you use a cane?: No Do you use a walker?: No Do you use a wheelchair?: No Hearing Assessment Do you strain or struggle to hear/understand conversations?: No Do you have trouble hearing the television or radio when others do not?: No Does your family ever voice concerns about your hearing?: No Do you wear hearing aid/s?: No Personal Health During the past 4 weeks, how would you rate your overall health?: Excellent Do you understand how to take all of your medications?: Yes How confident are you that you can control and manage most of your health problems?: Very confident In the past 12 months, how many times have you been hospitalized?: None End of Life Planning Do you have a living will?: Yes Do you have a durable power of consumer attorney?: Yes Cognitive Screening Do you have trouble remembering or recalling facts or events?: (!) Yes Do family members or caregivers report that you have difficulty remembering things?: No [employer] Normal REVIEW OF SYSTEMS: Review of Systems Objective PHYSICAL EXAMINATION: Vitals: 02/25/25 1145 BP: 110/62 Weight: 54 kg (119 lb) Height: 157.5 cm (5' 2 ) Physical Exam Assessment/Plan ASSESSMENT/PLAN Encounter Diagnoses Name Primary? Medicare annual wellness visit, subsequent Yes Screening for depression Health maintenance discussed. Cognitive evaluation did not reveal any impairment. Depression screen was negative. At least 3 minute spent administering and discussing. She has advanced directives in place. Return in about 1 year (around 02/25/2026). documented in this encounter [facility] [employer] 02-25-2025 History of Present illness Narrative Lesions: Location: Head, neck Duration: Years Quality: denies pain, denies itch, denies bleeding Associated symptoms: rough Treatments: none Lesion # 2: Location: Left thigh Duration: Years Quality: denies pain, denies itch, denies bleeding Associated symptoms: bleeding, non-healing Treatments: Neosporin Established patient All pertinent medical history, medications, and allergies were reviewed. General Exam: alert, oriented to person, place, and time, normal affect, well appearing Unaccompanied A focused exam completed based on patient reported problems, see below: Skin Exam 1. SEBORRHEIC KERATOSIS Right posterior scalp Stuck on verrucous, variably pigmented papules and plaques. Patient was counseled regarding these benign growths. Removal is normally not necessary, but they may be removed if they are symptomatic or for cosmetic reasons. 2. INFLAMED SEBORRHEIC KERATOSIS (2) Left Thigh - Anterior, Right Anterior Neck Inflamed seborrheic keratoses: pink and brown stuck on verrucous scaly papule with surrounding erythema and bloody crust. The patient was informed that symptomatic seborrheic keratoses are benign growths that become inflamed, itchy, tender, traumatized, caught on clothing, or bleed. Symptomatic lesions can be treated with cryotherapy or curretage. Thicker lesions treated with cryotherapy may require more than one treatment. The patient was instructed to notify the office if abnormal redness or tenderness develops at the treatment site. Cryotherapy today, see procedure note. Diagnosis: Inflamed seborrheic keratosis Indication: Inflamed Consent: Verbal consent was obtained and risks were discussed, including, but not limited to risks of scarring, darker or truck caterer pigmentary changes, recurrence, incomplete removal and infection. Method: Liquid nitrogen was used to treat the lesion(s) with two 5-10 second freeze-thaw cycles Number of lesions treated: 2 Post-procedure instructions: Instructions were given orally and in writing. The office will be contacted if the lesion fails to resolve despite treatment, or if a side effect develops such as abnormal crusting, scabbing, redness or tenderness Cryotherapy, skin lesion - Left Thigh - Anterior, Right Anterior Neck 3. DERMATOGRAPHISM Left Forearm - Anterior, Right Forearm - Anterior Linear whealed plaques induced by scratching Discussed this condition can be seasonal or a chronic issue. Recommend daily antihistamine, start Alva daily, and add benadryl at bedtime. Can add nighttime antihistamine if having symptoms at night as well. Notify office if flaring despite treatment or if excessive drowsiness occurs. Related Medications fexofenadine (Alva) 180 MG tablet Take 1 tablet daily, by mouth, 30 days Next Visit: as scheduled documented in this encounter [facility] 12-25-2024 Miscellaneous Notes Patient called office to cancel her appointment on 03/23/2025 with AD, patient stated that she returned her PAP machine and she does not wish to continue with us at this time. documented in this encounter [facility] 12-25-2024 Telephone encounter Note Patient called office to cancel her appointment on 03/23/2025 with AD, patient stated that she returned her PAP machine and she does not wish to continue with us at this time. [facility] 12-22-2024 History of Present illness Narrative Images from the original note were not included. [address] [place] [address] SUBJECTIVE: Patient ID: Stephanie Larson is a 69 y.o. female. Chief Complaint Patient presents with Follow-up Bronchitis Presents for follow up. Was seen at [place] [facility] for URI symptoms on 12-09-24. She was prescribed Medrol dose pack,Tessalon Perles, and Albuterol MDI. Today, she feels approximately 50% better. States her right ear has pain. This started yesterday. She continues with sinus pressure and congestion. She still has a cough. Sinus Problem This is a new problem. The current episode started 1 to 4 weeks ago. The problem has been waxing and waning since onset. There has been no fever. Associated symptoms include congestion, coughing, ear pain, headaches, a hoarse voice, sinus pressure and a sore throat. Pertinent negatives include no chills or shortness of breath. Treatments tried: Medrol dose pack. The treatment provided moderate relief. The following portions of the patient's history were reviewed and updated as appropriate: allergies, current medications, past family history, past medical history, past social history, past surgical history and problem list. Past Surgical History: Procedure Laterality Date BONE BIOPSY 11/[address] Dahl COLONOSCOPY N/A 01/03/2022 Performed by Terry Ronquillo MD at [facility] ESOPHAGOSCOPY / EGD FRACTURE SURGERY 1993 HERNIA REPAIR 2009 paraesophageal hernia, Dr. Rawls [facility] TOOTH ZOROASTRIAN TUBAL LIGATION 1982 Past Medical History: Diagnosis Date Bronchitis 11/2024 Hiatal hernia 09/2024 Leukopenia mild, chronic Osteoporosis Torus palatinus UTI (urinary tract infection) recurrent Immunization History Administered Date(s) Administered COVID-19, mRNA, LNP-S, PF, 100mcg/0.5mL Dose 11/10/2020, 12/08/2020, 07/24/2021, 01/07/2022 COVID-19, mRNA, LNP-S, PF, 30mcg/0.3mL Dose 07/17/2023 Covid-19, Mrna, Lnp-s, Bivalent, Pf, 50mcg/0.5ml or 25mcg/0.25ml 06/26/2022 Influenza (IM) Preservative Free 07/20/2016 Influenza High Dose Preservative Free IM 07/30/2024 Influenza Split Preservative Free ID 06/30/2015 Influenza Vaccine, Quadrivalent, Adjuvanted 06/23/2020 Influenza Whole 07/16/2007, 07/06/2009, 07/12/2010, 07/16/2011, 07/01/2012, 06/24/2013 Influenza, High-dose, Quadrivalent 06/19/2021, 07/17/2022, 07/01/2023 Influenza, Im Trivalent Preservative 07/18/2015 Influenza, Injectable, Quadrivalent 06/30/2018 Influenza, Injectable, quadrivalent (PF) 07/07/2018, 06/29/2019 Influenza, Recombinant, Quadrivalent, Injectable, Preserv 07/03/2019 Opv, Unspecified 07/25/2016, 08/21/2017 Pneumococcal Conjugate 13-Valent 07/05/2020 Pneumococcal Polysaccharide 07/07/2021 RSV, bivalent, protein subunit RSVpreF, diluent reconstituted, 0.5 mL, PF 07/30/2023 SARS-COV-2 (COVID-19) Vaccine, Unspecified 06/26/2022 Tdap 03/12/2023 Zoster Vaccine Recombinant 05/23/2019, 07/29/2019 REVIEW OF SYSTEMS: Review of Systems Constitutional: Negative for chills and fever. HENT: Positive for congestion, ear pain, hoarse voice, postnasal drip, sinus pressure, sinus pain and sore throat. Eyes: Negative for visual disturbance. Respiratory: Positive for cough. Negative for chest tightness and shortness of breath. Cardiovascular: Negative for chest pain and palpitations. Gastrointestinal: Negative. Endocrine: Negative. Genitourinary: Negative for menstrual problem and pelvic pain. Musculoskeletal: Negative. Skin: Negative. Allergic/Immunologic: Negative. Neurological: Positive for headaches. Negative for syncope and facial asymmetry. Hematological: Does not bruise/bleed easily. Psychiatric/Behavioral: Negative. PHYSICAL EXAMINATION: Vitals: 12/22/24 0911 BP: 120/68 BP Site: Left Arm BP Postition: Sitting BP CUFF SIZE: M (9-13 inches) Pulse: 80 Resp: 20 Temp: 36.6 C (97.9 F) TempSrc: Oral SpO2: 97% Weight: 53.5 kg (118 lb) Height: 157.5 cm (5' 2.01 ) Physical Exam Vitals and nursing note reviewed. Constitutional: General: She is not in acute distress. Appearance: She is well-developed. She is not diaphoretic. HENT: Head: Normocephalic and atraumatic. Right Ear: External ear normal. Tympanic membrane is erythematous and bulging. Left Ear: External ear normal. Tympanic membrane is erythematous. Nose: Nasal tenderness, mucosal edema and congestion present. Right Turbinates: Swollen. Left Turbinates: Swollen. Right Sinus: Frontal sinus tenderness present. Left Sinus: Frontal sinus tenderness present. Mouth/Throat: Mouth: Mucous membranes are moist. Pharynx: Posterior oropharyngeal erythema and postnasal drip present. No oropharyngeal exudate. Eyes: General: Right eye: No discharge. Left eye: No discharge. Conjunctiva/sclera: Conjunctivae normal. Pupils: Pupils are equal, round, and reactive to light. Neck: Thyroid: No thyromegaly. Vascular: No JVD. Cardiovascular: Rate and Rhythm: Normal rate and regular rhythm. Heart sounds: Normal heart sounds. No murmur heard. No friction rub. No gallop. Pulmonary: Effort: Pulmonary effort is normal. Breath sounds: Normal breath sounds. Abdominal: General: Bowel sounds are normal. There is no distension. Palpations: Abdomen is soft. There is no mass. Tenderness: There is no abdominal tenderness. Musculoskeletal: General: Normal range of motion. Cervical back: Normal range of motion and neck supple. Lymphadenopathy: Cervical: No cervical adenopathy. Skin: General: Skin is warm and dry. Capillary Refill: Capillary refill takes less than 2 seconds. Neurological: Mental Status: She is alert and oriented to person, place, and time. Deep Tendon Reflexes: Reflexes are normal and symmetric. Psychiatric: Mood and Affect: Mood normal. Behavior: Behavior normal. Thought Content: Thought content normal. Judgment: Judgment normal. ASSESSMENT/PLAN: Anjali was seen today for follow-up. Diagnoses and all orders for this visit: Upper respiratory tract infection, unspecified type - azithromycin (ZITHROMAX) 250 mg tablet; Take 2 tablets the first day, then 1 tablet daily for 4 days. Cool mist humidification for congestion, warm salt water gargles as needed for sore throat. Motrin or Tylenol as needed per extermination inspector guidelines for fever or pain. May continue Tessalon Perles and Albuterol MDI as ordered by Maryann Chopra as directed. ALL QUESTIONS ANSWERED Total time spent was 25 minutes: Preparing to see the patient (e.g., review of tests) Obtaining and/or reviewing separately obtained history Performing a medically appropriate examination and/or evaluation Counseling and educating the patient/family/caregiver Ordering medications, tests, or procedures Follow-up: Next scheduled DAYANA Lora 12/22/24 0933 documented in this encounter [facility] 12-21-2024 History of Present illness Narrative Requests a permanent handicap parking placard documented in this encounter [facility] 12-09-2024 History of Present illness Narrative PATIENT NAME: Stephanie Larson CLINIC NO.: [id number] ATTENDING PHYSICIAN: Don Villanueva MD DATE OF SERVICE: 12/09/[address] Rogers Che MD ([facility]) [address] [facility] [address] [facility] [address] thank you for referring Stephanie Larson for an opinion regarding Leukopenia. Some of the elements of this note have been copied from my previous progress note dated 10/28/24. All the information has been reviewed carefully. CHIEF COMPLAINT: Leukopenia HPI: Stephanie Larson is a 68 year old year old female with GERD, depression referred to us for leukopenia. No smoking Occasionally drinks alcohol DEXA scan showed osteoporosis Uptodate with mammogram. CBC on 08/19/24 showed WBC 2.5 and ANC 1.0 No complaints 10/28/24: - Doing well - No major complaints - Denies infections 12/09/24: - BM biopsy showed Normocellular bone marrow with trilineage hematopoiesis - NGS studies showed BCORL1 - Normal cytogenetics - T cell receptor gene arrangement is negative. Current Outpatient Medications Medication Sig omeprazole (PRILOSEC) 40 mg capsule Take 40 mg by mouth once daily. vit C/E/Zn/coppr/lutein/zeaxan (PRESERVISION AREDS-2 ORAL) Take by mouth once daily. calcium carbonate/vitamin D3 (CALCIUM WITH VITAMIN D3 ORAL) Take by mouth once daily. ZINC ORAL Take by mouth once daily. esomeprazole (NEXIUM) 40 mg capsule Take 40 mg by mouth once daily. sertraline (ZOLOFT) 25 mg tablet Take 25 mg by mouth every morning. oxybutynin ER (DITROPAN XL) 10 mg 24 hr tablet TAKE 1 TABLET BY MOUTH ONCE DAILY DO NOT CRUSH CHEW OR SPLIT fexofenadine-pseudoephedrine (ALVA D) 60-120 mg per tablet Take 1 tablet by mouth once daily. No current facility-administered medications for this visit. ALLERGIES Allergen Reactions Ibuprofen Hives, Other: See Comments Also experiences sores in mouth after taking Ibuprofen Other Reaction(s): hives and sores, other Also experiences sores in mouth after taking Ibuprofen Other Reaction(s): other Also experiences sores in mouth after taking Ibuprofen Other Reaction(s): hives and sores, other Also experiences sores in mouth after taking Ibuprofen Other Reaction(s): other Morphine GI Upset, Other: See Comments, Vomiting Other Reaction(s): other, Unknown, Vomiting Other Reaction(s): Vomiting Other Reaction(s): other, Unknown, Vomiting Other Reaction(s): Vomiting PAST MEDICAL HISTORY Diagnosis Date Depression GERD (gastroesophageal reflux disease) Hiatal hernia Hypercholesterolemia Leukopenia PAST SURGICAL HISTORY Procedure Laterality Date PAST SURGICAL HISTORY OF EGD PAST SURGICAL HISTORY OF Tooth Post FAMILY HISTORY Problem Relation Age of Onset Hypertension Father Diabetes Father Social History Tobacco Use Smoking status: Never Smokeless tobacco: Never Substance Use Topics Alcohol use: Yes Drug use: Never REVIEW OF SYSTEMS GENERAL: No weight loss, malaise or fevers. No night sweats. HEENT: Negative for headaches, No changes in hearing or vision, no nose bleeds or other nasal problems. RESPIRATORY: Negative for cough, wheezing and shortness of breath CARDIOVASCULAR: Negative for chest pain, leg swelling and palpitations GI: Negative for abdominal discomfort, blood in stools or black stools and change in bowel habits : Negative for dysuria, frequency and incontinence MUSCULOSKELETAL: Negative for joint pain or swelling, back pain, and muscle pain. SKIN: Negative for lesions, rash, and itching. HEMATOLOGY/LYMPHOLOGY Negative for prolonged bleeding, bruising easily, and swollen nodes. NEURO: Negative for numbness or tingling of hands/feet. No weakness. PHYSICAL EXAMINATION: There were no vitals taken for this visit. There were no vitals taken for this visit. No data found for this vital: Wt General appearance:ECOG PERFORMANCE STATUS: 0- Fully active, able to carry on all pre-disease performance w/o restriction. Patient in NAD. Skin: Skin color, texture, turgor normal. No rashes or lesions. Eyes: Anicteric sclera. Pupils are equally round and reactive to light. Extraocular movements are intact. Breast: No palpable breast masses. No nipple change or discharge. Lymph Nodes: No cervical, supraclavicular, axillary or inguinal adenopathy. Oropharynx: Lips, mucosa, and tongue normal. Back: No pain to percussion. Negative SLR test Lungs clear to auscultation, No wheezing or rhonchi Heart: RRR without murmur, gallop, or rubs. Abdomen soft, non-tender. No masses, organomegaly Extremities: No deformities. No edema Neuro: Gait and speech normal. Reflexes normal and symmetric. Muscular strength intact. Sensation grossly intact. Rectal: Deferred : Deferred LABS: Glucose (mg/dL) Date Value 10/28/2024 87 Potassium (mmol/L) Date Value 10/28/2024 4.4 Sodium (mmol/L) Date Value 10/28/2024 140 Chloride (mmol/L) Date Value 10/28/2024 101 CO2 (mmol/L) Date Value 10/28/2024 28 Creatinine (mg/dL) Date Value 10/28/2024 0.74 BUN (mg/dL) Date Value 10/28/2024 12 10/01/2023 13 Anion Gap (mmol/L) Date Value 10/28/2024 11 Calcium, Total (mg/dL) Date Value 10/28/2024 9.5 Protein, Total (g/dL) Date Value 10/28/2024 7.2 Albumin (g/dL) Date Value 10/28/2024 4.5 Bilirubin, Total (mg/dL) Date Value 10/28/2024 0.3 Alkaline Phosphatase (U/L) Date Value 10/28/2024 85 AST (U/L) Date Value 10/28/2024 22 ALT (U/L) Date Value 10/28/2024 13 WBC Date Value Ref Range Status 11/19/2024 3.57 (L) 3.70 - 11.00 k/uL Final RBC Date Value Ref Range Status 11/19/2024 3.75 (L) 3.90 - 5.20 m/uL Final Hemoglobin Date Value Ref Range Status 11/19/2024 12.0 11.5 - 15.5 g/dL Final Hematocrit Date Value Ref Range Status 11/19/2024 35.9 (L) 36.0 - 46.0 % Final MCV Date Value Ref Range Status 11/19/2024 95.7 80.0 - 100.0 fL Final MCH Date Value Ref Range Status 11/19/2024 32.0 26.0 - 34.0 pg Final MCHC Date Value Ref Range Status 11/19/2024 33.4 30.5 - 36.0 g/dL Final RDW-CV Date Value Ref Range Status 11/19/2024 12.6 11.5 - 15.0 % Final Platelet Count Date Value Ref Range Status 11/19/2024 255 150 - 400 k/uL Final MPV Date Value Ref Range Status 11/19/2024 10.2 9.0 - 12.7 fL Final Abs Neut Date Value Ref Range Status 11/19/2024 1.62 1.45 - 7.50 k/uL Final Lymphocytes % Date Value Ref Range Status 11/19/2024 42.0 % Final Abs Lymph Date Value Ref Range Status 11/19/2024 1.50 1.00 - 4.00 k/uL Final Monocytes % Date Value Ref Range Status 11/19/2024 9.5 % Final Abs [place] Date Value Ref Range Status 11/19/2024 0.34 <0.87 k/uL Final Abs Eosin Date Value Ref Range Status 11/19/2024 0.05 <0.46 k/uL Final Basophils % Date Value Ref Range Status 11/19/2024 1.4 % Final Abs Baso Date Value Ref Range Status 11/19/2024 0.05 <0.11 k/uL Final PATH: IMAGING: ASSESSMENT AND PLAN: Stephanie Larson is a 68 year old year old female referred to us for leukopenia. PS 0 CBC on 08/19/24 showed WBC 2.5 and ANC 1.0 with a normal hemoglobin and platelets CBC on 09/17/24 showed ANC 1.0. - CBC on 10/28/24 showed ANC 0.8 PLAN: - CBC on 11/19/24 showed ANC 1.6 - BM biopsy in oct 2024 showed Normocellular bone marrow with trilineage hematopoiesis - NGS studies showed BCORL1. Normal cytogenetics. T cell receptor gene arrangement is negative - Monitor the mild chronic leukopenia for now. - All her questions answered in detail - F/u in [address] Rogers Che MD ([facility]) [address] [place] [address] thank you for allowing me to participate in Stephanie Larson care, if there are any questions or concerns please do not hesitate to contact me at the number below. I spent a total of 20 minutes on the date of the service which included preparing to see the patient, [id number] patient care, completing clinical documentation, obtaining and/or reviewing separately obtained history, performing a medically appropriate examination, counseling and educating the patient/family/caregiver, ordering medications, tests, or procedures, communicating with other HCPs (not separately reported), independently interpreting results (not separately reported), communicating results to the patient/family/caregiver, and care coordination (not separately reported). Don Villanueva MD. Hematology/Medical Oncology [place] [phone] CC: Clinical questionnaires incomplete due to Patient declined to complete or answer questions with nurse documented in this encounter [facility] 12-09-2024 Note HNO ID: [id number] Author: DON VILLANUEVA MD Service: ? Author Type: Physician Type: Progress Notes Filed: 12/09/2024 14:07 Note Text: PATIENT NAME: Stephanie Larson [facility] NO.: [id number] ATTENDING PHYSICIAN: Don Villanueva MD DATE OF SERVICE: 12/09/[address] Rogers Che MD ([facility]) [address] [place] [place] [address] thank you for referring Stephanie Larson for an opinion regarding Leukopenia. Some of the elements of this note have been copied from my previous progress note dated 10/28/24. All the information has been reviewed carefully. CHIEF COMPLAINT: Leukopenia HPI: Stephanie Larson is a 68 year old year old female with GERD, depression referred to us for leukopenia. No smoking Occasionally drinks alcohol DEXA scan showed osteoporosis Uptodate with mammogram. CBC on 08/19/24 showed WBC 2.5 and ANC 1.0 No complaints 10/28/24: - Doing well - No major complaints - Denies infections 12/09/24: - BM biopsy showed Normocellular bone marrow with trilineage hematopoiesis - NGS studies showed BCORL1 - Normal cytogenetics - T cell receptor gene arrangement is negative. Current Outpatient Medications Medication Sig omeprazole (PRILOSEC) 40 mg capsule Take 40 mg by mouth once daily. vit C/E/Zn/coppr/lutein/zeaxan (PRESERVISION AREDS-2 ORAL) Take by mouth once daily. calcium carbonate/vitamin D3 (CALCIUM WITH VITAMIN D3 ORAL) Take by mouth once daily. ZINC ORAL Take by mouth once daily. esomeprazole (NEXIUM) 40 mg capsule Take 40 mg by mouth once daily. sertraline (ZOLOFT) 25 mg tablet Take 25 mg by mouth every morning. oxybutynin ER (DITROPAN XL) 10 mg 24 hr tablet TAKE 1 TABLET BY MOUTH ONCE DAILY DO NOT CRUSH CHEW OR SPLIT fexofenadine-pseudoephedrine (ALVA D) 60-120 mg per tablet Take 1 tablet by mouth once daily. No current facility-administered medications for this visit. ALLERGIES Allergen Reactions Ibuprofen Hives, Other: See Comments Also experiences sores in mouth after taking Ibuprofen Other Reaction(s): hives and sores, other Also experiences sores in mouth after taking Ibuprofen Other Reaction(s): other Also experiences sores in mouth after taking Ibuprofen Other Reaction(s): hives and sores, other Also experiences sores in mouth after taking Ibuprofen Other Reaction(s): other Morphine GI Upset, Other: See Comments, Vomiting Other Reaction(s): other, Unknown, Vomiting Other Reaction(s): Vomiting Other Reaction(s): other, Unknown, Vomiting Other Reaction(s): Vomiting PAST MEDICAL HISTORY Diagnosis Date Depression GERD (gastroesophageal reflux disease) Hiatal hernia Hypercholesterolemia Leukopenia PAST SURGICAL HISTORY Procedure Laterality Date PAST SURGICAL HISTORY OF EGD PAST SURGICAL HISTORY OF Tooth Post FAMILY HISTORY Problem Relation Age of Onset Hypertension Father Diabetes Father Social History Tobacco Use Smoking status: Never Smokeless tobacco: Never Substance Use Topics Alcohol use: Yes Drug use: Never REVIEW OF SYSTEMS GENERAL: No weight loss, malaise or fevers. No night sweats. HEENT: Negative for headaches, No changes in hearing or vision, no nose bleeds or other nasal problems. RESPIRATORY: Negative for cough, wheezing and shortness of breath CARDIOVASCULAR: Negative for chest pain, leg swelling and palpitations GI: Negative for abdominal discomfort, blood in stools or black stools and change in bowel habits : Negative for dysuria, frequency and incontinence MUSCULOSKELETAL: Negative for joint pain or swelling, back pain, and muscle pain. SKIN: Negative for lesions, rash, and itching. HEMATOLOGY/LYMPHOLOGY Negative for prolonged bleeding, bruising easily, and swollen nodes. NEURO: Negative for numbness or tingling of hands/feet. No weakness. PHYSICAL EXAMINATION: There were no vitals taken for this visit. There were no vitals taken for this visit. No data found for this vital: Wt General appearance:ECOG PERFORMANCE STATUS: 0- Fully active, able to carry on all pre-disease performance w/o restriction. Patient in NAD. Skin: Skin color, texture, turgor normal. No rashes or lesions. Eyes: Anicteric sclera. Pupils are equally round and reactive to light. Extraocular movements are intact. Breast: No palpable breast masses. No nipple change or discharge. Lymph Nodes: No cervical, supraclavicular, axillary or inguinal adenopathy. Oropharynx: Lips, mucosa, and tongue normal. Back: No pain to percussion. Negative SLR test Lungs clear to auscultation, No wheezing or rhonchi Heart: RRR without murmur, gallop, or rubs. Abdomen soft, non-tender. No masses, organomegaly Extremities: No deformities. No edema Neuro: Gait and speech normal. Reflexes normal and symmetric. Muscular strength intact. Sensation grossly intact. Rectal: Deferred : Deferred LABS: Glucose (mg/dL) Date Value 10/28/2024 87 Potassium (mmol/L) Yoan (more content not included)... [facility] 12-09-2024 Instructions Don Villanueva MD - 12/09/2024 1:55 PM EDT CBC today F/u in 6 months documented in this encounter [facility] 12-09-2024 Note HNO ID: [id number] Author: CORNELIO AYOUB MA Service: ? Author Type: Beater Machine Operator Type: Progress Notes Filed: 12/09/2024 14:07 Note Text: Clinical questionnaires incomplete due to Patient declined to complete or answer questions with nurse [facility] 10-28-2024 Telephone encounter Note Kendall Campbell, Referring this patient for BMBX. Patient aware, Can you reach out to her and get her scheduled? Thanks so much! Nilo Saleem [facility] 10-28-2024 Miscellaneous Notes Kendall Campbell, Referring this patient for BMBX. Patient aware, Can you reach out to her and get her scheduled? Thanks so much! Nilo Saleem documented in this encounter [facility] 10-28-2024 Instructions Don Villanueva MD - 10/28/2024 3:04 PM EST Ordered labs Ordered BM biopsy F/u in 6 weeks documented in this encounter [facility] 10-28-2024 History of Present illness Narrative PATIENT NAME: Stephanie Larson CLINIC NO.: [id number] ATTENDING PHYSICIAN: Don Villanueva MD DATE OF SERVICE: 10/28/[address] Rogers Che MD ([facility]) [address] [facility] [address] thank you for referring Stephanie Larson for an opinion regarding Leukopenia. Some of the elements of this note have been copied from my previous progress note dated 09/16/24. All the information has been reviewed carefully. CHIEF COMPLAINT: Leukopenia HPI: Stephanie Larson is a 68 year old year old female with GERD, depression referred to us for leukopenia. No smoking Occasionally drinks alcohol DEXA scan showed osteoporosis Uptodate with mammogram. CBC on 08/19/24 showed WBC 2.5 and ANC 1.0 No complaints 10/28/24: - Doing well - No major complaints - Denies infections Current Outpatient Medications Medication Sig omeprazole (PRILOSEC) 40 mg capsule Take 40 mg by mouth once daily. vit C/E/Zn/coppr/lutein/zeaxan (PRESERVISION AREDS-2 ORAL) Take by mouth once daily. calcium carbonate/vitamin D3 (CALCIUM WITH VITAMIN D3 ORAL) Take by mouth once daily. ZINC ORAL Take by mouth once daily. sertraline (ZOLOFT) 25 mg tablet Take 25 mg by mouth every morning. oxybutynin ER (DITROPAN XL) 10 mg 24 hr tablet TAKE 1 TABLET BY MOUTH ONCE DAILY DO NOT CRUSH CHEW OR SPLIT fexofenadine-pseudoephedrine (ALVA D) 60-120 mg per tablet Take 1 tablet by mouth once daily. esomeprazole (NEXIUM) 40 mg capsule Take 40 mg by mouth once daily. No current facility-administered medications for this visit. ALLERGIES Allergen Reactions Ibuprofen Hives, Other: See Comments Also experiences sores in mouth after taking Ibuprofen Other Reaction(s): hives and sores, other Also experiences sores in mouth after taking Ibuprofen Other Reaction(s): other Also experiences sores in mouth after taking Ibuprofen Other Reaction(s): hives and sores, other Also experiences sores in mouth after taking Ibuprofen Other Reaction(s): other Morphine GI Upset, Other: See Comments, Vomiting Other Reaction(s): other, Unknown, Vomiting Other Reaction(s): Vomiting Other Reaction(s): other, Unknown, Vomiting Other Reaction(s): Vomiting PAST MEDICAL HISTORY Diagnosis Date Depression GERD (gastroesophageal reflux disease) Hypercholesterolemia Leukopenia PAST SURGICAL HISTORY Procedure Laterality Date PAST SURGICAL HISTORY OF EGD PAST SURGICAL HISTORY OF Tooth Post FAMILY HISTORY Problem Relation Age of Onset Hypertension Father Diabetes Father Social History Tobacco Use Smoking status: Never Smokeless tobacco: Never Substance Use Topics Alcohol use: Yes Drug use: Never REVIEW OF SYSTEMS GENERAL: No weight loss, malaise or fevers. No night sweats. HEENT: Negative for headaches, No changes in hearing or vision, no nose bleeds or other nasal problems. RESPIRATORY: Negative for cough, wheezing and shortness of breath CARDIOVASCULAR: Negative for chest pain, leg swelling and palpitations GI: Negative for abdominal discomfort, blood in stools or black stools and change in bowel habits : Negative for dysuria, frequency and incontinence MUSCULOSKELETAL: Negative for joint pain or swelling, back pain, and muscle pain. SKIN: Negative for lesions, rash, and itching. HEMATOLOGY/LYMPHOLOGY Negative for prolonged bleeding, bruising easily, and swollen nodes. NEURO: Negative for numbness or tingling of hands/feet. No weakness. PHYSICAL EXAMINATION: BP 129/61 Pulse (!) 55 Temp 36.2 C (97.2 F) (Temporal) Resp 16 Wt 52.4 kg (115 lb 8.3 oz) SpO2 97% BMI 21.13 kg/m There were no vitals taken for this visit. No data found for this vital: Wt General appearance:ECOG PERFORMANCE STATUS: 0- Fully active, able to carry on all pre-disease performance w/o restriction. Patient in NAD. Skin: Skin color, texture, turgor normal. No rashes or lesions. Eyes: Anicteric sclera. Pupils are equally round and reactive to light. Extraocular movements are intact. Breast: No palpable breast masses. No nipple change or discharge. Lymph Nodes: No cervical, supraclavicular, axillary or inguinal adenopathy. Oropharynx: Lips, mucosa, and tongue normal. Back: No pain to percussion. Negative SLR test Lungs clear to auscultation, No wheezing or rhonchi Heart: RRR without murmur, gallop, or rubs. Abdomen soft, non-tender. No masses, organomegaly Extremities: No deformities. No edema Neuro: Gait and speech normal. Reflexes normal and symmetric. Muscular strength intact. Sensation grossly intact. Rectal: Deferred : Deferred LABS: Glucose (mg/dL) Date Value 10/28/2024 87 Potassium (mmol/L) Date Value 10/28/2024 4.4 Sodium (mmol/L) Date Value 10/28/2024 140 Chloride (mmol/L) Date Value 10/28/2024 101 CO2 (mmol/L) Date Value 10/28/2024 28 Creatinine (mg/dL) Date Value 10/28/2024 0.74 BUN (mg/dL) Date Value 10/28/2024 12 10/01/2023 13 Anion Gap (mmol/L) Date Value 10/28/2024 11 Calcium, Total (mg/dL) Date Value 10/28/2024 9.5 Protein, Total (g/dL) Date Value 10/28/2024 7.2 Albumin (g/dL) Date Value 10/28/2024 4.5 Bilirubin, Total (mg/dL) Date Value 10/28/2024 0.3 Alkaline Phosphatase (U/L) Date Value 10/28/2024 85 AST (U/L) Date Value 10/28/2024 22 ALT (U/L) Date Value 10/28/2024 13 WBC Date Value Ref Range Status 10/28/2024 3.07 (L) 3.70 - 11.00 k/uL Final RBC Date Value Ref Range Status 10/28/2024 3.76 (L) 3.90 - 5.20 m/uL Final Hemoglobin Date Value Ref Range Status 10/28/2024 12.3 11.5 - 15.5 g/dL Final Hematocrit Date Value Ref Range Status 10/28/2024 36.6 36.0 - 46.0 % Final MCV Date Value Ref Range Status 10/28/2024 97.3 80.0 - 100.0 fL Final MCH Date Value Ref Range Status 10/28/2024 32.7 26.0 - 34.0 pg Final MCHC Date Value Ref Range Status 10/28/2024 33.6 30.5 - 36.0 g/dL Final RDW-CV Date Value Ref Range Status 10/28/2024 12.3 11.5 - 15.0 % Final Platelet Count Date Value Ref Range Status 10/28/2024 229 150 - 400 k/uL Final MPV Date Value Ref Range Status 10/28/2024 9.1 9.0 - 12.7 fL Final Abs Neut Date Value Ref Range Status 10/28/2024 0.88 (L) 1.45 - 7.50 k/uL Final Lymphocytes % Date Value Ref Range Status 10/28/2024 58.6 % Final Abs Lymph Date Value Ref Range Status 10/28/2024 1.80 1.00 - 4.00 k/uL Final Monocytes % Date Value Ref Range Status 10/28/2024 10.4 % Final Abs [place] Date Value Ref Range Status 10/28/2024 0.32 <0.87 k/uL Final Abs Eosin Date Value Ref Range Status 10/28/2024 0.03 <0.46 k/uL Final Basophils % Date Value Ref Range Status 10/28/2024 1.0 % Final Abs Baso Date Value Ref Range Status 10/28/2024 0.03 <0.11 k/uL Final PATH: IMAGING: ASSESSMENT AND PLAN: Stephanie Larson is a 68 year old year old female referred to us for leukopenia. PS 0 CBC on 08/19/24 showed WBC 2.5 and ANC 1.0 with a normal hemoglobin and platelets PLAN: - CBC on 09/17/24 showed ANC 1.0. - CBC today showed ANC 0.8. - Given the persistent neutropenia, ordered a BM biopsy to r/o marrow disorders. - Rest of the blood work is unremarkable. - All her questions answered in detail - F/u in [address] Rogers Che MD ([facility]) [address] [place] [address] thank you for allowing me to participate in Stephanie Larson care, if there are any questions or concerns please do not hesitate to contact me at the number below. I spent a total of 20 minutes on the date of the service which included preparing to see the patient, [id number] patient care, completing clinical documentation, obtaining and/or reviewing separately obtained history, performing a medically appropriate examination, counseling and educating the patient/family/caregiver, ordering medications, tests, or procedures, communicating with other HCPs (not separately reported), independently interpreting results (not separately reported), communicating results to the patient/family/caregiver, and care coordination (not separately reported). Don Villanueva MD. Hematology/Medical Oncology [facility] [phone] CC: documented in this encounter [facility] 10-28-2024 Note HNO ID: [id number] Author: DON VILLANUEVA MD Service: ? Author Type: Physician Type: Progress Notes Filed: 10/28/2024 15:25 Note Text: PATIENT NAME: Stephanie Larson CLINIC NO.: [id number] ATTENDING PHYSICIAN: Don Villanueva MD DATE OF SERVICE: 10/28/[address] Rogers Che MD ([facility]) [address] [place] [address] thank you for referring Stephanie Larson for an opinion regarding Leukopenia. Some of the elements of this note have been copied from my previous progress note dated 09/16/24. All the information has been reviewed carefully. CHIEF COMPLAINT: Leukopenia HPI: Stephanie Larson is a 68 year old year old female with GERD, depression referred to us for leukopenia. No smoking Occasionally drinks alcohol DEXA scan showed osteoporosis Uptodate with mammogram. CBC on 08/19/24 showed WBC 2.5 and ANC 1.0 No complaints 10/28/24: - Doing well - No major complaints - Denies infections Current Outpatient Medications Medication Sig omeprazole (PRILOSEC) 40 mg capsule Take 40 mg by mouth once daily. vit C/E/Zn/coppr/lutein/zeaxan (PRESERVISION AREDS-2 ORAL) Take by mouth once daily. calcium carbonate/vitamin D3 (CALCIUM WITH VITAMIN D3 ORAL) Take by mouth once daily. ZINC ORAL Take by mouth once daily. sertraline (ZOLOFT) 25 mg tablet Take 25 mg by mouth every morning. oxybutynin ER (DITROPAN XL) 10 mg 24 hr tablet TAKE 1 TABLET BY MOUTH ONCE DAILY DO NOT CRUSH CHEW OR SPLIT fexofenadine-pseudoephedrine (ALVA D) 60-120 mg per tablet Take 1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 including vitamin deficiencies , autoimmune disorders and bone marrow disorders. -CBC on 08/19/24 showed WBC 2.5 and ANC 1.0 with a normal hemoglobin and platelets. -Check CBC CMP ferritin iron studies B12 folate ARLEY copper and zinc levels -Monitor the mild neutropenia for now -Further management depending on the above blood test results -Will consider doing a bone marrow biopsy in the future if necessary -All her questions answered in detail - F/u in [address] Rogers Che MD ([facility]) [address] [place] [facility] [place] [address] thank you for allowing me to participate in Stephanie Larson care, if there are any questions or concerns please do not hesitate to contact me at the number below. I spent a total of 45 minutes on the date of the service which included preparing to see the patient, [id number] patient care, completing clinical documentation, obtaining and/or reviewing separately obtained history, performing a medically appropriate examination, counseling and educating the patient/family/caregiver, ordering medications, tests, or procedures, communicating with other HCPs (not separately reported), independently interpreting results (not separately (more content not included)... [facility] 09-15-2024 Note Subjective Patient ID: Stephanie Larson is a 68 y.o. female who presents for Follow-up (Stephanie is here today for follow up: s/p hiatal hernia repair in 2009, having increased heartburn/). HPI She is tolerating soft diet and with normal BM. Review of Systems Constitutional: Negative. HENT: Negative. Respiratory: Negative. Cardiovascular: Negative. Gastrointestinal: Negative. Genitourinary: Negative. Neurological: Negative. Hematological: Negative. Objective Visit Vitals BP 97/65 (BP Location: Right arm, Patient Position: Sitting) Pulse 63 Temp 36.7 ???C (98 ???F) (Oral) Physical Exam HENT: Head: Atraumatic. Cardiovascular: Rate and Rhythm: Normal rate. Pulmonary: Effort: Pulmonary effort is normal. Abdominal: General: Abdomen is flat. Palpations: Abdomen is soft. Musculoskeletal: Cervical back: Neck supple. Neurological: Mental Status: She is alert and oriented to person, place, and time. Assessment/Plan Heartburn EGD Esophagram No diagnosis found. No orders of the defined types were placed in this encounter. No results found for this or any previous visit (from the past 36 hour(s)). No follow-ups on file. [facility] 09-09-2024 Miscellaneous Notes 09/08 Order received 09/09 Called PT LM to schedule sleep study. PAP Order and 09/08/24 [facility] Notes Not tolerating auto CPAP, start CPAP 4 documented in this encounter [employer] 09-09-2024 Telephone encounter Note 09/08 Order received 09/09 Called PT LM to schedule sleep study. PAP Order and 09/08/24 [facility] Notes Not tolerating auto CPAP, start CPAP 4 [facility] 09-08-2024 History of Present illness Narrative Images from the original note were not included. CHIEF COMPLAINT: Stephanie Larson is a 68 y.o. female who presents to [facility] in follow-up for BERE The patient was unaccompanied. INTERVAL EVENTS Since last seen, Ms. Larson reports she feels no better with CPAP. She still wakes tired. She was hoping to have improvement in fatigue. She recently has been having heart burn, seems to be worse with CPAP. She had a hole esophagus in the past and will be seeing her surgeon about this. She talked to her dentist and no oral appliance can be made for BERE as she is using the appliance for TMJ/jaw problems Sleping on her back with CPAP Prefers stomach sleep BT 11pm, later if computer Waking 9:30-10 am STEPH: not long typically FNA: staying asleep She denies sleepiness while driving. Celeste Sleepiness Scale: Sitting and Reading: Never Watching TV: Slight Chance Sitting inactive in a public place (theater, meeting): Never As a passenger in a car for an hour without a break: (!) Moderate Chance Lying down in the afternoon to rest: (!) Moderate Chance Sitting and talking to someone: Never Sitting quietly after lunch (without alcohol): Never In a car, while stopped for a few minutes in traffic: Never Total: 5 I personally reviewed this data PAST MEDICAL HISTORY: Patient Active Problem List Diagnosis Abnormal weight loss Heartburn Diaphragmatic hernia Gastroesophageal reflux disease Hiatal hernia Irritable bowel syndrome Osteoporosis Hypercholesterolemia Diaphragmatic hernia Gastroesophageal reflux disease Necrosis of bone of jaw Dislocation of jaw Sleep apnea Past Medical History: Diagnosis Date Osteoporosis Torus palatinus UTI (urinary tract infection) recurrent Past Surgical History: Procedure Laterality Date COLONOSCOPY 2011 Dr. Dahl COLONOSCOPY N/A 01/03/2022 Performed by Terry Ronquillo MD at [facility] FRACTURE SURGERY 1994 HERNIA REPAIR 2010 paraesophageal hernia, Dr. Curly MISHRA TOOTH ZOROASTRIAN TUBAL LIGATION 1981 ALLERGIES: Allergies Allergen Reactions Ibuprofen Hives and Other (See Comments) Also experiences sores in mouth after taking Ibuprofen Morphine Vomiting and Other (See Comments) MEDICATIONS: Current Outpatient Medications on File Prior to Visit Medication Sig Dispense Refill calcium carbonate-vitamin D3 (CALCIUM 500 + D) 500 mg-10 mcg (400 unit) chewable tablet Calcium 500 + D one tablet daily esomeprazole (NexIUM) 40 mg capsule Take 1 capsule (40 mg total) by mouth every morning before breakfast. fexofenadine-pseudoephedrine (ALVA-D) 60-120 mg per 12 hr tablet Take 1 tablet by mouth once daily. oxybutynin XL (DITROPAN-XL) 10 mg 24 hr tablet TAKE 1 TABLET BY MOUTH ONCE DAILY DO NOT CRUSH CHEW OR SPLIT sertraline (ZOLOFT) 25 mg tablet Take 1 tablet (25 mg total) by mouth in the morning. 90 tablet 1 No current facility-administered medications on file prior to visit. PHYSICAL EXAMINATION: BP 114/73 (BP Site: Right Arm, BP Postition: Sitting) Pulse 68 Ht 160 cm (5' 2.99 ) Wt 51.7 kg (114 lb) SpO2 98% BMI 20.20 kg/m General appearance: no acute distress. Eyes: no conjunctival erythema, no scleral icterus. Ears, Nose, Mouth and Throat: external ears unremarkable, external nose and mouth unremarkable Neck: trachea position midline. Respiratory: normal work of breathing Skin: No rash/ lesions/ulcers/ induration/subcutaneous nodules in visible regions. Neurologic: face symmetric at rest and activation, no dysarthria, no tremor or abnormal movements Mental Status: Cognitive: Alert and oriented. Insight good. Judgment good. DATA: I personally reviewed the following: Lab Results Component Value Date WBC 2.5 (L) 08/19/2024 HGB 12.8 08/19/2024 HCT 38.0 08/19/2024 MCV 98 08/19/2024 PLT 249 08/19/2024 No results found for: FERRITIN Chemistry Component Value Date/Time K 4.1 08/19/2024 1123 CL 100 08/19/2024 1123 CO2 32 08/19/2024 1123 BUN 15 08/19/2024 1123 CREATININE 0.74 08/19/2024 1123 GLU 94 08/19/2024 1123 Component Value Date/Time CALCIUM 9.7 08/19/2024 1123 ALKPHOS 90 08/19/2024 1123 AST 24 08/19/2024 1123 ALT 28 08/19/2024 1123 HST : 11/27/2023 DIAGNOSIS: Obstructive Sleep Apnea JORGE A 13 [id number] 86% COMMENTS: This home sleep apnea test performed with an oral appliance demonstrates residual obstructive sleep apnea worse in supine positioning. Clustering of events may suggestive additional sleep-stage dependence. Frequent brittany obstructive apneas associated with desaturation were observed at times in supine positioning for which CPAP would likely be more effective treatment option. IMPRESSION/RECOMMENDATIONS: 1. Obstructive sleep apnea 2. Intolerance of continuous positive airway pressure (CPAP) ventilation Stephanie Larson is a 68 y.o. female with medical problems including as above, presenting in follow up for BERE JORGE A 13 [id number] 86%, prescribed auto CPAP 7-15 cm of water. She notes continued fatigue, not improved with CPAP, adherence has been below goal due to acid reflux symptoms. Recommended CPAP titration to optimize CPAP setting and assess efficacy which was ordered today. Discussed that treatment for mild BERE would include positional therapy- she should avoid sleeping on her back and prefers stomach, mandibular advancing oral appliance but this is not an option with her jaw problems. We could also consider getting an in lab PSG to clarify AHI as if her medicare AHI were above 15 she could potentially pursue [employer]. EDUCATION: Health risks associated with untreated BERE were discussed (cardiopulmonary, cerebrovascular, and anesthesia/sedative-related). Risks associated with excessive daytime sleepiness, particularly while driving/operating machinery were discussed. The patient was instructed to avoid such activities if feeling sleepy, and to stop the activity if sleepiness occurs (head well puller at the next safe opportunity if driving). BERE treatment options were discussed. CPAP is the most predictably effective treatment. Above plan as discussed with the patient who acknowledged understanding and agreement. MARGY FOREMAN MD [facility] [address] [place] [address] documented in this encounter [facility] 09-08-2024 Instructions Margy Foreman MD - 09/08/2024 10:30 AM EST CPAP titration Sleep on side Thank you for visiting [facility] office. The process of completing a sleep study has many steps. We have detailed these steps below to help keep you informed of what to expect. The scheduling, prior authorization, and registration process: Please call [phone] option #1 to schedule your sleep study. Your sleep medicine specialist places an electronic order which is sent to [facility] sleep lab. This order is then reviewed by the lab staff and a request for approval is sent to your insurance company. If you would like to know the estimated cost of your study, you can call [phone] for general pricing information (note that you will need the following procedure codes allow them to estimate the cost: Polysomnogram (PSG), in lab diagnostic study without CPAP = 11377 PAP titration, in lab with CPAP for treatment = 33586 Home sleep study = 46049 Every study request is reviewed in our sleep prior authorization department. Some sleep studies require prior authorization and some do not (only require that the provider document the need for the study). Some sleep study orders may need to be changed based on insurance coverage. (ie in lab to home study). Please confirm with your insurance that all [facility] sleep labs are in network with your insurance. If you change your insurance after the sleep study is ordered, please call the sleep lab back to update our scheduling staff ([phone] option #1). You should receive a call prior to your sleep study to pre-register. They will be able to provide sleep study cost estimates as well. The sleep lab will also give detailed instructions on where to check in for the study. Preparing for your sleep study: Avoid napping and afternoon caffeine use prior to the sleep study. Very specific instructions on what to bring will be provided by the sleep lab (pajamas, toiletries, medications, etc). Prior to the sleep study you will be asked to choose a medical equipment supplier (DME).The DME will be providing the pap machine if ordered by the provider. What happens after my sleep study? Within 24-48 hours the data from your sleep study is sent to a engineering technician to be reviewed and scored. The report from the engineering technician is then sent to the sleep medicine physician and within 7-10 days the study will be formally interpreted. Once the study is completed, there will be contact from our office (through mychart, phone, or a letter) about next steps (ie treatment for sleep apnea, office appointment, cpap machine orders). If a cpap machine has been ordered and you do not hear from the equipment company within 30 days of your study, please call our office [phone]. FYI: Some insurance companies have strict guidelines regarding the timeline for this process. If sleep studies are not completed within 6-12 months of the office visit insurance may require another office visit. Also if cpap set up is not done within a year of the initial sleep study insurance may require another sleep study. Thank you, [facility] Department [facility] History of Present illness Narrative Subjective Patient ID: Stephanie Larson is a 68 y.o. female. Anjali presents today for recheck of multiple problems. She is fasting. She is willing to get her cholesterol checked. She would consider taking medication if needed. She is taking her antidepressant. She feels it is making her feel restless inside. She would like to cut back on it. She is having discomfort in her stomach like she did when she had her hiatal hernia repaired. It is in his bad as it was back when it 1st started. Does go to her back. The esomeprazole does help. The following portions of the patient's history were reviewed and updated as appropriate: allergies, current medications, past family history, past medical history, past social history, past surgical history, problem list, and medication reconciliation was completed including current medication and post discharge medication. Review of Systems Constitutional: Negative. HENT: Negative. Eyes: Negative. Respiratory: Negative. Cardiovascular: Negative. Gastrointestinal: Negative. Endocrine: Negative. Genitourinary: Negative. Musculoskeletal: Negative. Skin: Negative. Allergic/Immunologic: Negative. Neurological: Negative. Hematological: Negative. Psychiatric/Behavioral: Negative. Objective Physical Exam Exam conducted with a single pointed operator present (Tim Coronado MS III). Constitutional: General: She is not in acute distress. Appearance: She is well-developed, well-groomed and normal weight. She is not ill-appearing. HENT: Head: Normocephalic. Eyes: General: No scleral icterus. Extraocular Movements: Extraocular movements intact. Conjunctiva/sclera: Conjunctivae normal. Neck: Vascular: No carotid bruit. Cardiovascular: Rate and Rhythm: Normal rate and regular rhythm. Pulses: Normal pulses. Heart sounds: Normal heart sounds. Pulmonary: Effort: Pulmonary effort is normal. No respiratory distress. Breath sounds: Normal breath sounds. No wheezing. Abdominal: General: Bowel sounds are normal. Palpations: Abdomen is soft. Tenderness: There is no abdominal tenderness. Musculoskeletal: General: Normal range of motion. Cervical back: Neck supple. Lymphadenopathy: Cervical: No cervical adenopathy. Skin: General: Skin is warm and dry. Neurological: General: No focal deficit present. Mental Status: She is alert and oriented to person, place, and time. Psychiatric: Attention and Perception: Attention normal. Mood and Affect: Mood and affect normal. Speech: Speech normal. Behavior: Behavior normal. Behavior is cooperative. Thought Content: Thought content normal. Cognition and Memory: Cognition normal. Judgment: Judgment normal. Assessment/Plan Anjali was seen today for depression, hypertension and hyperlipidemia. Diagnoses and all orders for this visit: Mild major depression (CMS-HCC) - sertraline (ZOLOFT) 25 mg tablet; Take 1 tablet (25 mg total) by mouth in the morning. We will try a gradual dose reduction to 25 mg daily. Gastroesophageal reflux disease, unspecified whether esophagitis present Continue esomeprazole. Recommend to follow up with surgeon. May need a scope or further testing. Hypercholesterolemia - Comprehensive metabolic panel; Future - Lipid panel; Future Check CMP and lipids. She would try a medication if needed. Leukopenia, unspecified type - Cancel: CBC; Future - CBC auto differential; Future Check CBC. May need to see camp cook if opinion persists. documented in this encounter [employer] 07-22-2024 Miscellaneous Notes Anjali called asking for a order to be sent to [facility] for a nasal mask. She does not want to use nasal pillows. Order for nasal cushion placed Patient notified. Faxed mask order to [facility]. documented in this encounter [facility] 07-22-2024 Telephone encounter Note Anjali called asking for a order to be sent to [facility] for a nasal mask. She does not want to use nasal pillows. [facility] 07-22-2024 Telephone encounter Note Order for nasal cushion placed [facility] 07-22-2024 Telephone encounter Note Patient notified. [facility] 07-22-2024 Telephone encounter Note Faxed mask order to [facility]. [facility] 06-25-2024 History of Present illness Narrative Skin Check Location: Patient requests a full body skin examination Dermatologic history: history of Actinic Keratosis Last visit: 03/24/2024 Established patient All pertinent medical history, medications, and allergies were reviewed. General Exam: alert , oriented to person, place, and time , normal affect, well appearing Accompanied by spouse Scalp, Examined , exam limited by hair Right leg Examined Head, Face Examined Left leg Examined Neck Examined Right foot Examined Chest Examined Left foot Examined Back Examined Buttocks Examined Abdomen Examined Digits,nails: Examined Right arm Examined Patient wearing nail kinyarwanda, Denies dark streaks under finger nails, Denies dark streaks on toenails Left arm Examined Lymphatics: Not examined Hands Examined 1. Seborrheic keratosis Stuck on verrucous, variably pigmented papules and plaques. Patient was counseled regarding these benign growths. Removal is normally not necessary, but they may be removed if they are symptomatic or for cosmetic reasons. 2. Lentigines Scattered arthur macules in sun-exposed areas. The patient was informed that lentigines are benign pigmented lesions that occur on sun-exposed and sun-damaged skin. No treatment is necessary. Recommended regular use of broad spectrum sunscreen SPF 30 or higher 3. Capillary angioma Scattered crump-red papule(s). The patient was informed that angiomas are benign growths on the the skin. No treatment is necessary. 4. Rash and other nonspecific skin eruption Legs Postinflammatory hyperpigmentation Rash is resolved but patient states it still itches. Start Benadryl-Zinc cream up to TID as needed. diphenhydrAMINE-zinc acetate (Benadryl Extra Strength) cream - Legs Apply topically 3 (three) times a day as needed for itching Next Visit: 1 year, skin check documented in this encounter [facility] 06-16-2024 History of Present illness Narrative Subjective Patient ID: Stephanie Larson is a 68 y.o. female. Anjali presents today for follow-up of a wound. She was down in [facility] and was bitten by small bugs that no one can see. It happened on the back of her left leg. It was about 2 weeks ago. It got red and swollen and then yellow pus drained out of them. She was seen by a doctor who said she has MRSA and prescribed clindamycin 600 mg 4 times a day for 10 days. She was also given bacitracin ointment to put on. After 5 days she began having side effects of nausea, dysphagia and some diarrhea so she stopped it. The drainage has stopped. It is better overall than what it was but she wanted it rechecked his there is still some discoloration there. She was using a bandage on it and there is a rash that looks like it is from the Band-Aid. That rash itches. She also had another red spot up higher on her upper thigh posteriorly on her left leg. That has scaled over. There is no drainage from that. She does not have a fever. She has never had a rash like this before. The following portions of the patient's history were reviewed and updated as appropriate: allergies, current medications, past family history, past medical history, past social history, past surgical history, problem list, and medication reconciliation was completed including current medication and post discharge medication. Review of Systems Constitutional: Negative. Skin: Positive for rash and wound. Objective Physical Exam Constitutional: General: She is not in acute distress. Appearance: Normal appearance. She is normal weight. She is not ill-appearing. HENT: Head: Normocephalic. Pulmonary: Effort: Pulmonary effort is normal. Musculoskeletal: Cervical back: Neck supple. Skin: Findings: Rash (Several red papules around the site of the infection on the left posterior mid calf. There is hyperpigmentation noted in 2 macules in the center where the infection was. It is not red, tender, warm or indurated. Picture was taken.) present. Neurological: General: No focal deficit present. Mental Status: She is alert and oriented to person, place, and time. Assessment/Plan Anjali was seen today for wound on leg recheck. Diagnoses and all orders for this visit: History of cellulitis The site where she had cellulitis looks like it is healed. She is concerned that she only took 5 days of antibiotics on a 10 day course but I reassured her that it looks healed at this point. There is no clinical signs of cellulitis. There is no abscess. She can put the bacitracin on a site for now and can use it in her nares for a few days if it was MRSA. Call if worse or new symptoms arise. Irritant contact dermatitis due to other chemical products She can use hydrocortisone cream on the rash that was around the site of the infection that is due to the bandage. He outlined of the bandage was faintly visible. documented in this encounter [facility] 06-05-2024 Miscellaneous Notes PAP mask and supplies order with supportive documentation faxed to [facility]. documented in this encounter [facility] 06-05-2024 Telephone encounter Note PAP mask and supplies order with supportive documentation faxed to [facility]. [facility] 05-26-2024 History of Present illness Narrative Images from the original note were not included. Images from the original note were not included. CHIEF COMPLAINT: Stephanie Larson is a 68 y.o. female who presents to [facility] in follow-up for BERE The patient was unaccompanied. INTERVAL EVENTS Since last seen, Ms. Larson reports she believes she received her CPAP at the end of February. She reports that she was using it nightly up until her mother went to hospital in 1 hospice. She was not able to use the machine as she was not in her home. She has since resumed using her CPAP. She does not notice much improvement in her sleep although she notes that she has had a lot of stressors going on. Is resolved per . She is currently using a hybrid N30 I mask. She is having trouble with leak near the tube she also has some irritation on her face the mask. She is wearing an oral appliance made by her dentist for jaw problems and it is difficult to wear both of these. She is going to be seeing her dentist soon. She tried using a nasal mask but her mouth came open with this. She did not try it with a chinstrap Celeste Sleepiness Scale: Sitting and Reading: Slight Chance Watching TV: Slight Chance Sitting inactive in a public place (theater, meeting): Never As a passenger in a car for an hour without a break: (!) Moderate Chance Lying down in the afternoon to rest: (!) High Chance Sitting and talking to someone: Never Sitting quietly after lunch (without alcohol): Never In a car, while stopped for a few minutes in traffic: Never Total: 7 PAST MEDICAL HISTORY: Patient Active Problem List Diagnosis Abnormal weight loss Heartburn Diaphragmatic hernia Gastroesophageal reflux disease Hiatal hernia Irritable bowel syndrome Osteoporosis Hypercholesterolemia Diaphragmatic hernia Gastroesophageal reflux disease Necrosis of bone of jaw Dislocation of jaw Sleep apnea Past Medical History: Diagnosis Date Osteoporosis Torus palatinus UTI (urinary tract infection) recurrent Past Surgical History: Procedure Laterality Date COLONOSCOPY 2011 Dr. Dahl COLONOSCOPY N/A 01/03/2022 Performed by Terry Ronquillo MD at [facility] FRACTURE SURGERY 1993 HERNIA REPAIR 2009 paraesophageal hernia, Dr. Curly MISHRA TOOTH ZOROASTRIAN TUBAL LIGATION 1981 ALLERGIES: Allergies Allergen Reactions Ibuprofen Hives and Other (See Comments) Also experiences sores in mouth after taking Ibuprofen Morphine Vomiting and Other (See Comments) MEDICATIONS: Current Outpatient Medications on File Prior to Visit Medication Sig Dispense Refill calcium carbonate-vitamin D3 (CALCIUM 500 + D) 500 mg-10 mcg (400 unit) chewable tablet Calcium 500 + D one tablet daily esomeprazole (NexIUM) 40 mg capsule Take 1 capsule (40 mg total) by mouth every morning before breakfast. fexofenadine-pseudoephedrine (ALVA-D) 60-120 mg per 12 hr tablet Take 1 tablet by mouth once daily. mirabegron (MYRBETRIQ) 50 mg tablet extended release 24 hr Take 1 tablet (50 mg total) by mouth in the morning. sertraline (ZOLOFT) 50 mg tablet take 1 tablet by mouth in the morning 180 tablet 0 omega 5-jhp-obu-fish oil (Fish OiL) 300-1,000 mg capsule Take by mouth. (Patient not taking: Reported on 05/26/2024) zinc gluconate 50 mg tablet Take 1 tablet (50 mg total) by mouth in the morning. (Patient not taking: Reported on 05/26/2024) No current facility-administered medications on file prior to visit. PHYSICAL EXAMINATION: BP 120/74 Pulse 63 Ht 160 cm (5' 3 ) Wt 50.9 kg (112 lb 4.8 oz) SpO2 99% BMI 19.89 kg/m General appearance: no acute distress. Eyes:no conjunctival erythema, no scleral icterus. Ears, Nose, Mouth and Throat: external ears unremarkable, external nose and mouth unremarkable Neck: trachea position midline. Respiratory: normal work of breathing Skin: No rash/ lesions/ulcers/ induration/subcutaneous nodules in visible regions. Neurologic: face symmetric at rest and activation, no dysarthria, no tremor or abnormal movements Mental Status: Cognitive: Alert and oriented. Insight good. Judgment good. DATA: Sleep Study Results: HST : 11/27/2023 DIAGNOSIS: Obstructive Sleep Apnea JORGE A 13 [id number] 86% COMMENTS: This home sleep apnea test performed with an oral appliance demonstrates residual obstructive sleep apnea worse in supine positioning. Clustering of events may suggestive additional sleep-stage dependence. Frequent brittany obstructive apneas associated with desaturation were observed at times in supine positioning for which CPAP would likely be more effective treatment option. IMPRESSION/RECOMMENDATIONS: 1. Obstructive sleep apnea 2. Difficulty using continuous positive airway pressure (CPAP) full face mask 3. Other insomnia Stephanie Larson is a 68 y.o. female with medical problems including as above, presenting in follow up for BERE JORGE A 13 [id number] 86%, treated with auto CPAP 5-20 cm of water. Compliance is below goal due to being away from home due to her mother being in the hospital and then in hospice. She does benefit from resolved snoring and low residual AHI.She is also having trouble with her mask and wearing it with the dental appliance made for her jaw problems. I gave her a Kiera DreamWear fullface mask trial instead of the N30 I mask. We also discussed trying a nasal cushion such as N30 or DreamWear nasal cushion with a chinstrap. She is going to talk to her dentist about can be done or if there are any alternatives to using the appliance. It does not treat her sleep apnea. Pressure change Order to 7-15 cm of water She should continue to use her machine She should be given other 90 days for compliance Consider in-lab titration if no improvement in sleep quality once using CPAP compliantly Rv 3 months Above plan as discussed with the patient who acknowledged understanding and agreement. MARGY FOREMAN MD [facility] [address] [place] [id number] documented in this encounter [facility] 05-26-2024 Instructions Margy Foreman MD - 05/26/2024 9:15 AM EDT Dream wear full face sample today Consider nasal mask with chin strap Ask dentist about appliance documented in this encounter [facility] 03-04-2024 Miscellaneous Notes Images from the original note were not included. PAP mask and supplies order with supportive documentation faxed to [facility] Fax Confirmed. documented in this encounter [facility] 03-04-2024 Telephone encounter Note Images from the original note were not included. PAP mask and supplies order with supportive documentation faxed to [facility] Fax Confirmed. [facility] 02-25-2024 History of Present illness Narrative Images from the original note were not included. CHIEF COMPLAINT: Stephanie Larson is a 68 y.o. female who presents to [facility] in follow-up for BERE The patient was accompanied by . INTERVAL EVENTS Since last seen, Ms. Larson reports she is using an oral appliance made by her dentist to addressed grinding her teeth. She reports having significant jaw problems. The device was also mean to address BERE and pull out her lower jaw. Her dentist was the one who brought up concerns about obstructive sleep apnea. Her dentist told her that she had a very small airway. Her reports that she does not really snore when she is using the oral appliance. She does still wake up tired. She reports difficulty falling asleep taking a few hours some nights. She reports that she sleeps in all positions Sleep Habits: Stays up on ipad Bedtime: around 11:30pm Wake Time: 10 am Sleep onset: can take hours sometimes Frequency of nocturnal awakening(s): Naps: not daily She denies sleepiness with driving Celeste Sleepiness Scale: Sitting and Reading: Never Watching TV: Slight Chance Sitting inactive in a public place (theater, meeting): Never As a passenger in a car for an hour without a break: (!) Moderate Chance Lying down in the afternoon to rest: (!) Moderate Chance Sitting and talking to someone: Never Sitting quietly after lunch (without alcohol): Never In a car, while stopped for a few minutes in traffic: Never Total: 5 PAST MEDICAL HISTORY: Patient Active Problem List Diagnosis Abnormal weight loss Heartburn Diaphragmatic hernia Gastroesophageal reflux disease Hiatal hernia Irritable bowel syndrome Osteoporosis Hypercholesterolemia Diaphragmatic hernia Gastroesophageal reflux disease Necrosis of bone of jaw Dislocation of jaw Sleep apnea Past Medical History: Diagnosis Date Osteoporosis Torus palatinus UTI (urinary tract infection) recurrent Past Surgical History: Procedure Laterality Date COLONOSCOPY 2011 Dr. Dahl COLONOSCOPY N/A 01/03/2022 Performed by Terry Ronquillo MD at [facility] FRACTURE SURGERY 1993 HERNIA REPAIR 2009 paraesophageal hernia, Dr. Curly MISHRA TOOTH ZOROASTRIAN TUBAL LIGATION 1981 ALLERGIES: Allergies Allergen Reactions Ibuprofen Hives and Other (See Comments) Also experiences sores in mouth after taking Ibuprofen Morphine Vomiting and Other (See Comments) MEDICATIONS: Current Outpatient Medications on File Prior to Visit Medication Sig Dispense Refill calcium carbonate-vitamin D3 (CALCIUM 500 + D) 500 mg-10 mcg (400 unit) chewable tablet Calcium 500 + D one tablet daily esomeprazole (NexIUM) 40 mg capsule Take 1 capsule (40 mg total) by mouth every morning before breakfast. fexofenadine-pseudoephedrine (ALVA-D) 60-120 mg per 12 hr tablet Take 1 tablet by mouth once daily. mirabegron (MYRBETRIQ) 50 mg tablet extended release 24 hr Take 1 tablet (50 mg total) by mouth in the morning. omega 9-jvj-ich-fish oil (Fish OiL) 300-1,000 mg capsule Take by mouth. sertraline (ZOLOFT) 50 mg tablet Take 1 tablet (50 mg total) by mouth in the morning. 90 tablet 1 zinc gluconate 50 mg tablet Take 1 tablet (50 mg total) by mouth in the morning. sertraline (ZOLOFT) 50 mg tablet Take 1 tablet (50 mg total) by mouth in the morning. (Patient not taking: Reported on 02/25/2024) 90 tablet 0 No current facility-administered medications on file prior to visit. PHYSICAL EXAMINATION: BP 111/74 Pulse 72 Ht 160 cm (5' 3 ) Wt 53.1 kg (117 lb 1.6 oz) SpO2 97% BMI 20.74 kg/m General appearance: no acute distress. Eyes: no conjunctival erythema, no scleral icterus. Ears, Nose, Mouth and Throat: external ears unremarkable, external nose and mouth unremarkable Respiratory: normal work of breathing Skin: No rash/ lesions/ulcers/ induration/subcutaneous nodules in visible regions. Neurologic: face symmetric at rest and activation, no dysarthria, tongue protrudes midline and palate elevates symmetrically, Mallampati class IV, no tremor or abnormal movements Mental Status: Cognitive: Alert and oriented. Insight good. Judgment good. DATA: Lab Results Component Value Date WBC 3.0 (L) 08/07/2023 HGB 12.4 08/07/2023 HCT 37.0 08/07/2023 MCV 99 08/07/2023 PLT 260 08/07/2023 Chemistry Component Value Date/Time K 4.0 02/13/2023 0943 CL 102 02/13/2023 0943 CO2 31 02/13/2023 0943 BUN 13 10/01/2023 1324 CREATININE 0.72 10/01/2023 1324 GLU 99 02/13/2023 0943 Component Value Date/Time CALCIUM 9.4 10/01/2023 1324 ALKPHOS 64 02/13/2023 0943 AST 20 02/13/2023 0943 ALT 18 02/13/2023 0943 Lab Results Component Value Date TSH 1.44 08/07/2023 Sleep Study Results: HST DATE OF STUDY: 11/27/2023 DIAGNOSIS: Obstructive Sleep Apnea JORGE A 13 seW3sic 86% COMMENTS: This home sleep apnea test performed with an oral appliance demonstrates residual obstructive sleep apnea worse in supine positioning. Clustering of events may suggestive additional sleep-stage dependence. Frequent brittany obstructive apneas associated with desaturation were observed at times in supine positioning for which CPAP would likely be more effective treatment option. IMPRESSION/RECOMMENDATIONS: 1. Obstructive sleep apnea 2. Hypersomnia 3. Other insomnia Stephanie Larson is a 68 y.o. female with medical problems including as above, presenting in follow up for BERE JORGE A 13 [id number] 86% while wearing an oral appliance. She is waking up tired and sleepy feeling un rested. She is willing to try CPAP. I have ordered an auto CPAP 5-20 cm water, compliance was discussed. Regarding insomnia she is likely getting into bed too late for wake-up time of 10:00 a.m., discussed bedtime of 2:00 a.m. would be reasonable for this wake up time. She is also using an iPad before bed, we discussed the relationship with blue light and sleep disruption. Recommended that she stop using electronics 1-2 hours before bedtime She was given the link for the online [facility] go to sleep program (CBT-) if her difficulty with insomnia persists despite CPAP use Return for CPAP compliance 31-90 days after receiving her machine EDUCATION: Pathophysiology of BERE was explained. Health risks associated with untreated BERE were discussed (cardiopulmonary, cerebrovascular, and anesthesia/sedative-related). Risks associated with excessive daytime sleepiness, particularly while driving/operating machinery were discussed. The patient was instructed to avoid such activities if feeling sleepy, and to stop the activity if sleepiness occurs (head well puller at the next safe opportunity if driving). BERE treatment options were discussed. CPAP is the most predictably effective treatment. If indicated and prescribed, CPAP must be used every night, all night for full benefits. It may take several weeks until fully accustomed to using the treatment, and before benefits (improved sleep quality and daytime altertness) are noticeable. Potential problems with CPAP were reviewed. Interim measures to reduce obstructive sleep apnea severity were recommended (avoidance of the supine position and elevation of the upper body and during sleep). Above plan as discussed with the patient who acknowledged understanding and agreement. MARGY FOREMAN MD [facility] [address] [place] [id number] documented in this encounter [facility] 02-25-2024 Instructions Margy Foreman MD - 02/25/2024 11:30 AM EDT Go! To Sleep through [facility], self paced 6 week course, $40 [email or web address] REQUIREMENTS FOR PAP (CPAP/BPAP/ASV) COMPLIANCE All insurances vary but these are the most common compliance requirements. Please check with your insurer/DME company for your specific compliance requirements: 1) Minimum PAP use is defined as follows (all apply): A. At least 4 hours per day/night (24 hour period) B. At least 21 nights (=70% usage) during a 30 day period C. Minimum usage must be demonstrated within the first 90 days (starts the day you obtain your PAP machine from your supplier) 2) You must have a follow up visit at the Sleep Clinic: A. Follow up visit appointment must be at least 31 and no more than 90 days after receiving your PAP machine. B. It is your responsibility to reschedule this appointment if there is a delay in receiving your PAP machine that would not allow enough time to demonstrate sufficient use. If the above requirements are not met: 1) You may have to re-qualify to keep your PAP machine: a repeat sleep study may be required. 2) You may have to return your PAP machine to the supplier or receive a bill from the supplier. 3) These consequences will be determined by your insurance company. documented in this encounter [employer] 02-20-2024 History of Present illness Narrative Subjective SUBJECTIVE: Patient ID: Stephanie Larson is a 68 y.o. female who presents for a Medicare Annual Wellness exam. HPI The following portions of the patient's history were reviewed and updated as appropriate: allergies, current medications, past family history, past medical history, past social history, past surgical history and problem list. AWV FLOWSHEET : Lifestyle Assessment Do you smoke or use smokeless tobacco?: No If you smoke or use smokeless tobacco, are you ready to quit?: NA Are you exposed to secondhand smoke?: No On average, how many drinks of alcohol do you consume in a week?: 1 or less Do you exercise for 30 or more minutes on average at least 3 days a week?: Sometimes Do you have any tooth, denture, or oral problems?: (!) Yes Do you snore or has anyone told you that you snore?: (!) Yes Do you try to eat a balanced diet?: Yes Do you experience leakage of urine, also known as urinary incontinence?: (!) Sometimes Do you have difficulty performing any of these activities? (check all that apply): None Do you have difficulty performing any of these activities? (check all that apply): None Fall Risk Fall Risk Assessment Completed?: Yes Have you fallen in the past year?: No Are you worried about falling?: No Do you feel unsteady when standing or walking?: No Risk Stratification: Low Risk Depression Screening Little interest or pleasure in doing things: Not at all Feeling down, depressed, or hopeless: Not at all Trouble falling or staying asleep, or sleeping too much: (!) More than half the days Feeling tired or having little energy: (!) More than half the days Poor appetite or overeating: Not at all Feeling bad about yourself - or that you are a failure or have let yourself or your family down: Not at all Trouble concentrating on things, such as reading the newspaper or watching television: Not at all Moving or speaking so slowly that other people could have noticed. Or the opposite - being so fidgety or restless that you have been moving around a lot more than usual: Not at all Thoughts that you would be better off , or of hurting yourself in some way: Not at all PEG Scale Safety Assessment Do you have throw rugs on the floor?: No Do you feel safe at your home?: Yes Do you feel unsteady when walking?: No Are you having difficulty with driving?: No Do you have trouble seeing?: No What assistive device do you use? (check all that apply): None Hearing Assessment Do you strain or struggle to hear/understand conversations?: No Do you have trouble hearing the television or radio when others do not?: No Does your family ever voice concerns about your hearing?: No Do you wear hearing aid/s?: No Personal Health During the past 4 weeks, how would you rate your overall health?: Very Good Do you understand how to take all of your medications?: Yes How confident are you that you can control and manage most of your health problems?: Very confident In the past 12 months, how many times have you been hospitalized?: None End of Life Planning Do you have a living will?: Yes Do you have a durable power of consumer attorney?: Yes Cognitive Screening Do you have trouble remembering or recalling facts or events?: No Do family members or caregivers report that you have difficulty remembering things?: No Clock Drawing Test: Normal REVIEW OF SYSTEMS: Review of Systems Objective PHYSICAL EXAMINATION: Vitals: 02/20/24 1405 Weight: 53.9 kg (118 lb 12.8 oz) Height: 160 cm (5' 3 ) Physical Exam Assessment/Plan ASSESSMENT/PLAN Encounter Diagnoses Name Primary? Medicare annual wellness visit, subsequent Yes Screening for depression Health maintenance discussed. Depression screen was negative. At least 3 minutes spent administering and discussing. Cognitive screen did not reveal any impairment. She has advanced directives in place. Return in about 1 year (around 02/19/2025). documented in this encounter [facility] 01-02-2024 Miscellaneous Notes Pt called regarding HST results, scheduled RV with AD on 02/24 at [facility] for review of 10/22/23 HST done with dental device. Pt LS by EM and has now read her my chart message from EM. Confirmation mailed for appt. documented in this encounter [facility] 01-02-2024 Telephone encounter Note Pt called regarding HST results, scheduled RV with AD on 02/24 at [facility] for review of 10/22/23 HST done with dental device. Pt LS by EM and has now read her my chart message from EM. Confirmation mailed for appt. [facility] 12-23-2023 Miscellaneous Notes Images from the original note were not included. December 19, 2023 Me [facility] 12/19/23 6:13 PM Note Pt has not yet read her my chart message. LVM for her to call and schedule appt and informed in message also that a my chart message has been sent by EM with results as well- my direct number left for c/b. December 18, 2023 12/18/23 10:22 AM Hannah Barrera routed this conversation to [place] November 30, 2023 11/30/23 11:29 AM Nereyda Singh MD routed this conversation to [facility] Nereyda Singh MD 11/30/23 11:24 AM Note HST on oral appliance interpreted. JORGE A improved from 19 to 13 overall however min O2 86 vs 87 prior to OA. Regardless still has residual BERE with OA for which CPAP would be recommended. At the very least she should avoid sleeping on her back if desires to continue with OA. She is not a candidate for surgical alternatives to CPAP based on Medicare severity from this study in addition to needing to have tried and failed CPAP. Apnea severity may be underestimated on home studies. Will send her a message and see if we can get her scheduled for follow up with myself or another sleep provider to discuss further. Pt LVM, called her back and LVM with my number and main scheduling number to make appt also. [facility] 12-23-2023 Telephone encounter Note Images from the original note were not included. December 19, 2023 [facility] 12/19/23 6:13 PM Note Pt has not yet read her my chart message. LVM for her to call and schedule appt and informed in message also that a my chart message has been sent by EM with results as well- my direct number left for c/b. December 18, 2023 12/18/23 10:22 AM Hannah Barrera routed this conversation to [place] November 30, 2023 11/30/23 11:29 AM Nereyda Singh MD routed this conversation to [facility] Schedul[facility] Nereyda Singh MD 11/30/23 11:24 AM Note HST on oral appliance interpreted. JORGE A improved from 19 to 13 overall however min O2 86 vs 87 prior to OA. Regardless still has residual BERE with OA for which CPAP would be recommended. At the very least she should avoid sleeping on her back if desires to continue with OA. She is not a candidate for surgical alternatives to CPAP based on Medicare severity from this study in addition to needing to have tried and failed CPAP. Apnea severity may be underestimated on home studies. Will send her a message and see if we can get her scheduled for follow up with myself or another sleep provider to discuss further. [employer] 12-23-2023 Telephone encounter Note Pt LVM, called her back and LVM with my number and main scheduling number to make appt also. [employer] 11-06-2023 History of Present illness Narrative Images from the original note were not included. ` Magdy Mai MD Obstetrics and Gynecology Patient: Stephanie Larson : 1955 (68 y.o.) Yearly Wellness Exam Date: 11/06/2023 Reason for Visit - Chief Complaint Patient presents with Gynecologic Exam Medicare year Last Mammogram: 09/09/23 neg Last Pap: 10/29/22 neg Colonoscopy: DEXA: 08/15/20 Scheduled in August Complaints: no complaints. Visit Vitals BP 110/68 Wt 117 lb LMP (LMP Unknown) BMI 21.23 kg/m OB Status Postmenopausal Smoking Status Never BSA 1.53 m History of Present Illness, Associated Treatments and Results - OB History Para Term AB Living 2 0 0 0 0 2 SAB IAB Ectopic Multiple Live Births 0 0 0 0 0 # Outcome Date GA Lbr Manjinder/2nd Weight Sex Delivery Anes PTL Lv 2 1 Review of Systems - Constitutional: Negative. HENT: Negative. Eyes: Negative. Respiratory: Negative. Cardiovascular: Negative. Gastrointestinal: Negative. Endocrine: Negative. Genitourinary: Negative. Musculoskeletal: Negative. Skin: Negative. Allergic/Immunologic: Negative. Neurological: Negative. Hematological: Negative. Psychiatric/Behavioral: Negative. Allergies Allergen Reactions Ibuprofen Hives Other Reaction(s): hives and sores, other Also experiences sores in mouth after taking Ibuprofen Other Reaction(s): other Morphine Other Other Reaction(s): other, Unknown, Vomiting Other Reaction(s): Vomiting Current Outpatient Medications: calcium carbonate 1500 (600 Ca) MG tablet, every 12 (twelve) hours., Disp: , Rfl: chlorhexidine (Peridex) 0.12 % solution, , Disp: , Rfl: cholecalciferol (Vitamin D-3) 25 MCG (1000 UT) capsule, 1 (one) time each day at the same time., Disp: , Rfl: cyclobenzaprine (Flexeril) 10 MG tablet, , Disp: , Rfl: esomeprazole (NexIUM) [address] capsule, Take 40 mg by mouth in the morning. Take before meals., Disp: , Rfl: mirabegron ER (Myrbetriq) 50 MG 24 hr tablet, Take 50 mg by mouth at bedtime. Do not crush, chew, or split., Disp: , Rfl: mirabegron ER (Myrbetriq) 50 MG 24 hr tablet, Take 1 tablet (50 mg) by mouth in the morning. Do not crush, chew, or split.., Disp: 30 tablet, Rfl: 11 omega-3 1000 MG capsule capsule, Take by mouth., Disp: , Rfl: sertraline (Zoloft) 25 MG tablet, Take 50 mg by mouth in the morning., Disp: , Rfl: zinc gluconate 50 MG tablet, 1 (one) time each day at the same time., Disp: , Rfl: Past Medical History: Diagnosis Date Allergic rhinitis Chronic sinusitis GERD (gastroesophageal reflux disease) History of medical problems possible jaw bone necrosis - due to [place] Insomnia OP (osteoporosis) ([facility]) Urinary incontinence Past Surgical History: Procedure Laterality Date ANKLE SURGERY Right 03/1994 COLONOSCOPY 2012 repeat 2021 HERNIA REPAIR 2011 hiatus NEELIMA FUNDOPLICATION 09/08/2010 TUBAL LIGATION 1982 VAGINAL DELIVERY ; x2 Family History Problem Relation Name Age of Onset Hypertension Mother Heart disease Mother Hypertension Father Heart disease Father Kidney disease Father Diabetes Father Melanoma Neg Hx Social History Tobacco Use Smoking Status Never Smokeless Tobacco Never Physical Exam - General appearance, mentation, extraocular movements, facial strength and movement, hearing, upper and lower extremity strength and tone, sensation to gross testing, coordination, and gait are normal or at baseline unless noted below. Physical Exam Constitutional: Appearance: Normal appearance. Genitourinary: Right Labia: No rash or lesions. Left Labia: No lesions or rash. No vaginal discharge or erythema. No vaginal prolapse present. No vaginal atrophy present. Right Adnexa: not tender and no mass present. Left Adnexa: not tender and no mass present. No cervical lesion. Uterus is not tender. Uterus is anteverted. Breasts: Right: Normal. No mass or nipple discharge. Left: Normal. No mass or nipple discharge. HENT: Head: Normocephalic and atraumatic. Cardiovascular: Rate and Rhythm: Normal rate and regular rhythm. Pulmonary: Breath sounds: Normal breath sounds. Abdominal: General: There is no distension. Palpations: Abdomen is soft. There is no mass. Tenderness: There is no abdominal tenderness. Musculoskeletal: General: Normal range of motion. Cervical back: Neck supple. Lymphadenopathy: Cervical: No cervical adenopathy. Neurological: Mental Status: She is alert and oriented to person, place, and time. Skin: General: Skin is warm and dry. Psychiatric: Mood and Affect: Mood normal. Inner inner upper labia minora Small urethrai diverticulum Assessment/Plan ICD-10-CM 1. Urinary urgency R39.15 mirabegron ER (Myrbetriq) 50 MG 24 hr tablet 2. Urge incontinence N39.41 3. Encounter for gynecological examination without abnormal finding Z01.419 4. Screening for malignant neoplasm of cervix Z12.4 5. Encounter for screening mammogram for malignant neoplasm of breast Z12.31 Bilateral screening mammogram with tomosynthesis Pap and exam performed. Mammogram ordered Results can be found in MyChart in 7 days Bone [facility] discussed Myyrbetriq 25 mg samples given Pt says only 25 mg does not work.She takes 50mgtiw to relieve symptoms. Return 1 year/prn documented in this encounter [facility] 10-23-2023 Miscellaneous Notes 10/22 received HST order 10/23 Called PT LM to schedule sleep study. HST order and 10/22 [place] notes in [facility] With oral appliance [facility] Telephone encounter Note 10/22 received HST order 10/23 Called PT LM to schedule sleep study. HST order and 10/22 Glen notes in epic [facility] 10-[facility]-2023 History of Present illness Narrative CHIEF COMPLAINT: Stephanie Larson is a 68 y.o. female who presents 10/22/[address] Che to [facility] for evaluation of obstructive sleep apnea, with the chief complaint of he thought maybe I should follow up. The patient was accompanied by . HISTORY OF PRESENT ILLNESS: Stephanie Larson has obstructive sleep apnea ( 3 and 4% JORGE A 19 min O2 87% ) recently diagnosed by home study performed by her dentist's office, followed by a MAD ([facility] [employer]). She is has not previously tried PAP therapy. She is referred for results review and treatment discussion. The study was ordered for jaw pain in the setting of snoring and a small airway. She has noted resolution of snoring with the dental device. She describes chronic difficulty falling asleep, sometimes necessitating a delayed wake time and napping. Ms. Larson denies other signs/symptoms of parasomnias, sleep-related movement disorders, narcolepsy. Sleep Habits: She goes to bed at 11p and gets out of bed at 9-10a. Sleep onset is not well, sometimes 3-4a with stress often 3-4x per week. There is/are 0-1 awakening(s) caused by drooling, nocturia. Naps: sometimes in afternoon. Celeste Sleepiness Scale: Sitting and Reading: Never Watching TV: (!) Moderate Chance Sitting inactive in a public place (theater, meeting): Never As a passenger in a car for an hour without a break: (!) Moderate Chance Lying down in the afternoon to rest: (!) Moderate Chance Sitting and talking to someone: Never Sitting quietly after lunch (without alcohol): Never In a car, while stopped for a few minutes in traffic: Never Total: 6 PAST MEDICAL HISTORY: Patient Active Problem List Diagnosis Abnormal weight loss Heartburn Diaphragmatic hernia Gastroesophageal reflux disease Hiatal hernia Irritable bowel syndrome Osteoporosis Hypercholesterolemia Diaphragmatic hernia Gastroesophageal reflux disease Necrosis of bone of jaw Dislocation of jaw Mild major depression (CMS-HCC) Sleep apnea Past Medical History: Diagnosis Date Osteoporosis UTI (urinary tract infection) recurrent Past Surgical History: Procedure Laterality Date COLONOSCOPY 2011 Dr. Dahl COLONOSCOPY N/A 01/03/2022 Performed by Terry Ronquillo MD at [facility] FRACTURE SURGERY 1993 HERNIA REPAIR 2009 paraesophageal hernia, Dr. Rawls MCDebbi TOOTH ZOROASTRIAN TUBAL LIGATION 1981 ALLERGIES: Allergies Allergen Reactions Ibuprofen Hives and Other (See Comments) Also experiences sores in mouth after taking Ibuprofen Morphine Vomiting and Other (See Comments) MEDICATIONS: Current Outpatient Medications on File Prior to Visit Medication Sig Dispense Refill calcium carbonate-vitamin D3 (CALCIUM 500 + D) 500 mg-10 mcg (400 unit) chewable tablet Calcium 500 + D one tablet daily esomeprazole (NexIUM) 40 mg capsule Take 1 capsule (40 mg total) by mouth every morning before breakfast. fexofenadine-pseudoephedrine (ALVA-D) 60-120 mg per 12 hr tablet Take 1 tablet by mouth once daily. mirabegron (MYRBETRIQ) 50 mg tablet extended release 24 hr Take 1 tablet (50 mg total) by mouth in the morning. omega 4-hmf-yxs-fish oil (Fish OiL) 300-1,000 mg capsule Take by mouth. sertraline (ZOLOFT) 50 mg tablet Take 1 tablet (50 mg total) by mouth in the morning. 90 tablet 0 sertraline (ZOLOFT) 50 mg tablet Take 1 tablet (50 mg total) by mouth in the morning. 90 tablet 1 zinc gluconate 50 mg tablet Take 1 tablet (50 mg total) by mouth in the morning. No current facility-administered medications on file prior to visit. FAMILY HISTORY: Family History Problem Relation Age of Onset Hypertension Mother Kidney disease Mother Arthritis Father COPD Father Diabetes Father Hypertension Father Stroke Sister Hypertension Son Breast cancer Neg Hx Denies family sleep history. SOCIAL HISTORY: Lives in [place]. 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 Social History Socioeconomic History Marital status: Spouse name: Not on file Number of children: Not on file Years of education: Not on file Highest education level: Not on file Occupational History Not on file Tobacco Use Smoking status: Never Smokeless tobacco: Never Substance and Sexual Activity Alcohol use: Yes Alcohol/week: 1.0 standard drink of alcohol Types: 1 Glasses of wine per week Comment: ocassionally Drug use: Never Sexual activity: Yes Partners: Male Other Topics Concern Not on file Social History Narrative Not on file Social Determinants of Health Financial Resource Strain: Low Risk (02/14/2023) Overall Financial Resource Strain (CARDIA) Difficulty of Paying Living Expenses: Not very hard Food Insecurity: No Food Insecurity (04/03/2023) Hunger Screening Food Insecurity - Worry: Never True Food Insecurity - Inability: Never True Transportation Needs: No Transportation Needs (02/14/2023) PRAPARE - Transportation Lack of Transportation (Medical): No Lack of Transportation (Non-Medical): No Physical Activity: Inactive (02/14/2023) Exercise Vital Sign Days of Exercise per Week: 0 days Minutes of Exercise per Session: 0 min Stress: Stress Concern Present (02/14/2023) [employer] [place] [employer] - Occupational Stress Questionnaire Feeling of Stress : Very much Social Connections: Moderately Isolated (02/14/2023) Social Connection and Isolation Panel [NHANES] Frequency of Communication with Friends and Family: More than three times a week Frequency of Social Gatherings with Friends and Family: Twice a week Attends [employer] Services: Never Active Member of Clubs or Organizations: No Attends Club or Organization Meetings: Never Marital Status: Interpersonal Safety: Not At Risk (02/14/2023) Humiliation, Afraid, Rape, and Kick questionnaire Fear of Current or Ex-Partner: No Emotionally Abused: No Physically Abused: No Sexually Abused: No Housing Instability: Low Risk (02/14/2023) Housing Instability Housing Instability: No REVIEW OF SYSTEMS: 10 of 14 systems reviewed. Positives that are not being addressed by the patient s other physicians: Denies. PHYSICAL EXAMINATION: BP 120/62 Pulse 75 Ht 160 cm (5' 3 ) Wt 52.8 kg (116 lb 8 oz) SpO2 97% BMI 20.64 kg/m General appearance: no acute distress. Eyes: no conjunctival erythema, no scleral icterus. 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 Respiratory: respiratory effort normal Musculoskeletal: normal gait and station. Extremities: No c/c/e. Skin: No rash/ lesions/ulcers/ induration/subcutaneous nodules in visible regions. Neurologic: CN II-XII grossly intact. Mental Status: Cognitive: Alert and oriented x 3. Insight good. Judgment good. DATA: PHYSICAL EXAMINATION: Lab Results Component Value Date WBC 3.0 (L) 08/07/2023 HGB 12.4 08/07/2023 HCT 37.0 08/07/2023 MCV 99 08/07/2023 PLT 260 08/07/2023 No results found for: FERRITIN Chemistry Component Value Date/Time K 4.0 02/13/2023 0943 CL 102 02/13/2023 0943 CO2 31 02/13/2023 0943 BUN 13 10/01/2023 1324 CREATININE 0.72 10/01/2023 1324 GLU 99 02/13/2023 0943 Component Value Date/Time CALCIUM 9.4 10/01/2023 1324 ALKPHOS 64 02/13/2023 0943 AST 20 02/13/2023 0943 ALT 18 02/13/2023 0943 Lab Results Component Value Date TSH 1.44 08/07/2023 HST as described above IMPRESSION/RECOMMENDATIONS: Obstructive sleep apnea JORGE A 29 min O2 87%, currently treated with MAD with improved snoring Sleep onset insomnia vs delayed sleep phase GERD Depression I reviewed her HST with her. Will scan a copy. I suggested a follow up HST on MAD. She is amenable. Ordered. Will reassess her trouble falling asleep after we have her HST on MAD results. May encourage CPAP trial if MAD inadequate. I encouraged regular follow up with her primary care physician and other specialists for preventative and otherwise indicated health screening as well as management of comorbid medical conditions. We specifically discussed the relationship between stress and sleep. I advise maintenance of a normal body weight, and support annual flu and COVID vaccination. I'd like to see her back within 3 month(s) for a HST on MAD review. EDUCATION: Pathophysiology of BERE was explained. Health risks associated with untreated BERE were discussed (cardiopulmonary, cerebrovascular, and anesthesia/sedative-related). Risks associated with excessive daytime sleepiness, particularly while driving/operating machinery were discussed. The patient was instructed to avoid such activities if feeling sleepy, and to stop the activity if sleepiness occurs (head well puller at the next safe opportunity if driving). BERE treatment options were discussed. CPAP is the most predictably effective treatment. If indicated and prescribed, CPAP must be used every night, all night for full benefits. It may take several weeks until fully accustomed to using the treatment, and before benefits (improved sleep quality and daytime altertness) are noticeable. Potential problems with CPAP were reviewed. Interim measures to reduce obstructive sleep apnea severity were recommended (avoidance of the supine position and elevation of the upper body and during sleep). Above plan as discussed with the patient who acknowledged understanding and agreement. Nereyda Singh MD [facility] [address] [place] [id number] documented in this encounter [facility] Evaluation note No assessment information [facility] Work Phone: Evaluation note Diagnosis Urinary urgency- Primary Urgency of urination Urge incontinence Encounter for gynecological examination without abnormal finding Screening for malignant neoplasm of cervix Screening for malignant neoplasm of the cervix Encounter for screening mammogram for malignant neoplasm of breast [facility] Diagnosis Seborrheic keratosis- Primary Lentigines Capillary angioma Nevus, non-neoplastic Rash and other nonspecific skin eruption [facility] Diagnosis Neutropenia, unspecified type (HCC)- Primary Other abnormality of red blood cells [facility] Diagnosis Neutropenia, unspecified type (HCC)- Primary Personal history of other malignant neoplasms of lymphoid, hematopoietic and related tissues [facility] Diagnosis Mild major depression ([facility]) Major depressive disorder, single episode, mild [facility] Diagnosis Obstructive sleep apnea- Primary Obstructive sleep apnea (adult) (pediatric) Other fatigue Hypersomnia Hypersomnia, unspecified Trouble getting to sleep [facility] Diagnosis Medicare annual wellness visit, subsequent- Primary Screening for depression [facility] Diagnosis Obstructive sleep apnea- Primary Obstructive sleep apnea (adult) (pediatric) Hypersomnia Hypersomnia, unspecified Other insomnia [facility]* Diagnosis Obstructive sleep apnea Obstructive sleep apnea (adult) (pediatric) documented [facility]* Diagnosis Obstructive sleep apnea- Primary Obstructive sleep apnea (adult) (pediatric) Difficulty using continuous positive airway pressure (CPAP) full face mask Other insomnia [facility]* Diagnosis History of cellulitis- Primary Irritant contact dermatitis due to other chemical products [facility]* Diagnosis Obstructive sleep apnea- Primary Obstructive sleep apnea (adult) (pediatric) [facility] Diagnosis Mild major depression ([facility]-HCC)- Primary Major depressive disorder, single episode, mild Gastroesophageal reflux disease, unspecified whether esophagitis present Hypercholesterolemia Pure hypercholesterolemia Leukopenia, unspecified type [facility] Diagnosis Leukopenia, unspecified type- Primary [facility] Diagnosis Obstructive sleep apnea- Primary Obstructive sleep apnea (adult) (pediatric) Intolerance of continuous positive airway pressure (CPAP) ventilation Gastroesophageal reflux disease, unspecified whether esophagitis present [facility] Diagnosis Neutropenia, unspecified type (HCC)- Primary [facility] Diagnosis Upper respiratory tract infection, unspecified type- Primary [facility] Diagnosis Mild major depression Major depressive disorder, single episode, mild documented [facility] encounter [facility]* Diagnosis Seborrheic keratosis- Primary Inflamed seborrheic keratosis Dermatographism Dermatographic urticaria [facility] Diagnosis Medicare annual wellness visit, subsequent- Primary Screening for depression [facility] filed[facility] in [facility] filedocumented in this encounter [facility] filedocumented in this encounter [facility] on filedocumented in this encounter [facility] filedocumented in this encounter [facility] on filedocumented in this encounter [facility] on filedocumented in this encounter [facility] filedocumented in this encounter [facility] on filedocumented in this encounter [facility]* Attachments The following attachments cannot be sent through Care Everywhere. * Upper Respiratory Infection ED (Frisian) [facility] on [facility] Purpose Family History No Family History Records FoundNo Family History Records FoundNo Family History Records FoundNo Family History Records FoundNo Family History Records FoundNo Family History Records FoundNo Family History Records FoundNo Family History Records FoundNo Family History Records FoundNo Family History Records Found Advance Directives No Advanced Directives Records Found Advance Directive Response Recorded Date/ Time Advance Directives No August 3:56pm Chief Complaint and Reason for Visit Chief Complaint Pain rt tmj and chris nible Reason for Referral Specialty Diagnoses / Procedures Referred By Naveen zaman Referred To Contact Diagnoses Obstructive sleep apnea Procedures Home sleep study Nereyda Singh MD [address] , [place] [address] Referral ID Status Reason Start Date Expiration Date V isits Requested Visits Authorized [id number] Pending Review 10/22/2023 10/21/2024 1 1 Additional Source Comments INFORMATION SOURCE (unrecogn ized section and content) DATE CREATED AUTHOR 03/08/2019 [facility] DATE CREATED AUTHOR AUTHOR'S ORGANIZ ATION 10/20/2020 [facility] DATE CREATED AUTHOR AUTHOR'S ORGANIZ ATION 09/23/2022 [facility] DATE CREATED AUTHOR AUTHOR'S ORGANIZ ATION 08/22/2024 [facility] DATE CREATED AUTHOR AUTHOR'S ORGANIZ ATION 11/25/2024 [facility] DATE CREATED AUTHOR AUTHOR'S ORGANIZ ATION 11/28/2024 [facility] DATE CREATED AUTHOR AUTHOR'S ORGANIZ ATION 12/12/2024 [facility] DATE CREATED AUTHOR AUTHOR'S ORGANIZ ATION 02/03/2025 [facility] DATE CREATED AUTHOR AUTHOR'S ORGANIZ ATION 02/27/2025 [facility] DATE CREATED AUTHOR AUTHOR'S ORGANIZ ATION 02/28/2025 [facility] Care Teams (unrecognized sec tion and content) Team Status: Inactive Member Role Status Dates Rip Torres MD Attending Provider Active Rogers Che DO Primary Care Provider Active Team Status: Active Member Role Status Dates Rogers Che DO Primary Care Provider Active Live In Companion Relationship Specialty Start Date End Date Rogers Che MD [address] [place] [address] PCP - General Family Medicine 11/06/23 Live In Companion Relationship Specialty Start Date End Date Rogers Che DO [address] [place] [address] PCP - General Family Medicine 09/04/24 Live In Companion Relationship Specialty Start Date End Date Rogers Che MD [address] [place] [address] PCP - General Family Medicine 11/06/23 Live In Companion Relationship Specialty Start Date End Date Rogers Che MD [address] [place] [address] PCP - General Family Medicine 11/06/23 Live In Companion Relationship Specialty Start Date End Date Rogers Che DO [address] [place] [address] PCP - General Family Medicine 09/04/24 Live In Companion Relationship Specialty Start Date End Date Rogers Che DO [address] [place] [address] PCP - General Family Medicine 02/12/19 Live In Companion Relationship Specialty Start Date End Date Rogers Che DO [address], [place] [address] PCP - General Family Medicine 02/12/19 Live In Companion Relationship Specialty Start Date End Date Rogers Che DO [address] [place] [address] PCP - General Family Medicine 09/04/24 Live In Companion Relationship Specialty Start Date End Date Rogers Che DO [address] [address] PCP - General Family Medicine 09/04/24 Live In Companion Relationship Specialty Start Date End Date TurnerevelinRogers may DO [address], [place] [address] PCP - General Family Medicine 02/12/19 Live In Companion Relationship Specialty Start Date End Date TurnerevelinRogers may DO [address], [place] [address] PCP - General Family Medicine 02/12/19 Live In Companion Relationship Specialty Start Date End Date Turnerj carlosRogers DO [address], [place] [address] PCP - General Family Medicine 02/12/19 Live In Companion Relationship Specialty Start Date End Date TurnerevelinRogers may DO [address], [place] [address] PCP - General Family Medicine 02/12/19 Live In Companion Relationship Specialty Start Date End Date Rogers Che DO [address] [place] [address] PCP - General Family Medicine 02/12/19 Live In Companion Relationship Specialty Start Date End Date Rogers Che DO [address] [place] [address] PCP - General Family Medicine 02/12/19 Live In Companion Relationship Specialty Start Date End Date Rogers Che DO [address] [place] [address] PCP - General Family Medicine 02/12/19 Live In Companion Relationship Specialty Start Date End Date TurnerevelinRogers may DO [address] [place] [address] PCP - General Family Medicine 02/12/19 Live In Companion Relationship Specialty Start Date End Date Rogers Che DO [address] [place] [address] PCP - General Family Medicine 02/12/19 Live In Companion Relationship Specialty Start Date End Date Rogers Che DO [address] [place] [address] PCP - General Family Medicine 02/12/19 Live In Companion Relationship Specialty Start Date End Date TurnerevelinRogers may DO [address] [place] [address] PCP - General Family Medicine 02/12/19 Live In Companion Relationship Specialty Start Date End Date Turnerj carlos Rogers Reinaldo [address], [place] [address] PCP - General Family Medicine 02/12/19 Live In Companion Relationship Specialty Start Date End Date Rogers Che [address] [place] [address] PCP - General Family Medicine 09/04/24 Live In Companion Relationship Specialty Start Date End Date Rogers Che DO [address], [place] [address] PCP - General Family Medicine 02/12/19 Live In Companion Relationship Specialty Start Date End Date Rogers Che MD [address] [place] [address] PCP - General Family Medicine 11/06/23 Live In Companion Relationship Specialty Start Date End Date Rogers Che MD [address] [place] [address] PCP - General Family Medicine 11/06/23 Goals (unrecognized section and content) Goals may be documented in a n alternate sectionNot on filedocumented as of this encounterNot on filedocumented as of this encounterNot on filedocumented as of this encounterNot on filedocumented as of this encounterNot on filedocumented as of this encounterNot on filedocumented as of this encounterNot on filedocumented as of this encounterNot on filedocumented as of this encounterNot on filedocumented as of this encounterNot on filedocumented as of this encounterNot on filedocumented as of this encounterNot on filedocumented as of this encounterNot on filedocumented as of this encounterNot on filedocumented as of this encounterNot on filedocumented as of this encounterNot on filedocumented as of this encounterNot on filedocumented as of this encounterNot on filedocumented as of this encounterNot on filedocumented as of this encounterNot on filedocumented as of this encounterNot on filedocumented as of this encounterNot on filedocumented as of this encounterNot on filedocumented as of this encounterNot on filedocumented as of this encounterNot on filedocumented as of this encounterNot on filedocumented as of this encounter Reason for Visit (unrecogniz ed section and content) Reason Comments Gynecologic Exam Reason Comments Skin Check Reason Comments Consult Leukopenia Reason Comments Neutropenia, unspecified type Reason Comments BMBX Reason Comments New Patient HypersomniaNo recent sleep study, [facility] PAP TherapyCurrently uses dental device Specialty Diagnoses / Procedures Referred By Naveen zaman Referred To Contact Sleep Medicine Diagnoses Other fatigue Hypersomnia Rogers Che G, DO [address] [facility], [place] [address] Nereyda Singh MD [facility] [place] [address] Referral ID Status Reason Start Date Expiration Date Visits Requested Visits Authorized [id number] Pending Review Specialty Services Required 08/07/2023 08/06/2024 1 1 Reason Onset Date Comments Sleep Lab 10/23/2023 HST Reason Comments MAW Reason Comments Follow-up Sleep Apnea HST: 11/27/2023 (Use d Dental Device) Specialty Diagnoses / Procedures Referred By Naveen zaman Referred To Contact Diagnoses Obstructive sleep apnea Procedures Home sleep study Nereyda Singh MD [address] , [facility] [address] [place] [address] Referral ID Status Reason Start Date Expiration Date Visits Re quested Visits Authorized [id number] Closed 10/22/2023 10/21/2024 1 1 Reason Comments Med Refill Reason Comments Sleep Apnea Compliance/Setup: ME: [facility] Reason Comments wound on leg recheck Reason Comments Depression Hypertension Hyperlipidemia Reason Onset Date Comments Sleep Lab 09/09/2024 PAP Reason Comments Sleep Apnea DME: [facility] Reason Comments Neutropenia Reason Comments Follow-up Bronchitis Reason Comments Suspicious Skin Lesion Reason Comments maw Source Comments (unrecognize d section and content) In the event this informatio n is protected by the Federal Confidentiality of Alcohol and Drug Abuse Patient Records regulations: The Federal rules restrict any use of the information to criminally investigate or prosecute any alcohol or drug abuse patient.[facility] Center[facility] the event this information is protected by the Federal Confidentiality of Alcohol and Drug Abuse Patient Records regulations: The Federal rules restrict any use of the information to criminally investigate or prosecute any alcohol or drug abuse patient.[facility] CenterIn the event this information is protected by the Federal Confidentiality of Alcohol and Drug Abuse Patient Records regulations: The Federal rules restrict any use of the information to criminally investigate or prosecute any alcohol or drug abuse patient.[facility] CenterIn the event this information is protected by the Federal Confidentiality of Alcohol and Drug Abuse Patient Records regulations: The Federal rules restrict any use of the information to criminally investigate or prosecute any alcohol or drug abuse patient.[facility] CenterIn the event this information is protected by the Federal Confidentiality of Alcohol and Drug Abuse Patient Records regulations: The Federal rules restrict any use of the information to criminally investigate or prosecute any alcohol or drug abuse patient.[facility] FOR RECORDS PERTAINING TO PATIENTS WHO ARE OR HAVE BEEN ENROLLED IN A CHEMICAL DEPENDENCY/SUBSTANCEABUSE PROGRAM, SOME INFORMATION MAY BE OMITTED. This clinical summary was aggregated from multiple sources. Caution should be exercised in using it in the provision of clinical care. This summary normalizes information from multiple sources, and as a consequence, information in this document may materially change the coding, format and clinical context of patient data. In addition, data may be omitted in some cases. CLINICAL DECISIONS SHOULD BE BASED ON THE PRIMARY CLINICAL RECORDS. [employer] [facility]. provides no warranty or guarantee of the accuracy or completeness of information in this document.
--- NOTE | 2025-06-11 18:20 | CT_ITS ---
The [address] [address] Patient Name: LEAH LARSON MRN: [id number] date: 1955 Sex: F Assigned Patient Location: ER Current Patient Location: ED.MAIN Accession/Order Number: [id number] Exam Date: 06/11/2025 18:26 Report Date: 06/11/2025 19:04 At the request of: VAL PAINTING MD Procedure: CT stroke head/brain wo con CT BRAIN /STROKE WITHOUT CONTRAST: CLINICAL HISTORY: new rt sided numbness COMPARISON: None TECHNIQUE: Contiguous axial unenhanced images were obtained through the brain. This CT exam was performed using one or more following dose reduction techniques: Automated exposure control, adjustment of the mA and/or kV according to patient size, or use of iterative reconstruction technique. FINDINGS: There is no evidence of midline shift, intra or extra-axial fluid collection, hemorrhage or CT evidence of of acute large vascular distribution stroke. Vascular calcifications Visualized intraorbital contents appear unremarkable. Visualized paranasal sinuses are clear. The surrounding soft tissues are normal. CT/CT stroke head/brain wo con IMPRESSION: NO ACUTE INTRACRANIAL ABNORMALITY. Discussed with Dr Painting 06/11/2025 1902 hours Impression dictated by: Yvan Carver M.D. 06/11/2025 7:04 PM Dictation Location: [place] [address] Electronically authenticated by: [id number] Y Date: 06/11/2025 19:04
--- NOTE | 2025-06-11 18:20 | ECG_ITS ---
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: : 1955 Requested By: [id number] Order Number: [id number] Reading MD: RIK PALM Measurements Intervals Addison Rate: 65 P: 61 KS: 152 QRS: -74 QRSD: 86 T: 201 QT: 374 QTc: 386 Interpretive Statements 1100 Sinus rhythm 1570 with occasional ventricular premature complexes 4364 Twave abnormality, possible anterolateral ischemia 4664 Twave abnormality, possible inferior ischemia 7200 Abnormal left axis deviation 8003 Consistent with pulmonary disease 8102 Low QRS voltage in chest leads 9150 abnormal ECG No previous ECG available for comparison Electronically Signed On 06-14-2025 16:43:35 EDT by RIK PALM
--- NOTE | 2025-06-11 18:31 | ED.GENADUL1 ---
HPI HPI - General Adult General Chief complaint: Neuro Symptoms/Deficit Stated complaint: FACE IS NUMB ON RIGHT SIDE Time Seen by Provider: 06/11/25 18:13 Source: patient Mode of arrival: walk-in Limitations: no limitations History of Present Illness HPI narrative: The patient is coming to the ER after she noted that she had right-sided facial numbness almost 6 hours ago she went to sleep and she woke up 2 hours ago with the numbness in the right side of the face more prominent and that was she came to us. Right now the patient presenting to us 6 hours and a half after the last known well The patient denies any other complaints no headache no nausea no vomiting no difficulty breathing or chest pain There is no difficulty speaking as well and there is no imbalance Related Data Previous Rx's ?Medication ?Instructions ?Recorded albuterol sulfate 90 mcg/actuation 2 inh inhalation QID PRN shortness 12/09/24 aerosol inhaler of breath or wheezing #8.5 grams benzonatate 200 mg capsule 200 mg PO TID PRN cough #20 caps 12/09/24 methylprednisolone 4 mg tablets in 4 mg PO DAILY #21 ea 12/09/24 a dose pack (Medrol (Sonny)) Allergies Allergy/AdvReac Type Severity Reaction Status Date / Time ibuprofen Allergy Severe Swelling Verified 06/11/25 18:08 of Lip/Tongue/Throat morphine Allergy Severe Vomiting Verified 06/11/25 18:08 Review of Systems ROS Status of ROS 10 or more systems reviewed and unremarkable except as noted in history and below PFSH PFSH Social History Little interest or pleasure in doing things: not at all Feeling down, depressed, or hopeless: not at all Exam Narrative Exam Narrative: Nurses notes and vital signs reviewed and patient is not hypoxic. General: Well-appearing and in no apparent distress. Skin: Warm, dry, no pallor noted. No rash. Head: Normocephalic, atraumatic. Neck: Supple, non-tender. Eye: Pupils are equal, round and EOMI. No scleral icterus.. Respiratory: No accessory muscle use or respiratory distress. Lungs are clear to auscultation, no wheezing, rales or rhonchi Chest Wall: no tenderness Back: No midline thoracic or lumbar vertebral tenderness. No CVA tenderness Musculoskeletal: normal ROM, no calf or popliteal tenderness, no lower extremity edema/swelling GI: Abdomen is soft, non-distended. Normal bowel sounds. No masses appreciated. No tenderness to palpation. No rebound, guarding, or rigidity noted. Neurological: A&O x4. No cranial nerve dysfunction observed. No truncal ataxia. Moves all extremities. . The patient NIH score is 0 to 1 could be given for the sensation Psychiatric: Cooperative and interactive. Normal mood and affect. Constitutional Vital Signs, click to edit/add: Last Vital Signs Temp 98.1 F 06/11/25 18:08 Pulse 64 06/11/25 18:08 Resp 18 06/11/25 18:08 BP 150/77 H 06/11/25 18:08 Pulse Ox 97 06/11/25 18:08 O2 Del Method Room Air 06/11/25 18:08 Course Vital Signs Vital signs: Vital Signs Temperature 98.1 F 06/11/25 18:08 Pulse Rate 64 06/11/25 18:08 Respiratory Rate 18 06/11/25 18:08 Blood Pressure 150/77 H 06/11/25 18:08 Pulse Oximetry 97 06/11/25 18:08 Oxygen Delivery Method Room Air 06/11/25 18:08 Temperature 98.1 F 06/11/25 18:08 Pulse Rate 64 06/11/25 18:08 Respiratory Rate 18 06/11/25 18:08 Blood Pressure 150/77 H 06/11/25 18:08 Pulse Oximetry 97 06/11/25 18:08 Oxygen Delivery Method Room Air 06/11/25 18:08 Medical Decision Making [facility] Narrative Medical decision making narrative: Stroke workup initiated for the patient The patient EKG showing sinus rhythm with a heart rate of 65 nonspecific T wave changes noted Discharge Plan Discharge Patient Disposition: Still a Patient
[2025-06-11 18:37] LABS: Hematocrit 35.3 % (36.0-48.0); Hemoglobin 11.6 g/dL (12.0-16.0); Immature Granulocytes Abs Auto 0.00 10^3/uL (0.00-0.03); Immature Granulocytes Pct Auto 0.0 % (0.0-0.5); Lymphocytes Absolute Auto 2.1 10^3/uL (1.2-3.8); Mean Corpuscular HGB Conc 32.9 g/dL (29.9-35.2); Mean Corpuscular Hemoglobin 32.0 pg (26.7-34.0); Mean Corpuscular Volume 97.5 fL (81.0-99.0); Platelet Count 283 10^3/uL (150-450); Red Blood Count 3.62 10^6/uL (4.20-5.40); White Blood Count 3.7 10^3/uL (4.0-11.0)
[2025-06-11 18:52] LABS: INR 0.99; Prothrombin Time 10.5 sec (9.0-11.6)
[2025-06-11 19:15] LABS: Alanine Aminotransferase 23 U/L (14-59); Albumin Globulin Ratio 1.0; Albumin Level 3.6 g/dL (3.4-5.0); Alkaline Phosphatase 90 U/L (46-116); Anion Gap 12.4; Aspartate Amino Transferase 19 U/L (15-37); Blood Urea Nitrogen 13.0 mg/dL (7.0-18.0); Calcium 8.6 mg/dL (8.5-10.1); Carbon Dioxide 28.4 mmol/L (21.0-32.0); Chloride 106 mmol/L (98-107); Estimated GFR (African America >60 (>=60 mL/min/1.73m^2); Estimated GFR (Non-African Ame >60 (>=60 mL/min/1.73m^2); Globulin 3.7 g/dL; Glucose 115 mg/dL (74-106); Magnesium 1.9 mg/dL (1.8-2.4); Potassium 3.8 mmol/L (3.5-5.1); Sodium 143 mmol/L (136-145); Total Protein 7.3 g/dL (6.4-8.2)
--- NOTE | 2025-06-11 20:32 | CT_ITS ---
The [address] [address] Patient Name: LEAH LARSON MRN: [id number] date: 1955 Sex: F Assigned Patient Location: ER Current Patient Location: ER Accession/Order Number: [id number] Exam Date: 06/11/2025 20:41 Report Date: 06/11/2025 21:19 At the request of: SHWETA BELL MD Procedure: CT angio head CT angiogram head and neck performed with contrast CLINICAL HISTORY: paresthesia right face COMPARISON: CT head stroke protocol 06/11/2025 TECHNIQUE: CT angiogram images were obtained through the head and neck with coronal and sagittal and 3-D reconstruction. Evaluation degree of ICA narrowing was performed utilizing NASCET criteria. This CT exam was performed using one or more following dose reduction techniques: Automated exposure control, adjustment of the mA and/or kV according to patient size, or use of iterative reconstruction technique. FINDINGS: Three-vessel aortic arch. Carotid arteries are patent throughout the course. Codominant vertebral arteries. Intracranial ICAs are patent. Intracranial ICAs are patent. Anterior cerebral arteries and middle cerebral arteries are patent. Intradural vertebral arteries, picas, basilar artery, posterior cerebral arteries are patent. No findings of dural venous sinus thrombosis. Degenerative changes of the cervical spinal spine notably C5-6 CT/CT angio neck IMPRESSION: Negative for large vessel occlusion or hemodynamically significant stenosis. Impression dictated by: Yvan Carver M.D. 06/11/2025 9:19 PM Dictation Location: [place] [address] Electronically authenticated by: [id number] Y Date: 06/11/2025 21:19
--- NOTE | 2025-06-11 20:32 | CT_ITS ---
The [address] [address] Patient Name: LEAH LARSON MRN: [id number] date: 1955 Sex: F Assigned Patient Location: ER Current Patient Location: ER Accession/Order Number: [id number] Exam Date: 06/11/2025 20:41 Report Date: 06/11/2025 21:19 At the request of: SHWETA BELL MD Procedure: CT angio head CT angiogram head and neck performed with contrast CLINICAL HISTORY: paresthesia right face COMPARISON: CT head stroke protocol 06/11/2025 TECHNIQUE: CT angiogram images were obtained through the head and neck with coronal and sagittal and 3-D reconstruction. Evaluation degree of ICA narrowing was performed utilizing NASCET criteria. This CT exam was performed using one or more following dose reduction techniques: Automated exposure control, adjustment of the mA and/or kV according to patient size, or use of iterative reconstruction technique. FINDINGS: Three-vessel aortic arch. Carotid arteries are patent throughout the course. Codominant vertebral arteries. Intracranial ICAs are patent. Intracranial ICAs are patent. Anterior cerebral arteries and middle cerebral arteries are patent. Intradural vertebral arteries, picas, basilar artery, posterior cerebral arteries are patent. No findings of dural venous sinus thrombosis. Degenerative changes of the cervical spinal spine notably C5-6 CT/CT angio head IMPRESSION: Negative for large vessel occlusion or hemodynamically significant stenosis. Impression dictated by: Yvan Carver M.D. 06/11/2025 9:19 PM Dictation Location: [place] [address] Electronically authenticated by: [id number] Y Date: 06/11/2025 21:19
[2025-06-11] MEDS: ASPIRIN 81 MG TAB.CHEW PO (21:52)
== END 2025-06-11 22:03 | disposition left against medical advice (07) ==
PROVIDERS: Emergency Medicine; Emergency Provider Internal Medicine; PCP Family Medicine
DX: R20.2 Paresthesia of skin (principal)
CPT/HCPCS: 36415; 70450; 70496; 70498; 80053; 83735; 84484; 85025; 85610; 93005; 99284; Q9967